=== PATIENT | male | born 1955 | race Caucasian/White ===

== ENCOUNTER 2017-08-28 21:05 | Emergency (ER) | payer MEDICARE, MEDICAID, SELFPAY ==
--- NOTE | 2017-08-28 18:50 | RAD_ITS ---
STUDY: X-RAY - PELVIS AND LEFT HIP REASON FOR EXAM: Male, 62 years old. Fall. TECHNIQUE: Radiological exam, hip, unilateral, with pelvis when performed; 2 or 3 views. COMPARISON: None. FINDINGS: There is a non-specific bowel gas pattern. There are atherosclerotic vascular calcifications of the pelvic arteries. Surgical clips are seen in the right groin. Normal bilateral iliac wings, sacroiliac joints and visualized sacrum. Normal bilateral superior and inferior pubic rami. Normal pubic symphysis. Normal bilateral ischial tuberosities. Normal visualized femoral head. Normal acetabulum. Normal hip joint. RAD/Hip 2-3 Views with Pelvis IMPRESSION: Normal x-ray examination of the pelvis and hip. Electronically Signed: Ronald Sandhu MD at 21:49 EDT , Service support ,
--- NOTE | 2017-08-28 18:50 | RAD_ITS ---
STUDY: X-RAY - LEFT KNEE REASON FOR EXAM: Male, 62 years old. Fall. TECHNIQUE: 3 view(s) of the knee. COMPARISON: None. FINDINGS: There has been dilatation of the tibia and fibula. There is no focal or acute abnormality seen. No fracture. No dislocation. Normal appearance of the knee. No effusion. Vascular calcifications are seen. RAD/Knee 3 Views IMPRESSION: No acute abnormality. Electronically Signed: Ronald Sandhu MD at 21:48 EDT , Service support ,
--- NOTE | 2017-08-28 21:05 | DT_ITS ---
This patient was seen during an EMR downtime August 23, 2017 - August 30, 2017. This patient may have a combination of paper and electronic documentation or all paper documentation. All documentation is viewable within the e-chart portion of [employer] [facility] for each patient visit.
[2017-08-31 17:30] LABS: Hematocrit 33.1 % (40-54); Hemoglobin 11.5 g/dl (13.0-16.5); Mean Corp Hgb Conc 34.7 g/gl (32-36); Mean Corpuscular Hgb 31.2 pg (27.0-32.0); Mean Corpuscular Volume 89.7 fL (80-94); RBC Distribution Width CV 13.3 % (11.6-14.6); Red Blood Count 3.69 M/mm3 (4.6-6.2); White Blood Count 8.6 K/mm3 (4.4-11.0)
[2017-08-31 17:31] LABS: Mean Platelet Vol. 10.2 fl (6.2-12.0); Platelet Count 237 K/mm3 (150-450); RBC Distribution Width SD 43.4 fl (35.1-43.9); Scan Indicated on CBC? Y/N NO
[2017-08-31 20:04] LABS: BUN 25 mg/dL (7-18); BUN/Creat Ratio 19.8 RATIO (10-20); Creatinine, Serum 1.26 mg/dL (0.70-1.30); EST Glomerular Filtration Rate 62 mL/min (>60); Est Glom Filt Rate - Afr Amer 75 mL/min (>60); Estimated Creatinine Clearance 66.72 ml/min; Glucose 285 mg/dL (74-106)
[2017-08-31 20:05] LABS: Anion Gap 8 (5-15); Calcium,Total 8.1 mg/dL (8.5-10.1); Chloride 104 mmol/L (98-107); Potassium 4.3 mmol/L (3.5-5.1); Sodium Level 136 mmol/L (136-145)
== END 2017-08-28 23:33 | disposition home or self-care (01) ==
PROVIDERS: Emergency Provider Emergency Medicine
DX: L03.116 Cellulitis of left lower limb (principal); Z89.512 Acquired absence of left leg below knee; Z89.511 Acquired absence of right leg below knee; Z87.820 Personal history of traumatic brain injury
CPT/HCPCS: 73502; 73562; 80048; 83605; 85027; 86140; 87040; 96365; 96367; 96375; 99285; J7030; J7040; A4216; J2405

== ENCOUNTER 2017-09-03 14:36 | Inpatient (IN) | payer MEDICARE, MEDICAID, SELFPAY ==
[2017-09-03 14:37] VITALS: BP 129/45; PULSE 89; RESP 16; TEMP 36.8; O2SAT 98; BMI 27.8
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
--- NOTE | 2017-09-03 15:38 | CASEMGMT ---
Social Work Note Placed call to pt's human services case manager, Lola Lacey, and left vm notifying of observation status for potential placement. Provided with contact information for a return phone call. Maxine Haas, DIRECTOR RELIGIOUS EDUCATION, ENTERTAINMENT REPORTER
[2017-09-03 15:44] VITALS: BP 91/67; PULSE 77; RESP 18
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
[2017-09-03 16:20] VITALS: BP 119/68
--- NOTE | 2017-09-03 16:33 | CM.ED ---
Case management consulted for disposition planning and resource utilization. Patient assessed in the ED. Home: Patient states he lives with his brother, Raúl. He states that Raúl is not home very often due to work. His states his brother is unable to drive him to appointments. HHS/Aides: Denies home health. He does have aides twice a week for three hours a day. manager sales training is Lola Jacobs, through [facility], for [facility]. DME: Patient has a hospital bed and lift chair. PCP: Dennis Cervantes, with [facility] ([facility] in [place]). Specialists: Denies current specialists. Patient states he discharged from [facility] approximately two months ago. He states that he typically ambulates well with prosthesis. However, he says that since his leg has been swollen and painful, the vacuum on his prosthesis will not secure properly. He states this has caused him to have multiple falls. Patient states he does not feel safe at home alone. Patient is agreeable to to SNF placement. He does not want to go back to [facility]. [facility] SNF is [facility]. DC Plan: SNF pending precert. CM will continue to follow for safe and effective discharge planning.
[2017-09-03 16:41] LABS: Bedside Glucose 205 mg/dL (70-110)
[2017-09-03 16:45] VITALS: BMI 25.1; BMI 25.2
[2017-09-03 16:56] VITALS: BP 114/54; PULSE 84; RESP 16; TEMP 36.7; O2SAT 95
[2017-09-03] MEDS: 0.9% Normal Saline 1,000 ML 75 ML IV (17:30)
[2017-09-03 18:16] LABS: Absolute Lymphocyte Count 0.78 X10^3/ul (0.83-4.51); Basophil# 0.01 X10^3/uL; Basophil% 0.2 % (0-1); Eosinophil# 0.08 X10^3/uL; Eosinophils% 1.5 % (0-5); Hematocrit 28.4 % (40-54); Hemoglobin 9.8 g/dl (13.0-16.5); Lymphocyte # 0.78 X10^3/ul (4.0); Lymphocyte % 14.7 % (19-41); Mean Corp Hgb Conc 34.5 g/gl (32-36); Mean Corpuscular Hgb 31.1 pg (27.0-32.0); Mean Corpuscular Volume 90.2 fL (80-94); Monocyte# 0.44 X10^3/uL; Monocyte% 8.3 % (0-10); Neutrophil # 3.99 X10^3/uL (2.7-7.7); Neutrophil % 75.1 % (47-70); POSITIVE COUNT NO; POSITIVE DIFFERENTIAL NO; POSITIVE MORPHOLOGY NO; Platelet Count 259 K/mm3 (150-450); RBC Distribution Width CV 13.3 % (11.6-14.6); RBC Distribution Width SD 43.7 fl (35.1-43.9); Red Blood Count 3.15 M/mm3 (4.6-6.2); White Blood Count 5.3 K/mm3 (4.4-11.0)
[2017-09-03 18:28] LABS: Anion Gap 5 (5-15); BUN 30 mg/dL (7-18); BUN/Creat Ratio 16.8 RATIO (10-20); Calcium,Total 8.6 mg/dL (8.5-10.1); Chloride 103 mmol/L (98-107); Creatinine, Serum 1.79 mg/dL (0.70-1.30); EST Glomerular Filtration Rate 41 mL/min (>60); Est Glom Filt Rate - Afr Amer 50 mL/min (>60); Estimated Creatinine Clearance 45.57 ml/min; Glucose 264 mg/dL (74-106); Potassium 4.6 mmol/L (3.5-5.1); Sodium Level 132 mmol/L (136-145)
[2017-09-03 19:43] LABS: Bacteria 0 SEEN /hpf (None Seen); Mucous, Urine 0 SEEN /hpf (<or=2+); White Blood Cells 0 SEEN /hpf (0-5)
[2017-09-03 19:45] LABS: Color, Urine Yellow (Yellow); Glucose, Dipstick 50 mg/dl (Normal); Ketone-Dipstick Negative (Negative); Leukocyte Esterase-Dipstick Negative /ul (Negative); Nitrite-Dipstick Negative (Negative); Occult Blood-Urine 25 /ul (Negative); Protein-Dipstick 100 mg/dl (Negative); Specific Gravity, Urine 1.015 (1.002-1.030); Urine Bilirubin Dipstick Negative (Negative); Urine Clarity Clear (Clear); Urine Urobilinogen Normal (Normal)
[2017-09-03 19:59] LABS: Squamous Epithelial Cells - UA 0-5 SEEN /hpf (0-5)
[2017-09-03 20:01] LABS: Hyaline Cast 5-10 SEEN /lpf (0-5)
[2017-09-03 20:02] LABS: Red Blood Cells-Urine 0-5 SEEN /hpf (0-5)
[2017-09-03] MEDS: Pregabalin 75 MG Capsule 150 MG PO (21:08)
[2017-09-03] MEDS: DULoxetine Hcl 60 MG Capsule PO (21:10)
[2017-09-03] MEDS: Atorvastatin Calcium 20 MG Tablet PO (21:10)
[2017-09-03] MEDS: Donepezil HCl 10 MG Tablet PO (21:10)
[2017-09-03] MEDS: Insulin Lispro 100 UNIT/ML INSULN.PEN SC (21:21)
[2017-09-03] MEDS: traZODone 100 MG Tablet 150 MG PO (21:25)
[2017-09-03 21:33] VITALS: BP 125/62; PULSE 89; RESP 18; TEMP 37.1; O2SAT 96
[2017-09-03 21:36] LABS: Bedside Glucose 292 mg/dL (70-110)
--- NOTE | 2017-09-03 23:10 | NURSING ---
Pt's home med list indicates he takes 10 mg Oxycontin po q4h prn. Order obtained from Dr. Luu. Cervantes in pharmacy then called me and stated that Oxycontin would never be ordered q4h prn. He changed order to Oxyir and asked that I change home med list accordingly.
[2017-09-03] MEDS: oxyCODONE 5 MG Tablet 10 MG PO (23:41)
[2017-09-03] MEDS: Acetaminophen 325 MG Tablet 650 MG PO (23:42)
[2017-09-04 02:20] VITALS: BP 128/51; PULSE 83; RESP 18; TEMP 37.1; O2SAT 96
[2017-09-04 06:56] LABS: Bedside Glucose 242 mg/dL (70-110)
[2017-09-04] MEDS: Insulin Lispro 100 UNIT/ML INSULN.PEN SC ×4 (07:01→23:07)
--- NOTE | 2017-09-04 09:49 | CASEMGMT ---
SOCIAL WORK: Case reviewed with legal coordinator this date. This SW met with patient in his room this morning; introduced self and SW role at [facility] for Wednesday coverage. Provided patient with my contact information and advised him of primary SW's name for Wednesday. Patient now states that he owes [facility] $16,000 and that they will not permit him to return to any of their facilities. SW inquired how they could bill him when he has [facility] Medicaid for secondary coverage. Patient indicated that there was a lapse in application process and that he was billed due to [facility]'s error. SW reviewed other SNF options with patient in [facility] along with SNF options in [facility]. Daughter resides in [place] and is expecting a baby in September. Brother resides in [place] and patient plans to return home with this brother; they share a mobile home together. Emotional support provided to patient who discussed medical need for group home in 1994 due to diabetes and current health issues. After patient consideration of different options he requested for this SW to initiate a referral to [facility] in [place], stating that he knows people who have been there before and knows that they have a good reputation. No further needs, questions or concerns identified at this time. Contact initiated with Ashwini with Registration who did confirm that patient's [facility] Medicaid is currently active. PLAN: Referral initiated to Admission's Coordinator, Alana Fair, at [facility] via fax this date; attempted contact with her via phone however she was not available. PT/OT evaluations are pending and will need to be faxed to Alana Fair on Wednesday. Update provided to MAGNOLIA CORMIER,SANTHOSHA
[2017-09-04 10:00] VITALS: BP 152/82; PULSE 81; RESP 18; TEMP 36.9; O2SAT 98
[2017-09-04] MEDS: Donepezil HCl 10 MG Tablet PO (10:08)
[2017-09-04] MEDS: DULoxetine Hcl 60 MG Capsule PO (10:08)
[2017-09-04] MEDS: Loratadine 10 MG Tablet PO (10:08)
[2017-09-04] MEDS: Enoxaparin 30 MG/0.3 ML Syringe SC (10:09)
[2017-09-04] MEDS: amLODIPine 5 MG Tablet PO (10:09)
[2017-09-04] MEDS: Sertraline 50 MG Tablet PO (10:10)
[2017-09-04] MEDS: oxyCODONE 5 MG Tablet 10 MG PO ×4 (10:13→23:07)
[2017-09-04] MEDS: Pregabalin 75 MG Capsule 150 MG PO ×2 (10:14→23:08)
--- NOTE | 2017-09-04 10:55 | NURSING ---
in to talk with patient as verbalized complaint regarding policy on side rails and being told unsafe to sit on edge of bed. pt verbalized that he has ptsd and feels confined in bed with 2 side rails on opposites of the bed up. spent approximately 15minutes talking with pt and in that he did admit that he had feel 4-5 times at home but states that the falls occurred when he was walking and that he had been sent home with crutches to use with a rt prosethesis without using the left prosthetic. pt states that the overnight babysitter RN was aware of the side rails being down and had not problem with this. discussed concerns for his safety. pt remains strong in that he does not want the side rails up at all and does not want the fall risk wrist band on. this nurse also confirmed pt has knowledge of how to operate the speakers for the television to make the sound go through the bed side rails, as well as buttered his toast and got him a pair of PJ pants as requesting. discussed with salon supervisor regarding release of responsibility form regarding the side rails.
--- NOTE | 2017-09-04 12:55 | NURSING ---
informed of pt yelling at dietary staff as he is unable to get milk shake because over his dietary limit. in to room w/ Dr. Ch. aware requested pt treat staff with respect. Aware also informed pt will not charge orders for diet. Hardener Helper discussed lunch menu/options with patient.
--- NOTE | 2017-09-04 13:03 | NS ---
Informed by dietary staff pt requesting milk shake as a patient right. However, pt has too many carbohydrates ordered to accommodate pt request. RD visited pt w/ construction ironworker helper and Dr. Ch. Dr. Ch does not want to change 1800 calorie diet order at this time. RD explained to pt he can have milk shake but must forego another meal selection containing carbohydrates. After lengthy discussion, pt agreeable to cookie instead of milk shake. Pt requesting milk shake for snack, explained to pt kitchen does not provide snacks. Pt verbalized understanding. Explained to pt that kitchen staff will work to accommodate his requests as long as they fall within [address] has not been consulted to complete a nutritional assessment for this pt- please consult RD if further questions/issues arise.
[2017-09-04 13:11] LABS: Bedside Glucose 241 mg/dL (70-110)
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
[2017-09-04 14:20] VITALS: BP 150/76; PULSE 64; RESP 16; TEMP 36.7; O2SAT 98
[2017-09-04 17:16] LABS: Bedside Glucose 261 mg/dL (70-110)
[2017-09-04] MEDS: traZODone 50 MG Tablet 150 MG PO (23:08)
[2017-09-04] MEDS: Atorvastatin Calcium 20 MG Tablet PO (23:09)
[2017-09-04 23:15] VITALS: BP 149/81; PULSE 79; RESP 18; TEMP 37; O2SAT 98
[2017-09-04 23:21] LABS: Bedside Glucose 282 mg/dL (70-110)
[2017-09-05] MEDS: LORazepam 1 MG Tablet PO ×2 (00:26→22:51)
--- NOTE | 2017-09-05 00:26 | NURSING ---
MEDICATED WITH ATIVAN 1MG PO FOR ANXIETY
[2017-09-05] MEDS: oxyCODONE 5 MG Tablet 10 MG PO ×5 (03:25→22:45)
[2017-09-05 06:46] LABS: Bedside Glucose 212 mg/dL (70-110)
[2017-09-05] MEDS: Insulin Lispro 100 UNIT/ML INSULN.PEN SC ×4 (07:29→22:56)
[2017-09-05 09:49] VITALS: BP 151/74; PULSE 77; RESP 16; TEMP 36.6; O2SAT 97
[2017-09-05] MEDS: DULoxetine Hcl 60 MG Capsule PO (09:58)
[2017-09-05] MEDS: Loratadine 10 MG Tablet PO (09:58)
[2017-09-05] MEDS: Donepezil HCl 10 MG Tablet PO (09:58)
[2017-09-05] MEDS: amLODIPine 5 MG Tablet PO (09:58)
[2017-09-05] MEDS: Sertraline 50 MG Tablet PO (09:58)
[2017-09-05] MEDS: Enoxaparin 30 MG/0.3 ML Syringe SC (09:59)
[2017-09-05 10:00] VITALS: PULSE 80
[2017-09-05] MEDS: Pregabalin 75 MG Capsule 150 MG PO ×2 (10:02→22:45)
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
[2017-09-05 13:01] LABS: Bedside Glucose 258 mg/dL (70-110)
[2017-09-05 13:57] VITALS: BP 125/69; PULSE 78; RESP 18; TEMP 36.5; O2SAT 95
[2017-09-05 20:30] VITALS: BP 152/81; PULSE 84; RESP 20; TEMP 36.8; O2SAT 95
[2017-09-05 20:51] LABS: Bedside Glucose 243 mg/dL (70-110)
[2017-09-05] MEDS: traZODone 50 MG Tablet 150 MG PO (22:45)
[2017-09-05] MEDS: Atorvastatin Calcium 20 MG Tablet PO (22:51)
[2017-09-05 23:11] LABS: Bedside Glucose 262 mg/dL (70-110)
[2017-09-05 23:11] LABS: Bedside Glucose 282 mg/dL (70-110)
[2017-09-06 02:30] VITALS: BP 147/78; PULSE 83; RESP 18; TEMP 37.2; O2SAT 96
[2017-09-06] MEDS: oxyCODONE 5 MG Tablet 10 MG PO ×5 (02:41→20:32)
[2017-09-06] MEDS: Insulin Lispro 100 UNIT/ML INSULN.PEN SC ×4 (07:04→22:04)
[2017-09-06 08:25] LABS: Bedside Glucose 236 mg/dL (70-110)
[2017-09-06 08:50] VITALS: PULSE 70
--- NOTE | 2017-09-06 08:51 | CASEMGMT ---
Social Work Note SW faxed updated clinicals to [facility]. Plan: [facility] pending acceptance Samara Chavez NUCLEAR PHYSICS PROFESSOR, DISTRIBUTION MANAGER
[2017-09-06 09:48] VITALS: BP 132/77; PULSE 84; RESP 18; TEMP 36.6; O2SAT 98
[2017-09-06] MEDS: Loratadine 10 MG Tablet PO (10:05)
[2017-09-06] MEDS: amLODIPine 5 MG Tablet PO (10:06)
[2017-09-06] MEDS: Sertraline 50 MG Tablet PO (10:06)
[2017-09-06] MEDS: Enoxaparin 30 MG/0.3 ML Syringe SC (10:06)
[2017-09-06] MEDS: Pregabalin 75 MG Capsule 150 MG PO ×2 (10:16→22:03)
[2017-09-06] MEDS: Donepezil HCl 10 MG Tablet PO (10:55)
[2017-09-06] MEDS: DULoxetine Hcl 60 MG Capsule PO (10:55)
--- NOTE | 2017-09-06 12:19 | CASEMGMT ---
Social Work Note SW placed a call to [facility] and spoke with Dapnhe in admissions. Daphne states that she informed the shop director (DON)of referral and the shop director is currently reviewing referral and will give this worker a call. Daphne states that typically they don't accept traumatic brain injury (TBI) pt's as their behaviors can be unpredictable, but that the DON is reviewing referral. RISHABH waiting for call back form DON in regards to referral. Plan: [facility] pending acceptance Samara Chavez METEOROLOGICAL AIDE, PROJECT DEVELOPMENT LEADER
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
[2017-09-06 13:26] LABS: Bedside Glucose 329 mg/dL (70-110)
[2017-09-06 13:31] LABS: Hemoglobin 11.5 g/dl (13.0-16.5); Mean Corp Hgb Conc 34.8 g/gl (32-36); Mean Corpuscular Hgb 31.8 pg (27.0-32.0); Mean Corpuscular Volume 91.2 fL (80-94); Mean Platelet Vol. 9.7 fl (6.2-12.0); Platelet Count 368 K/mm3 (150-450); RBC Distribution Width CV 12.5 % (11.6-14.6); RBC Distribution Width SD 40.6 fl (35.1-43.9); Red Blood Count 3.62 M/mm3 (4.6-6.2); White Blood Count 5.5 K/mm3 (4.4-11.0)
--- NOTE | 2017-09-06 13:31 | NURSING ---
CALLED [facility] IN [place] AND PT TAKE LANTUS 18 UNITS AT HS- PT STATED THAT HE TOOK IT BID
[2017-09-06 13:37] LABS: Scan Indicated on CBC? Y/N NO
--- NOTE | 2017-09-06 13:56 | CASEMGMT ---
Addendum entered by Samara Chavez 09/06/17 15:56: SW met with pt again to confirm discharge plans. Pt states that he would like to go home at discharge if he is able to get his leg better. SW asked pt what his next choice for skilled nursing would be if he had to go somewhere. Pt states that he spoke with the SW on Wednesday who had mentioned a new skilled nursing in [place]. Pt was unsure of name. This worker sent CASA Whitney an email asking her if she knew which skilled nursing pt is mentioning. Pt states that his first choice would be to return home at discharge if he is able to walk and if his leg gets better. Plan: Home with resumption of aide services vs. SNF [facility] Original Note: Social Work Note SW received call from Maxine BAINS in case management updating this worker that she received a call from Krystyna at [facility] stating that they are unable to accept pt. SW in to update pt of this. SW introduced self at [facility]. Pt states that he was previously independent with ADLs and that he would like to return home at discharge if his cellulitis gets cleared. Pt states that he fears going to a skilled nursing and that his first choice would be to return home at discharge. Dr. Blue entered room and this worker exited room. SW will check back with pt later to confirm discharge plans. Plan: Pt would like to return home at discharge Samara GOMEZ, TRIM CREW SUPERVISOR
--- NOTE | 2017-09-06 14:00 | CT_ITS ---
STUDY: CT LEFT FEMUR/KNEE WITH CONTRAST REASON FOR EXAM: Pain and redness distal to the knee stump. TECHNIQUE: Transaxial CT imaging of the femur/knee was performed post contrast administration. The examination was performed with intravenous administration of 100mL ml of Isovue 300 contrast material. Sagittal and coronal images were reconstructed. Individualized dose optimization techniques were used for this CT. COMPARISON: None. FINDINGS: Normal visualized femur. There is no substantial joint space loss of the left hip or left knee. There is a below the knee amputation without osseous destruction of the remaining tibia or fibula. There is soft tissue swelling at the stump and a fluid collection with a contrast enhancing thin wall at the distal anterior aspect of the tibial amputation site (axial images [id number]; sagittal reconstructions 51-56) measuring 2.1 x 2.4 x 3.4 cm (AP x transverse x length). There is vascular calcification. CT/Extremity Lower WITH Contrast IMPRESSION: Soft tissue abscess at the distal anterior aspect of the tibial amputation without demonstrated bone destruction to indicate osteomyelitis. Electronically Signed: Darius Ayala MD at 16:08 EDT Tel , Service support ,
[2017-09-06 14:02] LABS: ALB/GLOB Ratio 0.6 RATIO (0.9-2.4); AST(SGOT) 24 U/L (15-37); Alanine Aminotransfer ALT/SGPT 36 U/L (16-61); Albumin, Serum 2.8 g/dL (3.2-5.0); Alkaline Phosphatase 141 U/L (45-117); Anion Gap 6 (5-15); BUN 16 mg/dL (7-18); BUN/Creat Ratio 14.8 RATIO (10-20); Chloride 104 mmol/L (98-107); Creatinine, Serum 1.08 mg/dL (0.70-1.30); EST Glomerular Filtration Rate 74 mL/min (>60); Est Glom Filt Rate - Afr Amer 89 mL/min (>60); Estimated Creatinine Clearance 75.53 ml/min; Globulin 4.9 g/dL (2.2-4.2); Glucose 316 mg/dL (74-106); Magnesium 1.9 mg/dL (1.6-2.6); Phosphorus 3.3 mg/dL (2.5-4.9); Potassium 5.3 mmol/L (3.5-5.1); Protein, Total 7.7 g/dL (6.4-8.2); Sodium Level 137 mmol/L (136-145)
[2017-09-06 14:08] LABS: Hemoglobin A1c 8.8 % (4.2-6.3)
[2017-09-06 15:45] LABS: Erythrocyte Sedimentation Rate 54 mm/hr (0-20)
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
[2017-09-06 16:20] VITALS: BP 146/74; PULSE 84; RESP 18; TEMP 36.4; O2SAT 96
[2017-09-06 16:40] LABS: Bedside Glucose 246 mg/dL (70-110)
[2017-09-06 20:31] VITALS: BP 160/73; PULSE 84; RESP 18; TEMP 36.4; O2SAT 99
[2017-09-06] MEDS: Loperamide 2 MG Capsule PO (20:32)
[2017-09-06] MEDS: traZODone 50 MG Tablet 150 MG PO (22:03)
--- NOTE | 2017-09-06 22:03 | PCM.CONS.GEN ---
Reason for Consult Date of Consultation: 09/06/17 Reason for Consultation: Diabetic abscess left knee and left BKA stump. REFERRING PHYSICIAN: Dr. Blue. PRIMARY PRODUCTS INSPECTORS: Dr. Andrew. History of Present Illness: The patient is a 62 year old M who was recently admitted because of recent falls at home and having difficulty caring for himself at home. He alos was having increasing pain and swelling in his left BKA stump. He has a history of diabetes mellitus. He has a history of MRSA. He was placed on Unasyn. A recent CT scan showed an abscess in his left BKA stump. I was asked to evaluate this patient for surgical options for treatment. Past Medical History Past Medical History (Chronic Problems): Chronic Problems Osteomyelitis of left tibia (Chronic) Ulceration of below knee amputation stump (Chronic) nonhealing diabetic ulcer left BKA stump Complication of amputation stump of left lower extremity (Chronic) Chronic pain syndrome (Chronic) Chronic renal failure, stage 2 (mild) (Chronic) stage 2-3 Hyperlipidemia (Chronic) Allergic rhinitis (Chronic) Polyneuropathy (Chronic) Insomnia (Chronic) Depression (Chronic) Traumatic brain injury (Chronic) Status post bilateral below knee amputation (Chronic) Type 2 diabetes mellitus (Chronic) poorly controlled Hypertension (Chronic) Allergies No Known Allergies Allergy (Verified 09/03/17 14:41) Current Medications Acetaminophen (Tylenol) 650 mg PO Q6H PRN PRN Amlodipine Besylate (Norvasc) 5 mg PO DAILY YULIYA Atorvastatin Calcium (Lipitor) 20 mg PO QHS YULIYA Donepezil HCl (Aricept) 10 mg PO DAILY YULIYA Duloxetine HCl (Cymbalta) 60 mg PO DAILY YULIYA Enoxaparin Sodium (Lovenox) 30 mg SC DAILY@1000 YULIYA Ampicillin Sodium/Sulbactam (Sodium 3 gm/ Sodium Chloride) 112 mls @ 150 mls/hr IV Q6 YULIYA Insulin Detemir (Levemir (Bk)) 18 units SC BID YULIYA Insulin Human Lispro (Humalog Kwikpen (Bk)) 0 unit SC ACHS YULIYA Loperamide HCl (Imodium) 2 mg PO X1 PRN Loratadine (Claritin) 10 mg PO DAILY YULIYA Magnesium Hydroxide (Milk Of Magnesia) 30 ml PO DAILY PRN Ondansetron HCl (Zofran) 4 mg IV Q8H PRN Oxycodone HCl (Oxyir) 10 mg PO Q4H PRN Pregabalin (Lyrica) 150 mg PO BID [facility] Sertraline HCl (Zoloft) 50 mg PO DAILY YULIYA Trazodone HCl (Desyrel) 150 mg PO QHS [facility] Valsartan (Diovan) 320 mg PO DAILY [facility] Home Medications: Ambulatory Orders Medication Instructions Recorded Amlodipine [Norvasc] 5 mg PO DAILY 09/03/17 Atorvastatin Calcium 20 mg PO QHS 09/03/17 Donepezil HCl 10 mg PO DAILY 09/03/17 Duloxetine HCl 60 mg PO DAILY 09/03/17 Fluticasone/Salmeterol [Advair 1 each IH BID 09/03/17 100-50 Diskus] Loratadine 10 mg PO DAILY 09/03/17 Pregabalin [Lyrica] 150 mg PO BID 09/03/17 Trazodone HCl 150 mg PO QHS 09/03/17 Valsartan [Diovan] 320 mg PO DAILY 09/03/17 Amoxicillin/Potassium Clav 1 each PO BID 09/10/17 [Augmentin 875-125 Tablet] Insulin Detemir [Levemir FlexPen] 14 units SC QHS 09/10/17 Oxycodone [Oxyir] 15 mg PO Q4H PRN PRN #1 tablet 09/10/17 Surgical History: cataract, - - Bilateral below knee amputation. Psychiatric History: No pertinent psych hx, Depression Lives: With Family Smoking Status: Former smoker Tobacco Use: Cigarettes Alcohol: Occasional Drugs: None - *Family History Maternal History Items: No pertinent history Paternal History Items: No pertinent history Review of Systems Comment: Constitutional: Reports: Weakness. Denies: Anorexia, Chills, Fever. Eyes: Denies: Blurred vision, Conjunctivae Inflammation, Drainage, Redness. HEENT: Denies: Difficulty Hearing, Ear Pain, Eye Pain, Nasal Congestion, Sore Throat. Cardiovascular: Denies: Chest Pain, Chest Tightness, Heaviness, Palpitations, Syncope. Respiratory: Denies: Cough, Pleuritic Pain, Shortness of Breath, Sputum production, Wheezing. Gastrointestinal: Denies: Abdominal Pain, Diarrhea, Nausea, Vomiting. Genitourinary: Denies: Dysuria, Frequency, Hematuria. Musculoskeletal: Denies: Arm Pain, Back Pain, Foot Pain. Skin: Denies: Dryness, Rash. Neurological: Denies: Balance problems, Double vision, Change in Speech, Slurred speech, Headaches, Incoordination, Numbness. Psychiatric: Reports: Depression. Denies: Anxiety. Endocrine: Denies: Change in Body Habitus, Polydipsia Patient Problems: Active and Suspected Problems Fall (Acute) - Physical Exam General: Alert, Oriented x3. HEENT: PERRLA, EOMI. Oral: Moist Mucosa. Neck: Supple, Nontender. No cervical adenopathy. Lungs: Clear to auscultation. Cardiovascular: Regular rate, Regular Rhythm. Abdomen: Soft, nondistended. Extremities: - - Status post bilateral below-knee amputation. On the left BKA stump is an area of fluctuance. Tender to palpation. In the left inferior knee area in area of tibial tubercle is an area of redness and swelling and tenderness to palpation. There is also a nonhealing ulcer in the area of the stump incision. No purulent drainage noted. Lymphatic: No Cervical, Supraclavicular, or Inguinal Adenopathy Neurological: Cranial nerves II-XII grossly intact. Psych/Mental Status: Normal Affect, Appropriate, Alert and oriented to time, place, person, mood and affect Vital Signs Temp Pulse Resp BP Pulse Ox 97.6 F L 84 18 160/73 H 99 09/06/17 20:31 09/06/17 20:31 09/06/17 20:31 09/06/17 20:31 09/06/17 20:31 Oxygen Delivery Method Room Air Weight: 180 lb 5.41 oz Intake and Output for Last 24 Hours 09/04/17 09/05/17 09/06/17 23:59 23:59 23:59 Intake Total 1000 / 3158 2350 / 2350 1999 / 1999 Output Total 800 / 2550 3125 / 3125 4050 / 4050 Balance 200 / 608 -775 / -775 -2050 / -2049 Laboratory Tests Past 24 Hrs 09/06/17 09/06/17 09/06/17 13:05 13:05 13:05 WBC 5.5 RBC 3.62 L Hgb 11.5 L Hct 33.0 L MCV 91.2 MCH 31.8 MCHC 34.8 RDW 12.5 RDW Differential 40.6 Plt Count 368 MPV 9.7 ESR Sodium 137 Potassium 5.3 H Chloride 104 Carbon Dioxide 27.0 Anion Gap 6 BUN 16 Creatinine 1.08 Estim Creat Clear Calc 75.53 Est GFR (MDRD) Af Amer 89 Est GFR (MDRD) Non-Af 74 BUN/Creatinine Ratio 14.8 Glucose 316 H Hemoglobin A1c 8.8 H Calcium 9.0 Phosphorus 3.3 Magnesium 1.9 Total Bilirubin 0.20 AST 24 ALT 36 Alkaline Phosphatase 141 H C-React Prot Ext Range Total Protein 7.7 Albumin 2.8 L Globulin 4.9 H Albumin/Globulin Ratio 0.6 L 09/06/17 09/06/17 13:05 13:05 WBC RBC Hgb Hct MCV MCH MCHC RDW RDW Differential Plt Count MPV ESR 54 H Sodium Potassium Chloride Carbon Dioxide Anion Gap BUN Creatinine Estim Creat Clear Calc Est GFR (MDRD) Af Amer Est GFR (MDRD) Non-Af BUN/Creatinine Ratio Glucose Hemoglobin A1c Calcium Phosphorus Magnesium Total Bilirubin AST ALT Alkaline Phosphatase C-React Prot Ext Range 37.50 H Total Protein Albumin Globulin Albumin/Globulin Ratio POC Glucose 09/06/17 09/06/17 09/06/17 16:26 13:02 07:01 POC Glucose 246 H 329 H 236 H 09/05/17 09/05/17 22:55 20:50 POC Glucose 282 H 262 H Diagnostic Data Lower Extremity CT 09/06/17 14:00 IMPRESSION: Soft tissue abscess at the distal anterior aspect of the tibial amputation without demonstrated bone destruction to indicate osteomyelitis. Electronically Signed: Darius Ayala MD at 16:08 EDT Tel , Service support , Assessment/Plan All Active Problems Abscess of left knee (Acute) Infection of amputation stump of left lower extremity (Acute) Hematoma of amputation stump of left lower extremity (Acute) Cellulitis and abscess of left leg (Acute) Fall (Acute) 1. Left BKA stump diabetic abscess. 2. Nonhealing diabetic ulcer left BKA stump. 3. Left inferior knee diabetic abscess. 4. Diabetes mellitus. Patient has pain in left inferior knee and left BKA stump. He has associated redness and swelling. He has fallen recently. CT scan showed a fluid collection consistent with an abscess. Operative intervention is recommended. Will proceed with incision and drainage and if the bone is involved, a partial ostectomy for osteomyelitis will be done. Will open up both areas involving the left inferior knee and the left BKA stump. Will send tissue to Pathology for analysis to rule out carcinoma and to evaluate for osteomyelitis. Will send tissue to Microbiology for culture. A positive culture may necessitate antibiotic modification. Currently he is on Unasyn. Postop wound care will involve the VAC. After discharge, he can followup at the Wound Center to discuss operative timing for secondary closure revision of the stump. Anticipate increased metabolic demands from the infection and from the surgery. Will check a Prealbumin and will encourage nutritional supplementation with protein to help the healing process. Surgery will be done under general anesthesia. Will proceed with the surgery tomorrow. Patient was informed of the risks and complications of the procedure including alternatives to surgery. These were discussed with the patient personally. Patient voices understanding and wishes to proceed. Code Visit Inpatient E&M: 59519 Init Hosp L2 - ICD-10 - T87.44, T87.89, L02.416, E11.622
[2017-09-06] MEDS: Atorvastatin Calcium 20 MG Tablet PO (22:04)
[2017-09-06 22:15] LABS: Bedside Glucose 293 mg/dL (70-110)
[2017-09-07] VITALS (8 sets, daily range): BP systolic 110–147; BP diastolic 57–87; PULSE 81–101; RESP 16–18; TEMP 36.1–36.8; O2SAT 93–99; BMI 25.1; BMI 25.2
[2017-09-07] MEDS: 0.9% NaCl Peripheral Flush Adult/Peds IV ×2 (01:09→20:09)
[2017-09-07 07:01] LABS: Bedside Glucose 165 mg/dL (70-110)
--- NOTE | 2017-09-07 07:30 | SOF_PTH ---
PATIENT: Pancho Mustafa LOC: [facility] U#:[id number] AGE/SX: 62/M ROOM: [facility]310 RE09/04/[address]: Dr. Alana Blue DO : 1955 BED: 1 DIS: 09/10/2017 SPEC #: [id number] RECD: 09/08/17 09:17 STATUS: AUDREY REQ #: [id number] LEATHA: 09/07/17 07:[address]: García Andrew DEPT: SURGICAL PATHOLOGY RECD BY: Carlos Lewis ENTERED: 09/08/17 12:12 SP TYPE: SOFT TISS OTHR DR: DO Dr. Lizzie Mcginnis MD Out of Town Doctor Tissues: A - Soft tissues, NOS B - Bone of lower extremity, NOS Procedures: Decalcification bone/plaque Surgery Specimen Level III Comments: @ Ordering doctor for SUIII edited from to @ julia HASSAN at 09/08/17 1212 @ Ordering doctor for SUIV edited from to @ julia HASSAN at 09/08/17 1212 @ Submitting doctor edited from to @ julia HASSAN at 09/08/17 1212 HEADER OPERATION: Incision and drainage abscess BKA stump PRE-OP DIAGNOSIS: Abscess left below knee amputation stump TISSUE SUBMITTED: A ? Soft tissue abscess left below knee amputation, B ? Bone abscess left below knee amputation MICROSCOPIC DIAGNOSIS A. Soft tissue abscess left below knee amputation: Skin with underlying tissue with focal granulation tissue reaction and reactive changes. B. Bone abscess left below knee amputation: Pieces of bone and adherent fragments of dense fibroconnective tissue with reactive changes, negative for acute osteomyelitis. CAROLINE:cori 09/10/17 MICROSCOPIC DESCRIPTION Slides are reviewed. GROSS DESCRIPTION A - Received in fixative is one container labeled with the patient's name and designated soft tissue abscess left BKA. The specimen consists of a piece of cho-white skin with underlying soft tissue measuring 6.5 x 1.5 cm and up to 2 cm in thickness. Sections do not reveal any mass lesion. [employer] sections are submitted in two cassettes. B - Received in fixative is one container labeled with the patient's name and designated bone abscess left BKA. The specimen consists of multiple fragments of bone that in aggregate measure 2 x 1 x 0.3 cm. The entire specimen is submitted in one cassette after decalcification. / CAROLINE:cori 09/08/17 TC:5 CPT: 40793 x2, 63239
[2017-09-07 09:56] LABS: Bedside Glucose 178 mg/dL (70-110)
--- NOTE | 2017-09-07 11:11 | NURSING ---
REPORT CALLED TO ARI IN AC FOR PRE-OP
--- NOTE | 2017-09-07 12:38 | CASEMGMT ---
Social Work Note Geyser Ilene updated this worker that she received a call from [employer] providing her with [employer] CM name and phone number for pt. Pt's Scrap Drop Operator through [employer] is Lola Erickson and her number is [phone]. Pt is currently with Dr. Andrew having surgery. SW will follow up with pt once pt returns to floor to confirm discharge plans. Plan: Return home with resumption of aide services and Passport services vs. SNF [facility] INSTRUMENT INSPECTOR, SLOT TECHNICIAN
--- NOTE | 2017-09-07 15:11 | CASEMGMT ---
Social Work Note Pt had surgery today with Dr. Andrew. Pt was not on floor when this worker left for the day. SW will follow up with pt tomorrow to confirm discharge plans. Plan: Home with resumption of aide services and Passport services vs. SNF [facility] TRY ON BASTER, CLIENT SERVICE REPRESENTATIVE
--- NOTE | 2017-09-07 15:56 | PCM.IMDPSTOP ---
Immediate Post-Op Note Date of Procedure: 09/07/17 Primary Surgeon/Physician: García Andrew electric blanket wirer: None Pre-Operative Diagnosis: 1. Left BKA stump diabetic abscess. 2. Nonhealing diabetic ulcer left BKA stump. 3. Diabetes mellitus. Post-Operative Diagnosis: 1. Left BKA stump diabetic abscess hematoma. 2. Nonhealing diabetic ulcer left BKA stump. 3. Left inferior knee diabetic abscess. 4. Diabetes mellitus. Surgery/Procedure Performed:: 1. Surgical preparation left BKA stump with incision and drainage and excisional debridement hematoma abscess and nonhealing diabetic ulcer. 2. Partial ostectomy left tibia for osteomyelitis. 3. Partial secondary closure revision left BKA stump. 4. Incision and drainage diabetic abscess left inferior knee. Description of Surgical Findings:: The patient is a 62 year old M who was recently admitted because of recent falls at home and having difficulty caring for himself at home. He alos was having increasing pain and swelling in his left BKA stump. He has a history of diabetes mellitus. He has a history of MRSA. He was placed on Unasyn. A recent CT scan showed an abscess in his left BKA stump. I was asked to evaluate this patient for surgical options for treatment. Today the patient underwent surgical preparation left BKA stump with incision and drainage and excisional debridement hematoma abscess and nonhealing diabetic ulcer and partial ostectomy left tibia for osteomyelitis and partial secondary closure revision left BKA stump and incision and drainage diabetic abscess left inferior knee. I used Mohsen absorbable hemostat. Reference Number - [id number]. Lot Number - [id number]. Expiration - April 18, 2022. Size of defect left BKA stump - 10 x 3 x 1 cm. Size of defect left inferior knee - 3.5 x 0.5 x 1 cm. Estimated Blood Loss: 100 ml. Specimen's removed: 1. Diabetic ulcer with abscess hematoma left BKA stump to Pathology and Microbiology. 2. Left BKA stump tibial bone to Pathology and Microbiology. 3. Diabetic abscess left inferior knee to Microbiology. 4. MRSA Wound DNA by PCR. Drains: None. Type of Anesthesia:: General - Admit VTE Documentation VTE Present on Admission: No VTE Mechan Device Prophylaxis: SCD's VTE Pharm Prophylaxis ordered?: Yes
[2017-09-07 16:11] LABS: Bedside Glucose 204 mg/dL (70-110)
--- NOTE | 2017-09-07 16:14 | CHAPLAIN ---
patient and bed were out of the room when visit was attempted
--- NOTE | 2017-09-07 16:38 | CM.ED ---
Social Work Note Call from Lola Lacey at [facility] wanting to be updated with pt's discharge plan. She can be reached at [phone]. Updated following RISHABH. Maxine Haas, HUMIDIFIER ATTENDANT, FISHER TERRAPIN
--- NOTE | 2017-09-07 17:10 | NURSING ---
This nurse called into room by TORNADO CHASER as she found dressing off stump and lying in bed next to him. Patient states that he has restless legs and it just came off. Dr. Andrew aware, re-dressed with betadine soaked gauze, kerlix, abd, and wrapped in TAD. Primary RN aware, pt reminded to be cautious and keep dressing in place.
[2017-09-07] MEDS: Donepezil HCl 10 MG Tablet PO (17:53)
[2017-09-07] MEDS: DULoxetine Hcl 60 MG Capsule PO (17:53)
[2017-09-07] MEDS: Sertraline 50 MG Tablet PO (17:53)
[2017-09-07] MEDS: Loratadine 10 MG Tablet PO (17:53)
[2017-09-07] MEDS: amLODIPine 5 MG Tablet PO (17:54)
[2017-09-07] MEDS: oxyCODONE 5 MG Tablet 10 MG PO ×2 (17:57→22:42)
--- NOTE | 2017-09-07 19:04 | PCM.OPRPT ---
Report of Operation Date of Procedure: 09/07/17 Pre-Operative Diagnosis: 1. Left BKA stump diabetic abscess. 2. Nonhealing diabetic ulcer left BKA stump. 3. Left inferior knee diabetic abscess. 4. Diabetes mellitus. Post-Operative Diagnosis: 1. Left BKA stump diabetic abscess hematoma. 2. Nonhealing diabetic ulcer left BKA stump. 3. Left inferior knee diabetic abscess. 4. Diabetes mellitus. Surgery/Procedure Performed:: 1. Surgical preparation left BKA stump with incision and drainage and excisional debridement hematoma abscess and nonhealing diabetic ulcer. 2. Partial ostectomy left tibia for osteomyelitis. 3. Partial secondary closure revision left BKA stump. 4. Incision and drainage diabetic abscess left inferior knee. Description of Surgical Findings:: The patient is a 62 year old M who was recently admitted because of recent falls at home and having difficulty caring for himself at home. He alos was having increasing pain and swelling in his left BKA stump. He has a history of diabetes mellitus. He has a history of MRSA. He was placed on Unasyn. A recent CT scan showed an abscess in his left BKA stump. I was asked to evaluate this patient for surgical options for treatment. Patient was informed of the risks and complications of the procedure including alternatives to surgery. These were discussed with the patient personally. Patient voices understanding and wishes to proceed. I used Mohsen absorbable hemostat. Reference Number - [id number]. Lot Number - [id number]. Expiration - April 18, 2022. Size of defect left BKA stump - 10 x 3 x 1 cm. Size of defect left inferior knee - 3.5 x 0.5 x 1 cm. chair: None Type of Anesthesia:: General Specimen's removed: 1. Diabetic ulcer with abscess hematoma left BKA stump to Pathology and Microbiology. 2. Left BKA stump tibial bone to Pathology and Microbiology. 3. Diabetic abscess left inferior knee to Microbiology. 4. MRSA Wound DNA by PCR. Drains: None. Estimated Blood Loss (mL): 100 ml. Description of Procedure: Patient was taken to OR in supine position and was placed under general anesthesia. His left BKA stump was prepped and draped in the usual fashion. No SCD's were placed for DVT prophylaxis as he has bilateral BKA's. So he is taking chemoprophylaxis. Perioperative antibiotics were given intravenously. Using xylocaine with epinephrine, I infiltrated the stump incision and the nonhealing diabetic ulcer as well as the area in the left inferior knee. After waiting 5 minutes for the anesthetic to take effect, I proceeded with incision through the stump incision down through the muscle into the tibial bone was seen. There was a fluid collection deep by the bone with some bleeding indicative of a hematoma. This was the result of the patient falling a few times recently. Some localized bleeding was controlled with electrocautery and 3-0 Vicryl suture ligatures. The tibial bone edge was irregular that is suspicious for osteomyelitis. A partial ostectomy of the tibia was done with a rongeur. The remaining bone was smoothed out with a rasp. The nonhealing diabetic ulcer on the stump was excised and debrided. Half the soft tissue and half the bone was sent to Pathology for analysis to rule out carcinoma and to evaluate for osteomyelitis. Half the soft tissue and half the bone was sent to Microbiology for culture. A swab was sent for MRSA Wound DNA by PCR. A positive culture may necessitate antibiotic modification. The wound was irrigated with saline. A partial secondary closure revision was done on the BKA stump by approximating the muscle layer to cover the exposed bone. This was done with 2-0 Vicryl figure of eight interrupted sutures. The size of the stump defect is 10 x 3 x 1 cm. There was another painful swollen area on his left inferior knee. A longitudinal incision was made into the subcutaneous tissue. I dissected down to the underlying fascia. The fascia was inflamed yet viable. Some fat necrosis was present. A fluid pocket was noted and drained. Some milky fluid was noted but no pus was seen. Tissue and fluid was sent to Microbiology for culture. A swab was sent for MRSA Wound DNA by PCR. A positive culture may necessitate antibiotic modification. The wound was irrigated with saline. Hemostasis obtained with electrocautery. I then sprayed Mohsen absorbable hemostat into both wounds to help minimize drainage issues. The size of the defect left inferior knee was 3.5 x 0.5 x 1 cm. I then packed both wounds with Mepitel nonadherent dressing followed by gauze and Betadine followed by dry Kerlix gauze and ABD pads and a compression TAD wrap. Patient tolerated the procedure well and was sent to PACU in satisfactory condition. He will be sent back upstairs for continued postop care. The VAC will be placed tomorrow. He will be evaluated for ECF placement. After discharge, he can followup at the Wound Center to assess surgical timing of stump secondary closure revision. Grafts/Implants Used: None. - Complications None. - Admit VTE Documentation VTE Present on Admission: No VTE Mechan Device Prophylaxis: SCD's VTE Pharm Prophylaxis ordered?: Yes Code Visit Surgery Charges CPT - 35832 ICD-10 - M86.9, T87.44, T87.89, E11.622 44770 T87.89, T87.44, E11.622 21733 M86.9, T87.89, T87.44, E11.622 68693 L02.416, E11.622
[2017-09-07] MEDS: HYDROmorphone 1 MG/ML Syringe IV (20:09)
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
[2017-09-07 21:25] LABS: M R Staph aureus DNA By PCR Negative (Negative); Probe Check PASS; Staph aureus DNA By PCR POSITIVE (Negative)
[2017-09-07] MEDS: diazePAM 5 MG Tablet PO (22:42)
[2017-09-07] MEDS: Atorvastatin Calcium 20 MG Tablet PO (22:42)
[2017-09-07] MEDS: traZODone 50 MG Tablet 150 MG PO (22:42)
[2017-09-07] MEDS: Pregabalin 75 MG Capsule 150 MG PO (22:43)
[2017-09-07 23:11] LABS: Bedside Glucose 157 mg/dL (70-110)
[2017-09-08] MEDS: 0.9% NaCl Peripheral Flush Adult/Peds IV ×3 (00:33→20:37)
[2017-09-08] MEDS: HYDROmorphone 1 MG/ML Syringe IV ×5 (00:33→20:37)
[2017-09-08] MEDS: oxyCODONE 5 MG Tablet 10 MG PO ×5 (02:40→22:13)
[2017-09-08 04:36] VITALS: BP 108/63; PULSE 86; RESP 18; TEMP 36.6; O2SAT 93
[2017-09-08] MEDS: diazePAM 5 MG Tablet PO ×3 (05:07→22:13)
[2017-09-08 06:27] LABS: Hematocrit 27.6 % (40-54); Hemoglobin 9.2 g/dl (13.0-16.5); Mean Corp Hgb Conc 33.3 g/gl (32-36); Mean Corpuscular Hgb 31.1 pg (27.0-32.0); Mean Corpuscular Volume 93.2 fL (80-94); Mean Platelet Vol. 9.8 fl (6.2-12.0); Platelet Count 366 K/mm3 (150-450); RBC Distribution Width CV 12.7 % (11.6-14.6); RBC Distribution Width SD 41.8 fl (35.1-43.9); Red Blood Count 2.96 M/mm3 (4.6-6.2); White Blood Count 5.7 K/mm3 (4.4-11.0)
[2017-09-08 06:31] LABS: Scan Indicated on CBC? Y/N NO
[2017-09-08] MEDS: Insulin Lispro 100 UNIT/ML INSULN.PEN SC ×4 (07:06→22:14)
[2017-09-08 07:31] LABS: Bedside Glucose 163 mg/dL (70-110)
[2017-09-08 07:34] LABS: Anion Gap 10 (5-15); BUN 22 mg/dL (7-18); BUN/Creat Ratio 16.3 RATIO (10-20); Calcium,Total 8.1 mg/dL (8.5-10.1); Chloride 104 mmol/L (98-107); Creatinine, Serum 1.35 mg/dL (0.70-1.30); EST Glomerular Filtration Rate 57 mL/min (>60); Est Glom Filt Rate - Afr Amer 69 mL/min (>60); Estimated Creatinine Clearance 60.43 ml/min; Glucose 157 mg/dL (74-106); Potassium 4.1 mmol/L (3.5-5.1); Prealbumin 13.2 mg/dL (20.0-40.0); Sodium Level 138 mmol/L (136-145)
[2017-09-08 08:50] VITALS: O2SAT 87
[2017-09-08] MEDS: DULoxetine Hcl 60 MG Capsule PO (08:50)
[2017-09-08] MEDS: Sertraline 50 MG Tablet PO (08:51)
[2017-09-08] MEDS: Enoxaparin 30 MG/0.3 ML Syringe SC (08:51)
[2017-09-08] MEDS: Loratadine 10 MG Tablet PO (08:51)
[2017-09-08] MEDS: Donepezil HCl 10 MG Tablet PO (08:51)
[2017-09-08] MEDS: amLODIPine 5 MG Tablet PO (08:51)
[2017-09-08] MEDS: Pregabalin 75 MG Capsule 150 MG PO ×2 (08:55→22:13)
[2017-09-08 09:00] VITALS: BP 144/75; PULSE 81; RESP 18; TEMP 36.4; O2SAT 96
--- NOTE | 2017-09-08 10:11 | CASEMGMT ---
Addendum entered by Samara Chavez 09/08/17 10:20: RISHABH placed a call to pt's Banquet Line Cook through [facility] Lola Lacey and left her a message updating her that pt is agreeable to SNF placement and agreeable to TCU at [facility]. SW informed Lola that once pt is medically cleared he will be discharged to TCU at [facility]. SW left call back number for Lola if she were to have any questions regarding discharge plans. Plan: TCU when medically cleared Original Note: Social Work Note SW in to speak with pt to confirm discharge plans. SW informed pt that now he has a wound vac and is most likely going to be discharged on IV antibiotics. Pt states that he would like to go home at discharge with a nurse coming in to do his wound vac and IV antibiotics. This SW informed pt that with Home Health care a nurse will only be out 1-2 times a week and will teach someone to do the wound vac. Per previous notes, pt lives with his brother but his brother is not home a lot due to work. RISHABH informed pt that [facility] is being recommended as a nurse will be available to pt 12/10 to provide care to pt compared to a nurse only coming in 1-2 times a week. Pt states understanding. Pt agreeable to SNF placement. RISHABH explained to pt SNF options including TCU at [facility]. Pt agreeable to TCU referral. Pt denied additional needs or concerns at this time. RISHABH placed a call to Rena in TCU. Rena states that she has a bed available and is able to accept pt. Plan: TCU when medically cleared Samara Chavez PLANT MAINTENANCE ENGINEER, DAY CARE CENTER DIRECTOR
--- NOTE | 2017-09-08 10:19 | NURSING ---
wound photo: left BKA
--- NOTE | 2017-09-08 11:46 | CASEMGMT ---
Social Work Note RISHABH received call from Rena in TCU asking when pt was discharged from [facility] and if pt had any hospitalizations from when he was discharged from [facility] to current hospitalization. RISHABH in to ask pt when he was discharged from [facility] and if he had any other hospitalizations. Pt states that he discharged from [facility] June 19 and that he hasn't had any other hospitalizations then currently. RISHABH placed a call to Rena in TCU to update her of this. Rena states understanding. Plan: TCU when medically cleared Samara Chavez AIR LIFT OPERATOR, TAPE RECORDER REPAIRER
[2017-09-08 12:01] LABS: Bedside Glucose 170 mg/dL (70-110)
--- NOTE | 2017-09-08 13:05 | OP.PCM_ITS ---
Report of Operation Date of Procedure: 09/07/17 Pre-Operative Diagnosis: 1. Left BKA stump diabetic abscess. 2. Nonhealing diabetic ulcer left BKA stump. 3. Left inferior knee diabetic abscess. 4. Diabetes mellitus. Post-Operative Diagnosis: 1. Left BKA stump diabetic abscess hematoma. 2. Nonhealing diabetic ulcer left BKA stump. 3. Left inferior knee diabetic abscess. 4. Diabetes mellitus. Surgery/Procedure Performed:: 1. Surgical preparation left BKA stump with incision and drainage and excisional debridement hematoma abscess and nonhealing diabetic ulcer. 2. Partial ostectomy left tibia for osteomyelitis. 3. Partial secondary closure revision left BKA stump. 4. Incision and drainage diabetic abscess left inferior knee. Description of Surgical Findings:: The patient is a 62 year old M who was recently admitted because of recent falls at home and having difficulty caring for himself at home. He alos was having increasing pain and swelling in his left BKA stump. He has a history of diabetes mellitus. He has a history of MRSA. He was placed on Unasyn. A recent CT scan showed an abscess in his left BKA stump. I was asked to evaluate this patient for surgical options for treatment. Patient was informed of the risks and complications of the procedure including alternatives to surgery. These were discussed with the patient personally. Patient voices understanding and wishes to proceed. I used Mohsen absorbable hemostat. Reference Number - [id number]. Lot Number - [id number]. Expiration - April 18, 2022. Size of defect left BKA stump - 10 x 3 x 1 cm. Size of defect left inferior knee - 3.5 x 0.5 x 1 cm. supervisor extrusion: None Type of Anesthesia:: General Specimen's removed: 1. Diabetic ulcer with abscess hematoma left BKA stump to Pathology and Microbiology. 2. Left BKA stump tibial bone to Pathology and Microbiology. 3. Diabetic abscess left inferior knee to Microbiology. 4. MRSA Wound DNA by PCR. Drains: None. Estimated Blood Loss (mL): 100 ml. Description of Procedure: Patient was taken to OR in supine position and was placed under general anesthesia. His left BKA stump was prepped and draped in the usual fashion. No SCD's were placed for DVT prophylaxis as he has bilateral BKA's. So he is taking chemoprophylaxis. Perioperative antibiotics were given intravenously. Using xylocaine with epinephrine, I infiltrated the stump incision and the nonhealing diabetic ulcer as well as the area in the left inferior knee. After waiting 5 minutes for the anesthetic to take effect, I proceeded with incision through the stump incision down through the muscle into the tibial bone was seen. There was a fluid collection deep by the bone with some bleeding indicative of a hematoma. This was the result of the patient falling a few times recently. Some localized bleeding was controlled with electrocautery and 3-0 Vicryl suture ligatures. The tibial bone edge was irregular that is suspicious for osteomyelitis. A partial ostectomy of the tibia was done with a rongeur. The remaining bone was smoothed out with a rasp. The nonhealing diabetic ulcer on the stump was excised and debrided. Half the soft tissue and half the bone was sent to Pathology for analysis to rule out carcinoma and to evaluate for osteomyelitis. Half the soft tissue and half the bone was sent to Microbiology for culture. A swab was sent for MRSA Wound DNA by PCR. A positive culture may necessitate antibiotic modification. The wound was irrigated with saline. A partial secondary closure revision was done on the BKA stump by approximating the muscle layer to cover the exposed bone. This was done with 2-0 Vicryl figure of eight interrupted sutures. The size of the stump defect is 10 x 3 x 1 cm. There was another painful swollen area on his left inferior knee. A longitudinal incision was made into the subcutaneous tissue. I dissected down to the underlying fascia. The fascia was inflamed yet viable. Some fat necrosis was present. A fluid pocket was noted and drained. Some milky fluid was noted but no pus was seen. Tissue and fluid was sent to Microbiology for culture. A swab was sent for MRSA Wound DNA by PCR. A positive culture may necessitate antibiotic modification. The wound was irrigated with saline. Hemostasis obtained with electrocautery. I then sprayed Mohsen absorbable hemostat into both wounds to help minimize drainage issues. The size of the defect left inferior knee was 3.5 x 0.5 x 1 cm. I then packed both wounds with Mepitel nonadherent dressing followed by gauze and Betadine followed by dry Kerlix gauze and ABD pads and a compression TAD wrap. Patient tolerated the procedure well and was sent to PACU in satisfactory condition. He will be sent back upstairs for continued postop care. The VAC will be placed tomorrow. He will be evaluated for ECF placement. After discharge, he can followup at the Wound Center to assess surgical timing of stump secondary closure revision. Grafts/Implants Used: None. - Complications None. - Admit VTE Documentation VTE Present on Admission: No VTE Mechan Device Prophylaxis: SCD's VTE Pharm Prophylaxis ordered?: Yes Code Visit Surgery Charges CPT - 26148 ICD-10 - M86.9, T87.44, T87.89, E11.622 64161 T87.89, T87.44, E11.622 46780 M86.9, T87.89, T87.44, E11.622 12931 L02.416, E11.622
[2017-09-08 15:05] VITALS: BP 138/75; PULSE 79; RESP 18; TEMP 37.2; O2SAT 96
--- NOTE | 2017-09-08 16:02 | CHAPLAIN ---
Type of Pastoral Visit _x__ Initial Visit ___ Follow-up Visit ___ On-call Visit ___ General Patient Visit ___ Spiritual Assessment ___ Family Conference ___ Bereavement ___ Rapid Response ___ Code Blue ___ Other (describe below) Pastoral Care Referral From _x__ Patient ___ Family ___ Nurse ___ Physician ___ Warehouse Operations Manager ___ Dust Handler ___ Other (describe below) Sacrament/Intervention _x__ Active listening ___ Anointing ___ Latter Day ___ Bereavement ___ Communion _x__ Machelle exploration ___ _x__ Life review _x__ Prayer ___ Reconciliation ___ Sacrament of Sick _x__ Supportive presence ___ Wedding ___ Other (describe below) Pastoral Comments patient explains his coping mechanisms include a positive attitude, prayer to God, family, and humor; pt would like to have more visits in the future during his hospital stay
[2017-09-08] MEDS: Gabapentin 100 MG Capsule 200 MG PO (16:38)
[2017-09-08 16:50] LABS: Bedside Glucose 223 mg/dL (70-110)
[2017-09-08 20:25] VITALS: BP 150/73; PULSE 89; RESP 20; TEMP 36.6; O2SAT 94
[2017-09-08] MEDS: Acetaminophen 325 MG Tablet 650 MG PO (20:37)
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
[2017-09-08] MEDS: traZODone 50 MG Tablet 150 MG PO (22:13)
[2017-09-08] MEDS: Atorvastatin Calcium 20 MG Tablet PO (22:13)
--- NOTE | 2017-09-08 22:26 | PCM.PN.SRG ---
Subjective: Postop #1 Patient is resting comfortably. Discussed with the patient the importance of not removing his dressing since it would increase risk of infection. - Physical Exam General: Alert, Oriented x3 HEENT: PERRLA, EOMI Neck: Supple Skin: Ulcer/ Wound - Left BKA stump wound and left inferior knee wound are stable. No bleeding noted. VAC applied. Neurological: Cranial nerves II-XII grossly intact Psych/Mental Status: Normal Affect, Appropriate Vital Signs Temp Pulse Resp BP Pulse Ox 98 F 89 20 H 150/73 H 94 09/08/17 20:25 09/08/17 20:25 09/08/17 20:25 09/08/17 20:25 09/08/17 20:25 Oxygen Flow Rate (L/min) 2 Oxygen Delivery Method Room Air Weight: 180 lb 5.41 oz Body Mass Index (BMI) 25.1 Finger Stick Blood Glucose 204 Intake and Output for Last 24 Hours 09/06/17 09/07/17 09/08/17 23:59 23:59 23:59 Intake Total 1999 / 1999 2884 / 2884 1886 / 1886 Output Total 4050 / 4050 2625 / 2625 1500 / 1500 Balance -2049 / -2049 259 / 259 386 / 386 Microbiology Past 72 Hours 09/07/17 Unknown Gram Stain - Final Tissue - Other Wound Culture - Preliminary No growth-Final to follow 09/07/17 Unknown Gram Stain - Final Biopsy - Bone Wound Culture - Preliminary No growth-Final to follow 09/07/17 Unknown Gram Stain - Final Tissue - Other Wound Culture - Preliminary No growth-Final to follow Pathology - pending. Laboratory Tests Past 24 Hrs 09/08/17 09/08/17 05:48 05:48 WBC 5.7 RBC 2.96 L Hgb 9.2 L Hct 27.6 L MCV 93.2 MCH 31.1 MCHC 33.3 RDW 12.7 RDW Differential 41.8 Plt Count 366 MPV 9.8 Sodium 138 Potassium 4.1 Chloride 104 Carbon Dioxide 24.0 Anion Gap 10 BUN 22 H Creatinine 1.35 H Estim Creat Clear Calc 60.43 Est GFR (MDRD) Af Amer 69 Est GFR (MDRD) Non-Af 57 L BUN/Creatinine Ratio 16.3 Glucose 157 H Calcium 8.1 L Prealbumin 13.2 L POC Glucose 09/08/17 09/08/17 09/08/17 16:36 11:34 07:03 POC Glucose 223 H 170 H 163 H 09/07/17 22:34 POC Glucose 157 H S. aureus Protein A PCR - positive. MRSA PCR - negative. Medical Necessity - Tobacco Use Smoking Status: Former smoker Tobacco Use: Cigarettes Assessment/Plan 1. Left BKA stump diabetic abscess hematoma. 2. Nonhealing diabetic ulcer left BKA stump. 3. Left inferior knee diabetic abscess. 4. Diabetes mellitus. 5. s/p surgical preparation left BKA stump with incision and drainage and excisional debridement hematoma abscess and nonhealing diabetic ulcer and partial ostectomy left tibia for osteomyelitis and partial secondary closure revision left BKA stump and incision and drainage diabetic abscess left inferior knee. VAC applied. To be changed three times per week at 150 mmHg continuous suction. Discussed with the patient the importance of not removing the dressing. It increases the risk of infection. Operative culture is pending. The S. aureus Protein A PCR was positive. He is currently on Unasyn. Pathology is pending. Prealbumin was 13.2. Encourage nutritional supplementation with protein to help the healing process. The ECF evaluation is in process. After discharge, can followup at the Wound Center. Will decide at that time about the timing of secondary closure revision of the BKA stump.
[2017-09-08 22:31] LABS: Bedside Glucose 273 mg/dL (70-110)
[2017-09-09] MEDS: HYDROmorphone 1 MG/ML Syringe IV ×2 (00:58→06:21)
[2017-09-09] MEDS: 0.9% NaCl Peripheral Flush Adult/Peds IV ×2 (00:58→06:21)
[2017-09-09 02:02] VITALS: BP 129/55; PULSE 82; RESP 20; TEMP 36.6; O2SAT 95
[2017-09-09] MEDS: oxyCODONE 5 MG Tablet 10 MG PO ×4 (03:37→18:52)
[2017-09-09] MEDS: Acetaminophen 325 MG Tablet 650 MG PO ×2 (03:38→21:06)
[2017-09-09] MEDS: diazePAM 5 MG Tablet PO ×3 (06:21→21:07)
[2017-09-09 07:06] LABS: Bedside Glucose 130 mg/dL (70-110)
[2017-09-09 09:00] VITALS: BP 146/75; PULSE 77; RESP 16; TEMP 36.6; O2SAT 95
[2017-09-09] MEDS: Gabapentin 100 MG Capsule 200 MG PO ×2 (09:04→16:52)
[2017-09-09] MEDS: DULoxetine Hcl 60 MG Capsule PO (09:04)
[2017-09-09] MEDS: Enoxaparin 30 MG/0.3 ML Syringe SC (09:05)
[2017-09-09] MEDS: Loratadine 10 MG Tablet PO (09:05)
[2017-09-09] MEDS: amLODIPine 5 MG Tablet PO (09:05)
[2017-09-09] MEDS: Sertraline 50 MG Tablet PO (09:05)
[2017-09-09] MEDS: Donepezil HCl 10 MG Tablet PO (09:05)
[2017-09-09] MEDS: Pregabalin 75 MG Capsule 150 MG PO ×2 (09:08→21:13)
[2017-09-09] MEDS: Insulin Lispro 100 UNIT/ML INSULN.PEN SC (11:28)
[2017-09-09 11:50] LABS: Bedside Glucose 190 mg/dL (70-110)
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
[2017-09-09 14:40] VITALS: BP 148/77; PULSE 80; RESP 18; TEMP 36.5; O2SAT 96
[2017-09-09] MEDS: oxyCODONE HCl Cr 10 MG Tablet PO (16:49)
[2017-09-09 17:15] LABS: Bedside Glucose 114 mg/dL (70-110)
[2017-09-09] MEDS: oxyCODONE 5 MG Tablet 15 MG PO ×2 (19:55→20:08)
[2017-09-09 20:40] VITALS: BP 153/74; PULSE 87; RESP 16; TEMP 37.1; O2SAT 94
[2017-09-09] MEDS: Atorvastatin Calcium 20 MG Tablet PO (21:11)
[2017-09-09] MEDS: traZODone 50 MG Tablet 150 MG PO (21:11)
[2017-09-09 22:00] VITALS: PULSE 87; RESP 16
[2017-09-09 23:26] LABS: Bedside Glucose 127 mg/dL (70-110)
[2017-09-10 03:00] VITALS: BP 130/63; PULSE 78; RESP 16; TEMP 36.6; O2SAT 95
[2017-09-10 04:00] VITALS: PULSE 78; RESP 16
[2017-09-10] MEDS: oxyCODONE 5 MG Tablet 15 MG PO ×5 (04:10→16:12)
[2017-09-10] MEDS: diazePAM 5 MG Tablet PO ×3 (04:15→16:15)
[2017-09-10 06:46] LABS: Bedside Glucose 58 mg/dL (70-110)
--- NOTE | 2017-09-10 06:51 | NURSING ---
blood sugar 58, 2 orange juices given
[2017-09-10] MEDS: Donepezil HCl 10 MG Tablet PO (08:14)
[2017-09-10] MEDS: Loratadine 10 MG Tablet PO (08:15)
[2017-09-10] MEDS: DULoxetine Hcl 60 MG Capsule PO (08:15)
[2017-09-10] MEDS: amLODIPine 5 MG Tablet PO (08:16)
[2017-09-10] MEDS: Sertraline 50 MG Tablet PO (08:16)
[2017-09-10] MEDS: Enoxaparin 30 MG/0.3 ML Syringe SC (08:16)
[2017-09-10] MEDS: Pregabalin 75 MG Capsule 150 MG PO (08:23)
[2017-09-10 09:00] VITALS: BP 149/72; PULSE 84; RESP 16; TEMP 36.5; O2SAT 96
[2017-09-10 10:31] LABS: Bedside Glucose 184 mg/dL (70-110)
--- NOTE | 2017-09-10 10:42 | CASEMGMT ---
Social Work Note SW updated Lucina who is covering for TCU that pt should be discharged today. Lucina states understanding. Plan: Discharge to TCU today for rehabilitation Samara Chavez SPECTACLE TRUER, AUTOCUTTER
[2017-09-10] MEDS: Insulin Lispro 100 UNIT/ML INSULN.PEN SC ×2 (12:19→15:51)
[2017-09-10] MEDS: HYDROmorphone 1 MG/ML Syringe IV (12:21)
[2017-09-10 12:25] LABS: Bedside Glucose 161 mg/dL (70-110)
--- NOTE | 2017-09-10 13:49 | NURSING ---
wound photo: left leg
--- NOTE | 2017-09-10 13:55 | PCM.PN.SRG ---
Subjective: Postop #3 Patient is resting comfortably. VAC changed today. Had some pain with the VAC change. - Physical Exam General: Alert, Oriented x3 HEENT: PERRLA, EOMI Neck: Supple Skin: Ulcer/ Wound - Left BKA stump wound and left inferior knee wound are stable. Some granulation tissue is noted. Minor oozing with the VAC change. Easily controlled with gentle pressure. VAC re-applied. Neurological: Cranial nerves II-XII grossly intact Psych/Mental Status: Normal Affect, Appropriate Vital Signs Temp Pulse Resp BP Pulse Ox 97.7 F L 84 16 149/72 H 96 09/10/17 09:00 09/10/17 09:00 09/10/17 09:00 09/10/17 09:00 09/10/17 09:00 Oxygen Flow Rate (L/min) 2 Oxygen Delivery Method Room Air Weight: 180 lb 5.41 oz Body Mass Index (BMI) 25.1 Finger Stick Blood Glucose 204 Intake and Output for Last 24 Hours 09/08/17 09/09/17 09/10/17 23:59 23:59 23:59 Intake Total 1886 / 1886 3202 / 3202 1175 / 1175 Output Total 1500 / 1500 4350 / 4350 1000 / 1000 Balance 386 / 386 -1148 / -1148 175 / 175 Microbiology Past 72 Hours 09/07/17 Unknown Gram Stain - Final Tissue - Other Wound Culture - Preliminary No growth-Final to follow Anaerobic Culture - Preliminary No growth in 48 hours. 09/07/17 Unknown Gram Stain - Final Biopsy - Bone Wound Culture - Preliminary No growth-Final to follow Anaerobic Culture - Preliminary No growth in 48 hours. 09/07/17 Unknown Gram Stain - Final Tissue - Other Wound Culture - Preliminary No growth-Final to follow Anaerobic Culture - Preliminary No growth in 48 hours. Pathology - pending. POC Glucose 09/10/17 09/10/17 09/10/17 12:16 10:13 06:41 POC Glucose 161 H 184 H 58 L 09/09/17 09/09/17 23:11 16:51 POC Glucose 127 H 114 H Medical Necessity - Tobacco Use Smoking Status: Former smoker Tobacco Use: Cigarettes Assessment/Plan 1. Left BKA stump diabetic abscess hematoma. 2. Nonhealing diabetic ulcer left BKA stump. 3. Left inferior knee diabetic abscess. 4. Diabetes mellitus. 5. s/p surgical preparation left BKA stump with incision and drainage and excisional debridement hematoma abscess and nonhealing diabetic ulcer and partial ostectomy left tibia for osteomyelitis and partial secondary closure revision left BKA stump and incision and drainage diabetic abscess left inferior knee. VAC changed today. To be changed three times per week at 150 mmHg continuous suction. Good granulation tissue noted. Operative culture is negative thus far. The S. aureus Protein A PCR was positive. He is currently on Unasyn. Will currency exchange specialist to po antibiotics. Pathology is pending. Prealbumin was 13.2. Encourage nutritional supplementation with protein to help the healing process. The ECF evaluation is in process. The plan is to go to TCU. After discharge, can followup at the Wound Center. Will decide at that time about the timing of secondary closure revision of the BKA stump.
--- NOTE | 2017-09-10 14:18 | PCM.TXEXTCAR ---
- Diet 1800 calorie, cardiac diet - Routine Orders/Code Status Enema Type: Fleetz Enema Frequency: Daily PRN Suppository Type: Dulcolax 10mg Suppository Frequency: Daily PRN Routine Lab Work: - - BMP and CBC with diff on 09/14 - Wound(s) left stump Wound Type: Surgical Incision Dressing Change: 4x4s/ abd/ kerlix/ mepitel/ oswald left distal stump Wound Type: open surgical wound s/p I&D Dressing Change: KCI wound VAC left anterior stump Wound Type: open surgical wound s/p I&D Dressing Change: KCI wound VAC - Therapies Physical Therapy: He is not to wear the left prosthesis until the wound are completely healed Occupational Therapy: Eval and Treat - Problem/Diagnosis (1) Cellulitis and abscess of left leg Status: Acute Comment: cultures at the time of surgery negative but erythema has resolved Current Visit: Yes (2) Chronic pain syndrome Status: Chronic Current Visit: Yes (3) Chronic renal failure, stage 2 (mild) Status: Chronic Comment: stage 2-3 Current Visit: Yes (4) Depression Status: Chronic Current Visit: Yes (5) Hypertension Status: Chronic Current Visit: Yes (6) Status post bilateral below knee amputation Status: Chronic Current Visit: Yes (7) Traumatic brain injury Status: Chronic Current Visit: Yes (8) Type 2 diabetes mellitus Status: Chronic Comment: poorly controlled Current Visit: Yes - Allergies/Procedures Done in Hospital Allergies/Adverse Reactions: Allergies morphine Adverse Reaction (Verified 09/07/17 11:56) CAUSES FLASH BACKS- PTSD Procedures: Wound Vac placement, - - I&D of LLE abscess on 09/07 - Type of Care/Length of Stay Estimated LOS: Convalescent Care Less Than 30 days Type of Care Needed: Skilled Rehab Potential: Good Prognosis: Good - Additional Orders/Day of Discharge Additional Orders: Please check accuchecks QID, AC and HS for the next week to make adjustments in the insulin.......he does not use a sliding scale at home and with his TBI if we can keep his BS's < 200 with a BID Levemir injection that would be good. Follow up at the wound care center for wound care. H&P will serve as current which was dated: 09/03/17 Day of Discharge: 09/10/17 - Follow Up Care Primary Care Physician: Care Physician,No Primary [NON-STAFF] - Please Follow Up With: wound care center with Dr. Andrew When: 1 week
--- NOTE | 2017-09-10 14:28 | PCM.DC.SUM ---
Discharge Date and Diagnosis - Problem List Patient Problems: Active and Suspected Problems Cellulitis and abscess of left leg (Acute) cultures at the time of surgery negative but erythema has resolved Date of Admission: 09/03/17 Date of Discharge: 09/10/17 - Primary Discharge Diagnosis Active and Suspected Problems Cellulitis and abscess of left leg (Acute) cultures at the time of surgery negative but erythema has resolved - Secondary Discharge Diagnosis Chronic Problems Chronic pain syndrome (Chronic) Chronic renal failure, stage 2 (mild) (Chronic) stage 2-3 Depression (Chronic) Traumatic brain injury (Chronic) Status post bilateral below knee amputation (Chronic) Type 2 diabetes mellitus (Chronic) poorly controlled Hypertension (Chronic) NN anemia- etiology uncertain Hospital Course and Treatment Imaging Results: Clinical Impression(s) from Imaging Studies Lower Extremity CT 09/06/17 14:00 IMPRESSION: Soft tissue abscess at the distal anterior aspect of the tibial amputation without demonstrated bone destruction to indicate osteomyelitis. Electronically Signed: Darius Ayala MD at 16:08 EDT Tel , Service support , Laboratory Results - last 24 hr 09/09/17 09/09/17 09/10/17 16:51 23:11 06:41 POC Glucose 114 H 127 H 58 L 09/10/17 09/10/17 10:13 12:16 POC Glucose 184 H 161 H Microbiology 09/07/17 Unknown Tissue - Other Gram Stain - Final 09/07/17 Unknown Tissue - Other Wound Culture - Preliminary No growth-Final to follow 09/07/17 Unknown Tissue - Other Anaerobic Culture - Preliminary No growth in 48 hours. 09/07/17 Unknown Biopsy - Bone Gram Stain - Final 09/07/17 Unknown Biopsy - Bone Wound Culture - Preliminary No growth-Final to follow 09/07/17 Unknown Biopsy - Bone Anaerobic Culture - Preliminary No growth in 48 hours. 09/07/17 Unknown Tissue - Other Gram Stain - Final 09/07/17 Unknown Tissue - Other Wound Culture - Preliminary No growth-Final to follow 09/07/17 Unknown Tissue - Other Anaerobic Culture - Preliminary No growth in 48 hours. Consultations 09/08/17 06:52 Consult: Onc/Wound/tennis centre manager Routine Comment: Reason for Consult:: wound vac placement Operations: None Procedures: Wound vac placement, - - I&D of LLE abscess on 08/[address] Andrew Summary of Care Provided: The patient is a 62-year-old male with a past medical history of traumatic brain injury related to, bilateral below the knee amputations, diabetes mellitus type 2, renal failure stage II-3, peripheral vascular disease and hypertension who presented to the emergency room on 09/03/2017 complaining of generalized weakness and frequent falls recently. He has not been able to care for himself at home. Vital signs at presentation were unremarkable. Lab work showed a low hemoglobin of 9.8, down from 11.5 on 08/28/2017, sodium of 132 and a BUN of 30 with a creatinine of 1.79, up from 1.26 on 08/28/2017. He complained of possible cellulitis in his left stump at admission but the admitting physician did not feel he had cellulitis because there was no fever and the white blood cell count was normal. Later on physical exam there was an area distal to the knee on the left lower extremity that was swollen, painful to touch and somewhat warm to touch. He had recently, 2 weeks prior to admission, received a new prosthesis for the left leg. A CT scan of the left stump was obtained and showed soft tissue abscess at the distal anterior aspect of the tibial amputation without demonstrated bone destruction to indicate osteomyelitis. He was started on Unasyn. A PCR on the wound at the time of surgery was + for MSSA. He was taken to surgery on 09/[address] Andrew for incision and drainage. He had a hematoma that was evacuated and the incision was opened on the distal stump and drained. A wound vac was placed the following day. The wound cultures had no growth and the bone biopsy did not show evidence of cellulitis. With adjustments in the insulin and a calorie controlled diet the Blood sugars have improved significantly and in fact on the day of DC the AM BS was 58. The HS Levemir was decreased from 18 to 14. He was discharged to TCU for ongoing wound care and rehab. He will not be able to wear the prosthesis until the wound is completely healed. He will continue Augmentin 875 mg BID for 5 more days to complete 10 days of antibiotics. He will follow up with Dr. Andrew in the wound care clinic and Dr. Andrew will determine when to close the wound. Home Medications: Medications to take at Discharge Amlodipine [Norvasc] 5 mg PO DAILY 09/03/17 Atorvastatin Calcium 20 mg PO QHS 09/03/17 Donepezil HCl 10 mg PO DAILY 09/03/17 Duloxetine HCl 60 mg PO DAILY 09/03/17 Fluticasone/Salmeterol [Advair 100-50 Diskus] 1 each IH BID 09/03/17 Loratadine 10 mg PO DAILY 09/03/17 Pregabalin [Lyrica] 150 mg PO BID 09/03/17 Trazodone HCl 150 mg PO QHS 09/03/17 Valsartan [Diovan] 320 mg PO DAILY 09/03/17 Amlodipine [Norvasc] 5 mg PO DAILY tablet 09/10/17 Amoxicillin/Potassium Clav [Augmentin 875-125 Tablet] 1 each PO BID #11 tablet 09/10/17 Insulin Detemir [Levemir FlexPen] 14 units SC QHS #1 insuln.pen 09/10/17 Insulin Glargine,Hum.rec.anlog [Lantus] 14 unit SQ QHS #0 09/10/17 Oxycodone [Oxyir] 15 mg PO Q4H PRN PRN #1 tablet 09/10/17 Valsartan [Diovan] 320 mg PO DAILY tablet 09/10/17 Following Prescrptions Were Given to Patient: Amoxicillin/Potassium Clav [Augmentin 875-125 Tablet] 1 each PO BID #11 tablet Primary Care Physician: Care Physician,No Primary [NON-STAFF] - Please Follow Up With: wound care center with Dr. Andrew When: 1 week Disposition: [facility] - Transitional care unit Minutes spent on discharge:: 40 Patient Condition:: Good Medical Necessity - Tobacco Use Smoking Status: Former smoker Tobacco Use: Cigarettes Meaningful Use Info Meaningful Use Diagnoses (Choose all that apply): None applicable Code Visit Inpatient E&M: 27703 Disch Hosp
[2017-09-10 15:00] VITALS: BP 139/72; PULSE 78; RESP 16; TEMP 36.6; O2SAT 98
[2017-09-10 16:01] LABS: Bedside Glucose 156 mg/dL (70-110)
== END 2017-09-10 16:25 | disposition skilled nursing facility (03) | DRG 464 ==
LOC: ED 15:48 → MS3 16:13
PROVIDERS: Internal Medicine; Surgery; Admitting Provider Hospitalist; Emergency Provider Emergency Medicine; Visit Provider Internal Medicine
PROC: 0J9P0ZZ Drainage of Left Lower Leg Subcutaneous Tissue and Fascia, Open Approach (ICD-10-PCS; principal; 2017-09-07 07:20)
DX: T87.44 Infection of amputation stump, left lower extremity (principal); L02.416 Cutaneous abscess of left lower limb; L03.116 Cellulitis of left lower limb; R26.9 Unspecified abnormalities of gait and mobility; R29.6 Repeated falls; S80.12XA Contusion of left lower leg, initial encounter; Z87.820 Personal history of traumatic brain injury; I12.9 Hypertensive chronic kidney disease with stage 1 through stage 4 chronic kidney disease, or unspecified chronic kidney disease; E11.22 Type 2 diabetes mellitus with diabetic chronic kidney disease; E11.65 Type 2 diabetes mellitus with hyperglycemia; N18.3 Chronic kidney disease, stage 3 (moderate); Z87.891 Personal history of nicotine dependence; Z79.4 Long term (current) use of insulin; G89.4 Chronic pain syndrome; F32.9 Major depressive disorder, single episode, unspecified; Z89.512 Acquired absence of left leg below knee; Z89.511 Acquired absence of right leg below knee; D64.9 Anemia, unspecified
CPT/HCPCS: 36415; 73701; 80048; 80053; 81001; 82962; 83036; 83735; 84100; 84134; 85025; 85027; 85652; 86140; 87070; 87075; 87102; 87205; 87206; 87640; 88304; 88305; 88311; 93005; 97162; 97165; 99285; J7030; Q9967; A4216; J0295

== ENCOUNTER 2017-09-10 16:50 | Inpatient (IN) | payer MEDICARE, MEDICAID, SELFPAY ==
[2017-09-10 18:07] VITALS: BP 150/45; PULSE 68; RESP 20; TEMP 37.1; O2SAT 100; BMI 25.7; BMI 25.8
--- NOTE | 2017-09-10 18:08 | NURSING ---
Patient admitted to room 6 from PCU via bed. Patient oriented to room and call light system explained.
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
--- NOTE | 2017-09-10 21:06 | NURSING ---
Code status discussed with pt at this time, wishes to be DNRCC. HERSON Mullins in room at this time.
[2017-09-10 21:11] LABS: Bedside Glucose 308 mg/dL (70-110)
[2017-09-10] MEDS: traZODone 50 MG Tablet 150 MG PO (21:13)
[2017-09-10] MEDS: Atorvastatin Calcium 20 MG Tablet PO (21:13)
[2017-09-10] MEDS: Donepezil HCl 10 MG Tablet PO (21:14)
[2017-09-10] MEDS: oxyCODONE 5 MG Tablet 15 MG PO (22:39)
[2017-09-11] MEDS: oxyCODONE 5 MG Tablet 15 MG PO ×4 (03:49→21:52)
--- NOTE | 2017-09-11 04:01 | NURSING ---
Addendum entered by Gabbie Shields 09/11/17 04:09: Dr Horn notified, N.O. for Tums. Original Note: Pt c/o indigestion this morning. This RN entered room along with Susanna BAINS to offer saltine crackers to settle stomach. Pt took saltine packets and proceeded to throw them into his nearby trash can. Pt insistent on phoning Dr Horn for Tums. Pt states I don't care if he makes two million dollars, I am paying the bill here. I know what I need. This is supposed to be a place of healing. This isn't an option, call the doctor.
[2017-09-11] MEDS: Calcium Carbonate 500 MG Tablet 1000 MG PO (04:38)
[2017-09-11] MEDS: Amox/Clavulanate 875 MG Tablet PO ×2 (05:34→17:41)
[2017-09-11] MEDS: Menthol/Lanolin/Calamine/Znox 113 GM Tube 1 APPLIC TOPICAL ×2 (05:36→17:41)
[2017-09-11] MEDS: DULoxetine Hcl 60 MG Capsule PO (05:37)
[2017-09-11] MEDS: Fluticasone/Salmeterol 232-14 Inhaler 1 PUFF IH ×2 (05:37→17:41)
[2017-09-11] MEDS: Loratadine 10 MG Tablet PO (05:37)
[2017-09-11] MEDS: Enoxaparin 40 MG/0.4 ML Syringe SC (05:41)
[2017-09-11] MEDS: Pregabalin 75 MG Capsule 150 MG PO ×2 (05:43→17:40)
[2017-09-11] MEDS: Polyethylene Glycol 3350 17 GM PACKET PO (05:45)
[2017-09-11] MEDS: Senna/Docusate Sodium 1 Tablet 2 TABLET PO ×2 (05:45→17:41)
[2017-09-11] MEDS: amLODIPine 5 MG Tablet PO (05:45)
[2017-09-11 05:48] VITALS: BP 147/80; PULSE 84
[2017-09-11 06:55] LABS: Bedside Glucose 188 mg/dL (70-110)
--- NOTE | 2017-09-11 07:30 | NURSING ---
pt had large emesis per bobbin sorter. when this nurse arrived to room pt denies anymore nausea. will monitor.
[2017-09-11 11:16] LABS: Bedside Glucose 175 mg/dL (70-110)
[2017-09-11] MEDS: Tuberculin,Purif.prot.deriv. 50 TU/ML Vial 5 ML ID (12:56)
[2017-09-11 15:37] VITALS: BP 157/75; PULSE 64; RESP 16; TEMP 35.3; O2SAT 93
[2017-09-11 17:00] LABS: Bedside Glucose 204 mg/dL (70-110)
[2017-09-11] MEDS: diazePAM 5 MG Tablet PO (17:39)
[2017-09-11] MEDS: 0.9% NaCl Peripheral Flush Adult/Peds IV (17:42)
[2017-09-11 21:11] LABS: Bedside Glucose 289 mg/dL (70-110)
[2017-09-11 21:30] VITALS: BP 127/69; PULSE 78; RESP 18; TEMP 36.4; O2SAT 95
[2017-09-11] MEDS: Donepezil HCl 10 MG Tablet PO (21:34)
[2017-09-11] MEDS: traZODone 50 MG Tablet 150 MG PO (21:34)
[2017-09-11] MEDS: Atorvastatin Calcium 20 MG Tablet PO (21:35)
[2017-09-12] MEDS: oxyCODONE 5 MG Tablet 15 MG PO ×3 (03:08→22:51)
[2017-09-12] MEDS: Enoxaparin 40 MG/0.4 ML Syringe SC (06:40)
[2017-09-12] MEDS: Loratadine 10 MG Tablet PO (06:41)
[2017-09-12] MEDS: Polyethylene Glycol 3350 17 GM PACKET PO (06:41)
[2017-09-12] MEDS: DULoxetine Hcl 60 MG Capsule PO (06:41)
[2017-09-12] MEDS: Amox/Clavulanate 875 MG Tablet PO ×2 (06:41→17:48)
[2017-09-12] MEDS: amLODIPine 5 MG Tablet PO (06:41)
[2017-09-12] MEDS: Senna/Docusate Sodium 1 Tablet 2 TABLET PO ×2 (06:41→17:48)
[2017-09-12] MEDS: Menthol/Lanolin/Calamine/Znox 113 GM Tube 1 APPLIC TOPICAL ×2 (06:41→17:51)
[2017-09-12] MEDS: Fluticasone/Salmeterol 232-14 Inhaler 1 PUFF IH ×2 (06:42→17:48)
[2017-09-12] MEDS: Pregabalin 75 MG Capsule 150 MG PO ×2 (06:44→17:48)
--- NOTE | 2017-09-12 06:59 | NURSING ---
staff in to given am medication and pt questioning staff when he was getting his pain medication and the valium . pt had just received 150mg of lyrica and was wanting to get valium, staff suggested that he take it after breakfast because it would make him too sedated with the lyrica , pt stated that would be nice. pt encouraged to take oxyir later. rn made aware of pt comments
[2017-09-12 07:11] LABS: Bedside Glucose 216 mg/dL (70-110)
[2017-09-12] MEDS: diazePAM 5 MG Tablet PO ×3 (08:10→18:37)
[2017-09-12 11:26] LABS: Bedside Glucose 214 mg/dL (70-110)
--- NOTE | 2017-09-12 12:10 | NURSING ---
pt c/o about cardiac/low cholesterol diet, states he does not have heart issues. Notified percussion instructor, ordered changed to vinny anderson.
[2017-09-12] MEDS: 0.9% NaCl Peripheral Flush Adult/Peds IV (12:24)
[2017-09-12 16:00] VITALS: BP 140/78; PULSE 86; RESP 18; TEMP 36.3; O2SAT 97
[2017-09-12 17:06] LABS: Bedside Glucose 229 mg/dL (70-110)
--- NOTE | 2017-09-12 18:12 | NURSING ---
Pt asking for valum repeatedly, patient can barley keep his eyes open and is slurring his words. Pt has stated he just wants to stay sedated. Alana MERIDA aware will continue to monitor
[2017-09-12 21:10] LABS: Bedside Glucose 340 mg/dL (70-110)
[2017-09-12] MEDS: Atorvastatin Calcium 20 MG Tablet PO (22:32)
[2017-09-12] MEDS: traZODone 50 MG Tablet 150 MG PO (22:32)
[2017-09-12] MEDS: Donepezil HCl 10 MG Tablet PO (22:32)
[2017-09-12 22:39] VITALS: RESP 18
[2017-09-13 06:09] VITALS: BP 133/71; PULSE 76
[2017-09-13] MEDS: Enoxaparin 40 MG/0.4 ML Syringe SC (06:12)
[2017-09-13] MEDS: Loratadine 10 MG Tablet PO (06:13)
[2017-09-13] MEDS: Pregabalin 75 MG Capsule 150 MG PO ×2 (06:13→17:24)
[2017-09-13] MEDS: amLODIPine 5 MG Tablet PO (06:13)
[2017-09-13] MEDS: DULoxetine Hcl 60 MG Capsule PO (06:13)
[2017-09-13] MEDS: Amox/Clavulanate 875 MG Tablet PO ×2 (06:13→17:21)
[2017-09-13] MEDS: Fluticasone/Salmeterol 232-14 Inhaler 1 PUFF IH ×2 (06:14→17:21)
[2017-09-13] MEDS: Menthol/Lanolin/Calamine/Znox 113 GM Tube 1 APPLIC TOPICAL ×2 (06:14→17:22)
[2017-09-13 07:04] LABS: Bedside Glucose 244 mg/dL (70-110)
[2017-09-13] MEDS: oxyCODONE 5 MG Tablet 15 MG PO ×3 (09:49→22:50)
[2017-09-13 11:20] LABS: Bedside Glucose 296 mg/dL (70-110)
[2017-09-13] MEDS: diazePAM 5 MG Tablet PO ×2 (11:42→21:05)
--- NOTE | 2017-09-13 15:00 | NURSING ---
Patient has c/o difficulty eating with standard silverware and cups. Order entered for weighted silverware, scoop plate and cups with lids per OT request.
[2017-09-13 15:40] VITALS: BP 111/62; PULSE 77; RESP 18; TEMP 36.3; O2SAT 98
--- NOTE | 2017-09-13 15:41 | NURSING ---
wound photo: left leg
[2017-09-13 17:01] LABS: Bedside Glucose 346 mg/dL (70-110)
--- NOTE | 2017-09-13 18:31 | NURSING ---
Per valerie Hunt for patient to have SONIA for Wednesday.
[2017-09-13] MEDS: Donepezil HCl 10 MG Tablet PO (21:06)
[2017-09-13] MEDS: traZODone 50 MG Tablet 150 MG PO (21:06)
[2017-09-13] MEDS: Atorvastatin Calcium 20 MG Tablet PO (21:06)
--- NOTE | 2017-09-13 21:10 | NURSING ---
Pt sleepy, in and out of it during conversation asking several times for ir stuff explained he was not due for pain medication for almost two hours, pt dozed off and woken up, asking for valium at this time. Given valium PRN per orders. Pt had to be reminded to swallow pills. Very kind to this nurse but was insistent on receiving PRN medications as often as orders allow whether I'm asleep or not. Assured pt staff would be checking throughout the night and would manage pain/anxiety as orders allow. Pt pleased with this but asked to speak to about having oxyir and valium scheduled. RN aware, continuing to monitor, medicate as needed/orders allow.
[2017-09-13 21:30] LABS: Bedside Glucose 374 mg/dL (70-110)
[2017-09-14] MEDS: oxyCODONE 5 MG Tablet 15 MG PO ×3 (05:20→21:32)
[2017-09-14] MEDS: diazePAM 5 MG Tablet PO ×3 (05:21→23:52)
[2017-09-14] MEDS: amLODIPine 5 MG Tablet PO (05:21)
[2017-09-14] MEDS: Fluticasone/Salmeterol 232-14 Inhaler 1 PUFF IH ×2 (05:22→17:57)
[2017-09-14] MEDS: DULoxetine Hcl 60 MG Capsule PO (05:22)
[2017-09-14] MEDS: Loratadine 10 MG Tablet PO (05:22)
[2017-09-14] MEDS: Menthol/Lanolin/Calamine/Znox 113 GM Tube 1 APPLIC TOPICAL ×2 (05:22→17:57)
[2017-09-14] MEDS: Amox/Clavulanate 875 MG Tablet PO ×2 (05:22→17:57)
[2017-09-14] MEDS: Enoxaparin 40 MG/0.4 ML Syringe SC (05:23)
[2017-09-14] MEDS: Pregabalin 75 MG Capsule 150 MG PO ×2 (05:36→18:01)
[2017-09-14 07:00] LABS: Bedside Glucose 302 mg/dL (70-110)
[2017-09-14] MEDS: Insulin Lispro 100 UNIT/ML INSULN.PEN 10 UNIT SC (08:33)
[2017-09-14 11:46] LABS: Bedside Glucose 185 mg/dL (70-110)
[2017-09-14 15:28] VITALS: BP 132/69; PULSE 83; RESP 16; TEMP 36.2; O2SAT 95
[2017-09-14 17:06] LABS: Bedside Glucose 255 mg/dL (70-110)
[2017-09-14] MEDS: Senna/Docusate Sodium 1 Tablet 2 TABLET PO (17:59)
[2017-09-14 21:11] LABS: Bedside Glucose 289 mg/dL (70-110)
[2017-09-14] MEDS: traZODone 50 MG Tablet 150 MG PO (21:33)
[2017-09-14] MEDS: Donepezil HCl 10 MG Tablet PO (21:33)
[2017-09-14] MEDS: Atorvastatin Calcium 20 MG Tablet PO (21:33)
--- NOTE | 2017-09-14 21:34 | NURSING ---
Pt drowsy, but asking for prn oxyir 15mg for all over pain rating 8/10. Given oxyir and repositioned for comfort, continuing to monitor.
[2017-09-15] MEDS: oxyCODONE 5 MG Tablet 15 MG PO ×4 (01:32→23:34)
[2017-09-15] MEDS: diazePAM 5 MG Tablet PO ×2 (06:02→23:34)
[2017-09-15] MEDS: amLODIPine 5 MG Tablet PO (06:03)
[2017-09-15] MEDS: Senna/Docusate Sodium 1 Tablet 2 TABLET PO (06:03)
[2017-09-15] MEDS: Enoxaparin 40 MG/0.4 ML Syringe SC (06:04)
[2017-09-15] MEDS: Menthol/Lanolin/Calamine/Znox 113 GM Tube 1 APPLIC TOPICAL ×2 (06:07→17:31)
[2017-09-15] MEDS: Fluticasone/Salmeterol 232-14 Inhaler 1 PUFF IH ×2 (06:07→17:28)
[2017-09-15] MEDS: Amox/Clavulanate 875 MG Tablet PO ×2 (06:07→17:28)
[2017-09-15] MEDS: DULoxetine Hcl 60 MG Capsule PO (06:07)
[2017-09-15] MEDS: Loratadine 10 MG Tablet PO (06:07)
[2017-09-15] MEDS: Pregabalin 75 MG Capsule 150 MG PO ×2 (06:14→17:29)
--- NOTE | 2017-09-15 06:15 | NURSING ---
Pt requesting pain medication even while visibly drowsy and needing verbal cues. When awake, pt flinches and appears in pain. Oxyir 15mg given as orders allow. When scanning am dose of scheduled lyrica 150mg, it popped up as allergy to gabapentin and would not allow this nurse to override and administer medication after speaking with pt who insisted he was okay to take. Pharmacy called and spoke to Pancho, explaining this, as pt said I was on gabapentin for over 14 years and it started to upset my stomach. But I've been on lyrica for over 10 years and it helps my pain I'm not allergic to it and you gave it to me yesterday why would it flag now?' agitated. Pancho overrode orders allowing administration, and med was given. Pt pleased with this and how quickly it was resolved stating that was fast thank you After being repositioned pt resting comfortably. RN aware. Continuing to monitor.
[2017-09-15 07:16] LABS: Bedside Glucose 272 mg/dL (70-110)
--- NOTE | 2017-09-15 09:46 | CASEMGMT ---
Plan of care meeting held. Resident present. Resident plans to discharge home with brother at time of discharge with PASSPORT services as well. Resident No discharge date set at this time. Resident plans to continue with further care and treatment on the Transitional Care Unit. Support given. Will continue to follow. Dai HARTLEY, MANAGER [employer]
[2017-09-15 10:00] VITALS: PULSE 84; RESP 16; O2SAT 93
[2017-09-15 11:05] LABS: Bedside Glucose 336 mg/dL (70-110)
[2017-09-15] MEDS: Insulin Lispro 100 UNIT/ML INSULN.PEN 7 UNIT SC ×2 (13:21→17:30)
[2017-09-15 15:37] VITALS: BP 116/62; PULSE 86; RESP 20; TEMP 36.5
[2017-09-15 16:56] LABS: Bedside Glucose 200 mg/dL (70-110)
[2017-09-15 20:56] LABS: Bedside Glucose 275 mg/dL (70-110)
[2017-09-15] MEDS: Atorvastatin Calcium 20 MG Tablet PO (21:07)
[2017-09-15] MEDS: traZODone 50 MG Tablet 150 MG PO (21:07)
[2017-09-15] MEDS: Donepezil HCl 10 MG Tablet PO (21:08)
[2017-09-16] MEDS: Pregabalin 75 MG Capsule 150 MG PO (05:05)
[2017-09-16] MEDS: Senna/Docusate Sodium 1 Tablet 2 TABLET PO ×2 (05:06→16:21)
[2017-09-16] MEDS: amLODIPine 5 MG Tablet PO (05:06)
[2017-09-16] MEDS: Fluticasone/Salmeterol 232-14 Inhaler 1 PUFF IH ×2 (05:06→16:18)
[2017-09-16] MEDS: Loratadine 10 MG Tablet PO (05:06)
[2017-09-16] MEDS: Amox/Clavulanate 875 MG Tablet PO ×2 (05:07→16:18)
[2017-09-16] MEDS: DULoxetine Hcl 60 MG Capsule PO (05:08)
[2017-09-16] MEDS: Enoxaparin 40 MG/0.4 ML Syringe SC (05:11)
[2017-09-16] MEDS: Menthol/Lanolin/Calamine/Znox 113 GM Tube 1 APPLIC TOPICAL ×2 (05:13→17:17)
[2017-09-16 06:55] LABS: Bedside Glucose 189 mg/dL (70-110)
[2017-09-16] MEDS: diazePAM 5 MG Tablet PO ×2 (07:04→16:17)
[2017-09-16] MEDS: oxyCODONE 5 MG Tablet 15 MG PO ×2 (08:39→13:39)
[2017-09-16] MEDS: Insulin Lispro 100 UNIT/ML INSULN.PEN 7 UNIT SC ×3 (08:42→16:19)
[2017-09-16 11:16] LABS: Bedside Glucose 360 mg/dL (70-110)
--- NOTE | 2017-09-16 11:49 | NURSING ---
Notified Dr Andrew of pt requesting to see & speak to him regarding his Lt residual wound. He will be in today or tomorrow to see pt
--- NOTE | 2017-09-16 12:07 | NURSING ---
Pt complaining that staff is keeping himdrugged up and he is to tired to do anything because of the medications. Pt is frequently on the call light asking for his medications. Pt also complaining about the [employer] silverware and plate, he states that its to big and it rolls easy off plate. This nurse Let RN maricarmen know. Pt currently eating lunch.
--- NOTE | 2017-09-16 14:01 | NURSING ---
Pt requesting pain medication at this time, states his pain is 8 out of 10. Pt telling this nurse he is very sleeepy and is not usually like this and he has been on these medications before. Pt states he would like his OXY IR to 10 mg like he takes at home, and he would also like to get rid of the lyrica 150 mg at this time. Alana MERIDA aware will speak with DR. Horn
--- NOTE | 2017-09-16 14:58 | MDS.RN ---
Pain interview for ANTON 09/17/17 completed.
[2017-09-16 16:00] VITALS: BP 128/65; PULSE 79; RESP 18; TEMP 36.4; O2SAT 96
--- NOTE | 2017-09-16 16:29 | NURSING ---
Addendum entered by Alana White 09/16/17 18:05: Pt requesting that lyrica be dc'd and wants his oxyIR decreased from 15mg to 10mg. Dr Horn aware, new orders received. DR mims here to see pt this evening. Original Note: Pt refusing to take lyrica at this time, states it makes him very tired. Pt requested his 5mg of valium. Valium given at this time. Pt has call light within reach and is pleasant at this time.
[2017-09-16 16:56] LABS: Bedside Glucose 310 mg/dL (70-110)
--- NOTE | 2017-09-16 18:30 | PCM.PN.SRG ---
Patient Problems: Active and Suspected Problems Fall (Acute) Subjective: Postop #9 Patient is resting comfortably. - Physical Exam General: Alert, Oriented x3 HEENT: PERRLA, EOMI Skin: Ulcer/ Wound - left knee and BKA stump wounds are stable. Good granulation tissue seen. VAC in place. No evidence of further infection. Neurological: Cranial nerves II-XII grossly intact Psych/Mental Status: Normal Affect, Appropriate Vital Signs Temp Pulse Resp BP Pulse Ox 97.5 F L 79 18 128/65 H 96 09/16/17 16:00 09/16/17 16:00 09/16/17 16:00 09/16/17 16:00 09/16/17 16:00 Oxygen Delivery Method Room Air Weight: 185 lb 0.014 oz Body Mass Index (BMI) 25.7 Finger Stick Blood Glucose 204 Intake and Output for Last 24 Hours 09/14/17 09/15/17 09/16/17 23:59 23:59 23:59 Intake Total 1235 / 1235 1080 / 1080 480 / 480 Output Total 450 / 450 550 / 550 1325 / 1325 Balance 785 / 785 530 / 530 -845 / -845 POC Glucose 09/16/17 09/16/17 09/16/17 16:49 11:07 06:34 POC Glucose 310 H 360 H 189 H 09/15/17 20:49 POC Glucose 275 H Pathology - Negative for osteomyelitis. Operative culture - Negative. Medical Necessity - Tobacco Use Smoking Status: Former smoker Tobacco Use: Non-smoker Assessment/Plan All Active Problems Cellulitis and abscess of left leg (Acute) Fall (Acute) 1. Left BKA stump diabetic abscess hematoma. 2. Nonhealing diabetic ulcer left BKA stump. 3. Left inferior knee diabetic abscess. 4. Diabetes mellitus. 5. s/p surgical preparation left BKA stump with incision and drainage and excisional debridement hematoma abscess and nonhealing diabetic ulcer and partial ostectomy left tibia for osteomyelitis and partial secondary closure revision left BKA stump and incision and drainage diabetic abscess left inferior knee. Operative culture was negative. He is finishing the Augmentin. Pathology was negative for osteomyelitis. Continue wound care with the VAC. Encourage nutritional supplementation with protein to help the healing process. After further improvement in the wound and after more swelling subsides, can consider delayed secondary closure revision of the left BKA stump. After discharge, [facility]up [facility].
[2017-09-16] MEDS: Atorvastatin Calcium 20 MG Tablet PO (19:58)
[2017-09-16] MEDS: traZODone 50 MG Tablet 150 MG PO (19:58)
[2017-09-16] MEDS: Donepezil HCl 10 MG Tablet PO (19:58)
[2017-09-16] MEDS: oxyCODONE 5 MG Tablet 10 MG PO (20:04)
[2017-09-16 21:00] LABS: Bedside Glucose 264 mg/dL (70-110)
[2017-09-16 21:58] VITALS: PULSE 71; RESP 16; O2SAT 92
--- NOTE | 2017-09-16 22:00 | NURSING ---
pt c/o pain in bilateral stomp request pain pill. When this nurse gave pain me pt stated he thought he gets three pill instead of two. Communicated to pt that he asked dr to decrease pain med. He stated, when i communicated that the order was changed today per his request. Pt drowsy at this time stating he thinks that he will have to talk with the dr to see if he can get the order changed again. Pt states he can't sleep when this nurse walk in the rm patient eyes were closed and snoozing. I communicated with pt when i walked in the his rm he was asleep.
[2017-09-17] MEDS: oxyCODONE 5 MG Tablet 10 MG PO ×2 (01:28→06:37)
[2017-09-17] MEDS: diazePAM 5 MG Tablet PO ×4 (04:10→23:08)
[2017-09-17] MEDS: DULoxetine Hcl 60 MG Capsule PO (04:13)
[2017-09-17] MEDS: amLODIPine 5 MG Tablet PO (04:13)
[2017-09-17] MEDS: Senna/Docusate Sodium 1 Tablet 2 TABLET PO ×2 (04:13→17:42)
[2017-09-17] MEDS: Loratadine 10 MG Tablet PO (04:13)
[2017-09-17] MEDS: Menthol/Lanolin/Calamine/Znox 113 GM Tube 1 APPLIC TOPICAL ×2 (04:15→16:53)
[2017-09-17] MEDS: Fluticasone/Salmeterol 232-14 Inhaler 1 PUFF IH ×2 (04:17→16:50)
[2017-09-17] MEDS: Enoxaparin 40 MG/0.4 ML Syringe SC (04:18)
--- NOTE | 2017-09-17 04:20 | NURSING ---
pt requested valium and oxy was only able to get valium bc it was to early to have oxy. pt states he would like for dr to pt lyrica and oxy order back to what it was before changing it. pt also states that he would like to get better and couldn't sleep at all. pt has been sleeping throughout the night until it time for oxy or valium. pt educated on the importance of taking all of these medication around the clock. pt had cellphone in hand when this nurse came in the room to give valium.
[2017-09-17] MEDS: Amox/Clavulanate 875 MG Tablet PO ×2 (06:35→16:44)
[2017-09-17 06:41] LABS: Bedside Glucose 256 mg/dL (70-110)
--- NOTE | 2017-09-17 08:01 | PCM.PN.RX ---
<SuzannaRoberto marvin - Last Filed: 09/17/17 08:01> Progress Note - Pharmacy Subjective: TCU Admission Objective: Allergies gabapentin [From Neurontin] Allergy (Verified 09/14/17 18:27) Other morphine Adverse Reaction (Verified 09/07/17 11:56) CAUSES FLASH BACKS- PTSD Current Medications Generic Name Dose Route Start Last Admin Trade Name Cooperq PRN Reason Stop Dose Admin Acetaminophen 1,000 mg 09/10/17 19:34 Tylenol PO Q8H PRN MILD PAIN (1-3/10) Amlodipine Besylate 5 mg 09/11/17 06:00 09/17/17 04:13 Norvasc PO 5 mg DAILY YULIYA Administration Amoxicillin/Clavulanate Potassium 875 mg 09/11/17 06:00 09/17/17 06:35 Augmentin Tablet PO 09/18/17 23:59 875 mg BID YULIYA Administration Atorvastatin Calcium 20 mg 09/10/17 22:00 09/16/17 19:58 Lipitor PO 20 mg QHS [facility] Administration Bisacodyl 10 mg 09/10/17 18:15 Dulcolax PO DAILY PRN Constipation Calamine/Phenol 1 applic 09/11/17 06:00 09/17/17 04:15 Calmoseptine Ointment TOPICAL 1 applicatio BID [facility] Administration Protocol Calcium Carbonate 1,000 mg 09/11/17 04:11 09/11/17 04:38 Tums PO 1,000 mg Q4H PRN PRN Administration HEARTBURN OR INDIGESTION Diazepam 5 mg 09/12/17 14:00 09/17/17 04:10 Valium PO 5 mg Q6H PRN Administration SPASMS/PTSD Donepezil HCl 10 mg 09/10/17 22:00 09/16/17 19:58 Aricept PO 10 mg QHS [facility] Administration Duloxetine HCl 60 mg 09/11/17 06:00 09/17/17 04:13 Cymbalta PO 60 mg DAILY YULIYA Administration Enoxaparin Sodium 40 mg 09/11/17 06:00 09/17/17 04:18 Lovenox SC 40 mg DAILY@0600 [facility] Administration Insulin Glargine 15 units 09/17/17 06:00 09/17/17 06:36 Lantus (Bkc) SC 15 units BID [facility] Administration Insulin Human Lispro 10 unit 09/17/17 06:45 Humalog Kwnileshpen ([facility]) SC TIDAC YULIYA Loratadine 10 mg 09/11/17 06:00 09/17/17 04:13 Claritin PO 10 mg DAILY YULIYA Administration Nutritional Formula 1 packet 09/16/17 08:00 09/16/17 16:18 Eleuterio - Limestone Flavor PO 1 packet BIDCM YULIYA Administration Oxycodone HCl 10 mg 09/16/17 18:03 09/17/17 06:37 Oxyir PO 10 mg Q4H PRN PRN Administration pain Polyethylene Glycol 17 gm 09/11/17 06:00 09/17/17 04:14 Miralax PO Not Given DAILY YULIYA Fluticasone/Salmeterol 1 puff 09/11/17 06:00 09/17/17 04:17 Fluticasone-Salmeterol 232-14 IH 1 puff Q12 YULIYA Administration Senna/Docusate Sodium 2 tablet 09/11/17 06:00 09/17/17 04:13 Senokot-S, Shilpi-Colace PO 1 tablet BID YULIYA Administration Sodium Chloride 5 - 30 ml 09/11/17 17:29 09/12/17 12:24 IV 10 ml UD PRN Administration SALINE FLUSH Trazodone HCl 150 mg 09/10/17 22:00 09/16/17 19:58 Desyrel PO 150 mg QHS YULIYA Administration Tuberculin PPD 5 tu 09/18/17 10:00 Tubersol, Aplisol, Ppd ID 09/18/17 10:01 X1 ONE Valsartan 320 mg 09/11/17 06:00 09/17/17 04:13 Diovan PO 320 mg DAILY YULIYA Administration Problem List Fall (Acute) Hyperlipidemia (Chronic) Allergic rhinitis (Chronic) Polyneuropathy (Chronic) Insomnia (Chronic) Vital Signs Temp Pulse Resp BP Pulse Ox 97.5 F L 71 16 128/65 H 92 09/16/17 16:00 09/16/17 21:58 09/16/17 21:58 09/16/17 16:00 09/16/17 21:58 Oxygen Delivery Method Room Air Weight: 83.915 kg Body Mass Index (BMI) 25.7 Finger Stick Blood Glucose 204 Assessment/Plan: 1) Pain APAP for mild pain, oxycodone for pain, diazepam for spasms, duloxetine. Continue to monitor daily pain scores, prn medication use. * Overlapping instructions for APAP (mild pain) and oxycodone (pain). Please update with instructions that do not overlap, thank you. 2) HTN Amlodipine, valsartan. Continue to monitor BP, renal function, electrolytes. 3) Pulm Advair inh twice daily, loratadine daily. Continue to monitor for allergy symptoms, for shortness of breath. 4) DM2 Insulin glargine twice daily, aspart before meals. Continue to monitor BGT. 5) HLD Atorvastatin daily. Continue to monitor lipids. 6) ID Amox/clav for stump infection through 09/18/17. Continue to monitor s/s infection. 7) TBI Donepezil at HS. Continue to monitor clinically. 8) Nutrition Eleuterio. Continue to monitor clinically. 9) GI Tums prn. Continue to monitor prn medication use, s/s GI distress. 10) DVT PPx Enoxaparin daily. Continue to monitor s/s bleeding/clot. Psychotropic Medications: 11) Insomnia Trazodone at HS. Continue to monitor for insomnia. Unnecessary Medications: None Bowel Regimen: 12) Senna/s, PEG, prn bisacodyl. Continue to monitor prn medication use, for constipation/diarrhea. Date of Note:: 09/17/17 - Provider Comments Provider responsibility: Provider responsible to enter orders to implement recommendations <Jez Horn Chi - Last Filed: 09/17/17 13:57> Progress Note - Pharmacy Subjective: [] Objective: Allergies gabapentin [From Neurontin] Allergy (Verified 09/14/17 18:27) Other morphine Adverse Reaction (Verified 09/07/17 11:56) CAUSES FLASH BACKS- PTSD Current Medications Generic Name Dose Route Start Last Admin Trade Name Freq PRN Reason Stop Dose Admin Acetaminophen 1,000 mg 09/10/17 19:34 Tylenol PO Q8H PRN MILD PAIN (1-3/10) Amlodipine Besylate 5 mg 09/11/17 06:00 09/17/17 04:13 Norvasc PO 5 mg DAILY YULIYA Administration Amoxicillin/Clavulanate Potassium 875 mg 09/11/17 06:00 09/17/17 06:35 Augmentin Tablet PO 09/18/17 23:59 875 mg BID YULIYA Administration Atorvastatin Calcium 20 mg 09/10/17 22:00 06/28/18 19:58 Lipitor PO 20 mg QHS YULIYA Administration Bisacodyl 10 mg 09/10/17 18:15 Dulcolax PO DAILY PRN Constipation Calamine/Phenol 1 applic 09/11/17 06:00 09/17/17 04:15 Calmoseptine Ointment TOPICAL 1 applicatio BID [facility] Administration Protocol Calcium Carbonate 1,000 mg 09/11/17 04:11 09/11/17 04:38 Tums PO 1,000 mg Q4H PRN PRN Administration HEARTBURN OR INDIGESTION Diazepam 5 mg 09/12/17 14:00 09/17/17 10:51 Valium PO 5 mg Q6H PRN Administration SPASMS/PTSD Donepezil HCl 10 mg 09/10/17 22:00 09/16/17 19:58 Aricept PO 10 mg QHS YULIYA Administration Duloxetine HCl 60 mg 09/11/17 06:00 09/17/17 04:13 Cymbalta PO 60 mg DAILY [facility] Administration Enoxaparin Sodium 40 mg 09/11/17 06:00 09/17/17 04:18 Lovenox SC 40 mg DAILY@0600 [facility] Administration Insulin Glargine 15 units 09/17/17 06:00 09/17/17 06:36 Lantus ([facility]) SC 15 units BID [facility] Administration Insulin Human Lispro 10 unit 09/17/17 06:45 09/17/17 11:54 Humalog Kwikpen ([facility]) SC 10 units TIDAC [facility] Administration Loratadine 10 mg 09/11/17 06:00 09/17/17 04:13 Claritin PO 10 mg DAILY [facility] Administration Nutritional Formula 1 packet 09/16/17 08:00 09/17/17 08:05 Eleuterio - Limestone Flavor PO 1 packet BIDCM [facility] Administration Oxycodone HCl 15 mg 09/17/17 10:27 09/17/17 10:50 Oxyir PO 15 mg Q4H PRN PRN Administration pain Polyethylene Glycol 17 gm 09/11/17 06:00 09/17/17 04:14 Miralax PO Not Given DAILY [facility] Pregabalin 150 mg 09/17/17 10:26 09/17/17 13:14 Lyrica PO 75 mg BID [facility] Administration Fluticasone/Salmeterol 1 puff 09/11/17 06:00 09/17/17 04:17 Fluticasone-Salmeterol 232-14 IH 1 puff Q12 YULIYA Administration Senna/Docusate Sodium 2 tablet 09/11/17 06:00 09/17/17 04:13 Senokot-S, Shilpi-Colace PO 1 tablet BID YULIYA Administration Sodium Chloride 5 - 30 ml 09/11/17 17:29 09/12/17 12:24 IV 10 ml UD PRN Administration SALINE FLUSH Trazodone HCl 150 mg 09/10/17 22:00 09/16/17 19:58 Desyrel PO 150 mg QHS YULIYA Administration Tuberculin PPD 5 tu 09/18/17 10:00 Tubersol, Aplisol, Ppd ID 09/18/17 10:01 X1 ONE Valsartan 320 mg 09/11/17 06:00 09/17/17 04:13 Diovan PO 320 mg DAILY YULIYA Administration Problem List Fall (Acute) Hyperlipidemia (Chronic) Allergic rhinitis (Chronic) Polyneuropathy (Chronic) Insomnia (Chronic) Vital Signs Temp Pulse Resp BP Pulse Ox 97.5 F L 71 16 128/65 H 92 09/16/17 16:00 09/16/17 21:58 09/16/17 21:58 09/16/17 16:00 09/16/17 21:58 Oxygen Delivery Method Room Air Weight: 83.915 kg Body Mass Index (BMI) 25.7 Finger Stick Blood Glucose 204 Assessment/Plan: Psychotropic Medications: Unnecessary Medications: Bowel Regimen: - Provider Comments Provider responsibility: Provider responsible to enter orders to implement recommendations Provider Comments to Recommendations by Pharmacy: Agree
[2017-09-17] MEDS: Insulin Lispro 100 UNIT/ML INSULN.PEN 10 UNIT SC ×3 (08:03→17:37)
--- NOTE | 2017-09-17 08:18 | PHA.CONS_ITS ---
<SuzannaRoberto marvin - Last Filed: 09/17/17 08:01> Progress Note - Pharmacy Subjective: TCU Admission Objective: Allergies gabapentin [From Neurontin] Allergy (Verified 09/14/17 18:27) Other morphine Adverse Reaction (Verified 09/07/17 11:56) CAUSES FLASH BACKS- PTSD Current Medications Generic Name Dose Route Start Last Admin Trade Name Cooperq PRN Reason Stop Dose Admin Acetaminophen 1,000 mg 09/10/17 19:34 Tylenol PO Q8H PRN MILD PAIN (1-3/10) Amlodipine Besylate 5 mg 09/11/17 06:00 09/17/17 04:13 Norvasc PO 5 mg DAILY YULIYA Administration Amoxicillin/Clavulanate Potassium 875 mg 09/11/17 06:00 09/17/17 06:35 Augmentin Tablet PO 09/18/17 23:59 875 mg BID YULIYA Administration Atorvastatin Calcium 20 mg 09/10/17 22:00 09/16/17 19:58 Lipitor PO 20 mg QHS [facility] Administration Bisacodyl 10 mg 09/10/17 18:15 Dulcolax PO DAILY PRN Constipation Calamine/Phenol 1 applic 09/11/17 06:00 09/17/17 04:15 Calmoseptine Ointment TOPICAL 1 applicatio BID [facility] Administration Protocol Calcium Carbonate 1,000 mg 09/11/17 04:11 09/11/17 04:38 Tums PO 1,000 mg Q4H PRN PRN Administration HEARTBURN OR INDIGESTION Diazepam 5 mg 09/12/17 14:00 09/17/17 04:10 Valium PO 5 mg Q6H PRN Administration SPASMS/PTSD Donepezil HCl 10 mg 09/10/17 22:00 09/16/17 19:58 Aricept PO 10 mg QHS [facility] Administration Duloxetine HCl 60 mg 09/11/17 06:00 09/17/17 04:13 Cymbalta PO 60 mg DAILY YULIYA Administration Enoxaparin Sodium 40 mg 09/11/17 06:00 09/17/17 04:18 Lovenox SC 40 mg DAILY@0600 [facility] Administration Insulin Glargine 15 units 09/17/17 06:00 09/17/17 06:36 Lantus (B[facility]) SC 15 units BID [facility] Administration Insulin Human Lispro 10 unit 09/17/17 06:45 Humalog Kwnileshpen (Bkc) SC TIDAC YULIYA Loratadine 10 mg 09/11/17 06:00 09/17/17 04:13 Claritin PO 10 mg DAILY YULIYA Administration Nutritional Formula 1 packet 09/16/17 08:00 09/16/17 16:18 Eleuterio - Twiggs Flavor PO 1 packet BIDCM YULIYA Administration Oxycodone HCl 10 mg 09/16/17 18:03 09/17/17 06:37 Oxyir PO 10 mg Q4H PRN PRN Administration pain Polyethylene Glycol 17 gm 09/11/17 06:00 09/17/17 04:14 Miralax PO Not Given DAILY YULIYA Fluticasone/Salmeterol 1 puff 09/11/17 06:00 09/17/17 04:17 Fluticasone-Salmeterol 232-14 IH 1 puff Q12 YULIYA Administration Senna/Docusate Sodium 2 tablet 09/11/17 06:00 09/17/17 04:13 Senokot-S, Shilpi-Colace PO 1 tablet BID YULIYA Administration Sodium Chloride 5 - 30 ml 09/11/17 17:29 09/12/17 12:24 IV 10 ml UD PRN Administration SALINE FLUSH Trazodone HCl 150 mg 09/10/17 22:00 09/16/17 19:58 Desyrel PO 150 mg QHS YULIYA Administration Tuberculin PPD 5 tu 09/18/17 10:00 Tubersol, Aplisol, Ppd ID 09/18/17 10:01 X1 ONE Valsartan 320 mg 09/11/17 06:00 09/17/17 04:13 Diovan PO 320 mg DAILY YULIYA Administration Problem List Fall (Acute) Hyperlipidemia (Chronic) Allergic rhinitis (Chronic) Polyneuropathy (Chronic) Insomnia (Chronic) Vital Signs Temp Pulse Resp BP Pulse Ox 97.5 F L 71 16 128/65 H 92 09/16/17 16:00 09/16/17 21:58 09/16/17 21:58 09/16/17 16:00 09/16/17 21:58 Oxygen Delivery Method Room Air Weight: 83.915 kg Body Mass Index (BMI) 25.7 Finger Stick Blood Glucose 204 Assessment/Plan: 1) Pain APAP for mild pain, oxycodone for pain, diazepam for spasms, duloxetine. Continue to monitor daily pain scores, prn medication use. * Overlapping instructions for APAP (mild pain) and oxycodone (pain). Please update with instructions that do not overlap, thank you. 2) HTN Amlodipine, valsartan. Continue to monitor BP, renal function, electrolytes. 3) Pulm Advair inh twice daily, loratadine daily. Continue to monitor for allergy symptoms, for shortness of breath. 4) DM2 Insulin glargine twice daily, aspart before meals. Continue to monitor BGT. 5) HLD Atorvastatin daily. Continue to monitor lipids. 6) ID Amox/clav for stump infection through 09/18/17. Continue to monitor s/s infection. 7) TBI Donepezil at HS. Continue to monitor clinically. 8) Nutrition Eleuterio. Continue to monitor clinically. 9) GI Tums prn. Continue to monitor prn medication use, s/s GI distress. 10) DVT PPx Enoxaparin daily. Continue to monitor s/s bleeding/clot. Psychotropic Medications: 11) Insomnia Trazodone at HS. Continue to monitor for insomnia. Unnecessary Medications: None Bowel Regimen: 12) Senna/s, PEG, prn bisacodyl. Continue to monitor prn medication use, for constipation/diarrhea. Date of Note:: 09/17/17 - Provider Comments Provider responsibility: Provider responsible to enter orders to implement recommendations <Jez Horn Chi - Last Filed: 09/17/17 13:57> Progress Note - Pharmacy Subjective: [] Objective: Allergies gabapentin [From Neurontin] Allergy (Verified 09/14/17 18:27) Other morphine Adverse Reaction (Verified 09/07/17 11:56) CAUSES FLASH BACKS- PTSD Current Medications Generic Name Dose Route Start Last Admin Trade Name Freq PRN Reason Stop Dose Admin Acetaminophen 1,000 mg 09/10/17 19:34 Tylenol PO Q8H PRN MILD PAIN (1-3/10) Amlodipine Besylate 5 mg 09/11/17 06:00 09/17/17 04:13 Norvasc PO 5 mg DAILY YULIYA Administration Amoxicillin/Clavulanate Potassium 875 mg 09/11/17 06:00 09/17/17 06:35 Augmentin Tablet PO 09/18/17 23:59 875 mg BID YULIYA Administration Atorvastatin Calcium 20 mg 09/10/17 22:00 06/28/18 19:58 Lipitor PO 20 mg QHS YULIYA Administration Bisacodyl 10 mg 09/10/17 18:15 Dulcolax PO DAILY PRN Constipation Calamine/Phenol 1 applic 09/11/17 06:00 09/17/17 04:15 Calmoseptine Ointment TOPICAL 1 applicatio BID [facility] Administration Protocol Calcium Carbonate 1,000 mg 09/11/17 04:11 09/11/17 04:38 Tums PO 1,000 mg Q4H PRN PRN Administration HEARTBURN OR INDIGESTION Diazepam 5 mg 09/12/17 14:00 09/17/17 10:51 Valium PO 5 mg Q6H PRN Administration SPASMS/PTSD Donepezil HCl 10 mg 09/10/17 22:00 09/16/17 19:58 Aricept PO 10 mg QHS YULIYA Administration Duloxetine HCl 60 mg 09/11/17 06:00 09/17/17 04:13 Cymbalta PO 60 mg DAILY [facility] Administration Enoxaparin Sodium 40 mg 09/11/17 06:00 09/17/17 04:18 Lovenox SC 40 mg DAILY@0600 [facility] Administration Insulin Glargine 15 units 09/17/17 06:00 09/17/17 06:36 Lantus ([facility]) SC 15 units BID [facility] Administration Insulin Human Lispro 10 unit 09/17/17 06:45 09/17/17 11:54 Humalog Kwikpen ([facility]) SC 10 units TIDAC [facility] Administration Loratadine 10 mg 09/11/17 06:00 09/17/17 04:13 Claritin PO 10 mg DAILY [facility] Administration Nutritional Formula 1 packet 09/16/17 08:00 09/17/17 08:05 Eleuterio - Twiggs Flavor PO 1 packet BIDCM [facility] Administration Oxycodone HCl 15 mg 09/17/17 10:27 09/17/17 10:50 Oxyir PO 15 mg Q4H PRN PRN Administration pain Polyethylene Glycol 17 gm 09/11/17 06:00 09/17/17 04:14 Miralax PO Not Given DAILY [facility] Pregabalin 150 mg 09/17/17 10:26 09/17/17 13:14 Lyrica PO 75 mg BID [facility] Administration Fluticasone/Salmeterol 1 puff 09/11/17 06:00 09/17/17 04:17 Fluticasone-Salmeterol 232-14 IH 1 puff Q12 YULIYA Administration Senna/Docusate Sodium 2 tablet 09/11/17 06:00 09/17/17 04:13 Senokot-S, Shilpi-Colace PO 1 tablet BID YULIYA Administration Sodium Chloride 5 - 30 ml 09/11/17 17:29 09/12/17 12:24 IV 10 ml UD PRN Administration SALINE FLUSH Trazodone HCl 150 mg 09/10/17 22:00 09/16/17 19:58 Desyrel PO 150 mg QHS YULIYA Administration Tuberculin PPD 5 tu 09/18/17 10:00 Tubersol, Aplisol, Ppd ID 09/18/17 10:01 X1 ONE Valsartan 320 mg 09/11/17 06:00 09/17/17 04:13 Diovan PO 320 mg DAILY YULIYA Administration Problem List Fall (Acute) Hyperlipidemia (Chronic) Allergic rhinitis (Chronic) Polyneuropathy (Chronic) Insomnia (Chronic) Vital Signs Temp Pulse Resp BP Pulse Ox 97.5 F L 71 16 128/65 H 92 09/16/17 16:00 09/16/17 21:58 09/16/17 21:58 09/16/17 16:00 09/16/17 21:58 Oxygen Delivery Method Room Air Weight: 83.915 kg Body Mass Index (BMI) 25.7 Finger Stick Blood Glucose 204 Assessment/Plan: Psychotropic Medications: Unnecessary Medications: Bowel Regimen: - Provider Comments Provider responsibility: Provider responsible to enter orders to implement recommendations Provider Comments to Recommendations by Pharmacy: Agree
[2017-09-17] MEDS: oxyCODONE 5 MG Tablet 15 MG PO ×3 (10:50→19:36)
[2017-09-17 11:30] LABS: Bedside Glucose 174 mg/dL (70-110)
--- NOTE | 2017-09-17 11:41 | CASEMGMT ---
Brief interview for mental status (BIMS) and resident mood interview (PHQ-9) completed on this day. BIMS score 1515. PHQ-9 score 06/15
[2017-09-17] MEDS: Pregabalin 75 MG Capsule 150 MG PO ×2 (13:14→21:55)
[2017-09-17 15:57] VITALS: BP 105/58; PULSE 85; RESP 18; TEMP 36.9; O2SAT 98
[2017-09-17 17:06] LABS: Bedside Glucose 152 mg/dL (70-110)
[2017-09-17 21:06] LABS: Bedside Glucose 92 mg/dL (70-110)
[2017-09-17] MEDS: Atorvastatin Calcium 20 MG Tablet PO (21:54)
[2017-09-17] MEDS: traZODone 50 MG Tablet 150 MG PO (21:55)
[2017-09-17] MEDS: Donepezil HCl 10 MG Tablet PO (21:55)
[2017-09-17 22:49] VITALS: RESP 18
[2017-09-18] MEDS: Acetaminophen 500 MG Tablet 1000 MG PO (04:09)
[2017-09-18 06:19] VITALS: BP 119/61; PULSE 80
[2017-09-18] MEDS: Fluticasone/Salmeterol 232-14 Inhaler 1 PUFF IH ×2 (06:30→16:25)
[2017-09-18] MEDS: Amox/Clavulanate 875 MG Tablet PO ×2 (06:31→16:26)
[2017-09-18] MEDS: Senna/Docusate Sodium 1 Tablet 2 TABLET PO ×2 (06:32→16:26)
[2017-09-18] MEDS: Polyethylene Glycol 3350 17 GM PACKET PO (06:32)
[2017-09-18] MEDS: amLODIPine 5 MG Tablet PO (06:32)
[2017-09-18] MEDS: Enoxaparin 40 MG/0.4 ML Syringe SC (06:32)
[2017-09-18] MEDS: DULoxetine Hcl 60 MG Capsule PO (06:32)
[2017-09-18] MEDS: Loratadine 10 MG Tablet PO (06:32)
[2017-09-18] MEDS: Menthol/Lanolin/Calamine/Znox 113 GM Tube 1 APPLIC TOPICAL ×2 (06:33→16:34)
[2017-09-18 06:45] LABS: Bedside Glucose 195 mg/dL (70-110)
--- NOTE | 2017-09-18 06:56 | NURSING ---
T/O THE NIGHT THIS RN NOTED PATIENT BEING VERY LETHARGIC AND WHEN AWAKE WOULD ASK FOR PAIN MEDS, EVEN WHEN NOT DUE, PATIENT REMINDED FREQUENTLY. WHEN AWAKE PATIENT SEEMS DISORIENTED/ CONFUSED/ AND FORGETFUL. THIS AM SHADIA HELD D/T LETHARGY. CHARGE NURSE AWARE OF DECISION MADE BY THIS RN.
[2017-09-18 08:24] LABS: Absolute Lymphocyte Count 1.55 X10^3/ul (0.83-4.51); Absolute Neutrophil Count 2.7 X10^3/uL (2.0-7.7); Basophil# 0.02 X10^3/uL; Basophil% 0.4 % (0-1); Eosinophil# 0.14 X10^3/uL; Hematocrit 30.1 % (40-54); Hemoglobin 9.8 g/dl (13.0-16.5); Lymphocyte # 1.55 X10^3/ul (4.0); Lymphocyte % 33.4 % (19-41); Mean Corp Hgb Conc 32.6 g/gl (32-36); Mean Corpuscular Hgb 29.8 pg (27.0-32.0); Mean Corpuscular Volume 91.5 fL (80-94); Mean Platelet Vol. 9.6 fl (6.2-12.0); Monocyte# 0.26 X10^3/uL; Monocyte% 5.6 % (0-10); Neutrophil # 2.67 X10^3/uL (2.7-7.7); Neutrophil % 57.6 % (47-70); POSITIVE COUNT NO; POSITIVE DIFFERENTIAL NO; POSITIVE MORPHOLOGY NO; Platelet Count 513 K/mm3 (150-450); RBC Distribution Width CV 12.8 % (11.6-14.6); RBC Distribution Width SD 42.9 fl (35.1-43.9); Red Blood Count 3.29 M/mm3 (4.6-6.2); White Blood Count 4.6 K/mm3 (4.4-11.0)
[2017-09-18 08:35] LABS: Anion Gap 6 (5-15); BUN 33 mg/dL (7-18); Calcium,Total 8.9 mg/dL (8.5-10.1); Chloride 103 mmol/L (98-107); Creatinine, Serum 1.22 mg/dL (0.70-1.30); EST Glomerular Filtration Rate 64 mL/min (>60); Est Glom Filt Rate - Afr Amer 77 mL/min (>60); Estimated Creatinine Clearance 66.86 ml/min; Glucose 202 mg/dL (74-106); Potassium 4.3 mmol/L (3.5-5.1); Sodium Level 137 mmol/L (136-145)
[2017-09-18] MEDS: Insulin Lispro 100 UNIT/ML INSULN.PEN 10 UNIT SC ×3 (10:36→16:50)
[2017-09-18] MEDS: oxyCODONE 5 MG Tablet 15 MG PO ×3 (10:52→15:50)
[2017-09-18] MEDS: Tuberculin,Purif.prot.deriv. 50 TU/ML Vial 5 ML ID (10:52)
[2017-09-18 11:51] LABS: Bedside Glucose 323 mg/dL (70-110)
[2017-09-18 15:12] VITALS: BP 124/66; PULSE 80; RESP 16; TEMP 35.9; O2SAT 96
[2017-09-18] MEDS: Pregabalin 75 MG Capsule 150 MG PO (16:31)
[2017-09-18 16:45] LABS: Bedside Glucose 348 mg/dL (70-110)
[2017-09-18] MEDS: traZODone 50 MG Tablet 150 MG PO (20:15)
[2017-09-18] MEDS: Donepezil HCl 10 MG Tablet PO (20:16)
[2017-09-18] MEDS: Atorvastatin Calcium 20 MG Tablet PO (20:16)
[2017-09-18] MEDS: diazePAM 5 MG Tablet PO (20:22)
[2017-09-18 20:23] VITALS: PULSE 86; RESP 18; O2SAT 92
[2017-09-18 21:11] LABS: Bedside Glucose 253 mg/dL (70-110)
[2017-09-19] MEDS: Loratadine 10 MG Tablet PO (06:38)
[2017-09-19] MEDS: DULoxetine Hcl 60 MG Capsule PO (06:38)
[2017-09-19] MEDS: amLODIPine 5 MG Tablet PO (06:38)
[2017-09-19] MEDS: Senna/Docusate Sodium 1 Tablet 2 TABLET PO ×2 (06:38→17:31)
[2017-09-19] MEDS: Menthol/Lanolin/Calamine/Znox 113 GM Tube 1 APPLIC TOPICAL ×2 (06:39→17:33)
[2017-09-19] MEDS: Fluticasone/Salmeterol 232-14 Inhaler 1 PUFF IH ×2 (06:40→17:32)
[2017-09-19] MEDS: Polyethylene Glycol 3350 17 GM PACKET PO (06:40)
[2017-09-19] MEDS: Enoxaparin 40 MG/0.4 ML Syringe SC (06:42)
[2017-09-19 07:06] LABS: Bedside Glucose 241 mg/dL (70-110)
[2017-09-19] MEDS: Pregabalin 75 MG Capsule 150 MG PO ×2 (07:48→17:31)
[2017-09-19] MEDS: Insulin Lispro 100 UNIT/ML INSULN.PEN 10 UNIT SC ×2 (08:46→12:29)
[2017-09-19] MEDS: oxyCODONE 5 MG Tablet 15 MG PO ×3 (10:25→21:39)
[2017-09-19 11:46] LABS: Bedside Glucose 318 mg/dL (70-110)
[2017-09-19 16:00] VITALS: BP 110/58; PULSE 83; RESP 16; TEMP 36.9; O2SAT 98
[2017-09-19 17:16] LABS: Bedside Glucose 98 mg/dL (70-110)
[2017-09-19] MEDS: Insulin Lispro 100 UNIT/ML INSULN.PEN 13 UNIT SC (17:33)
[2017-09-19] MEDS: diazePAM 5 MG Tablet PO (17:39)
[2017-09-19 20:40] VITALS: PULSE 82; RESP 18; O2SAT 93
[2017-09-19 21:00] LABS: Bedside Glucose 124 mg/dL (70-110)
[2017-09-19] MEDS: traZODone 50 MG Tablet 150 MG PO (21:39)
[2017-09-19] MEDS: Donepezil HCl 10 MG Tablet PO (21:39)
[2017-09-19] MEDS: Atorvastatin Calcium 20 MG Tablet PO (21:45)
--- NOTE | 2017-09-19 23:00 | NURSING ---
pt c/o of pain he states that he thinks he pulled a muscle VS 132/65, R 16, P85,Spo2 98 RA, Temp 98.1. this nurse went in and patient didn't mention muscle pull to this nurse, but did request pain medication for pain in his left stomp. rates pain level a 8 out of 10 given prn oxyir for pain .has L leg elevated on a pillow at this time.
[2017-09-20] MEDS: diazePAM 5 MG Tablet PO ×3 (01:00→18:31)
[2017-09-20] MEDS: Menthol/Lanolin/Calamine/Znox 113 GM Tube 1 APPLIC TOPICAL ×2 (04:35→18:20)
[2017-09-20] MEDS: Pregabalin 75 MG Capsule 150 MG PO ×2 (04:37→18:25)
[2017-09-20] MEDS: Senna/Docusate Sodium 1 Tablet 2 TABLET PO (04:38)
[2017-09-20] MEDS: DULoxetine Hcl 60 MG Capsule PO (04:39)
[2017-09-20] MEDS: Loratadine 10 MG Tablet PO (04:39)
[2017-09-20] MEDS: amLODIPine 5 MG Tablet PO (04:42)
[2017-09-20] MEDS: Fluticasone/Salmeterol 232-14 Inhaler 1 PUFF IH ×2 (04:45→18:19)
[2017-09-20] MEDS: Enoxaparin 40 MG/0.4 ML Syringe SC (04:46)
[2017-09-20 04:51] VITALS: PULSE 81; RESP 16; O2SAT 99
[2017-09-20 07:01] LABS: Bedside Glucose 102 mg/dL (70-110)
[2017-09-20 11:21] LABS: Bedside Glucose 202 mg/dL (70-110)
[2017-09-20] MEDS: oxyCODONE 5 MG Tablet 15 MG PO ×3 (11:23→22:19)
--- NOTE | 2017-09-20 11:33 | NURSING ---
Addendum entered by Emilee Ludwig 09/20/17 11:35: offered to call hospital inside sales trainer for support, pt denies wanting that at this time. Original Note: pt with increased anxiety at this time, tearful--patients daughter found out her baby has passed (daughter was ). SONIA ordered, social welfare clerk attempting to set up transport to hospital to see daughter. valium given per pt request to help with anxiety/nerves. will monitor.
--- NOTE | 2017-09-20 12:25 | CASEMGMT ---
Choir Teacher Speaking with resident in room as staff reporting that resident is wanting to discharge today. This social science analyst inquiring as to why resident would like to discharge today. Resident reporting that resident daughter has an emergency today at [address] [facility] and would like to be there for that. This social science analyst voicing understanding and inquiring if resident has any transportation. Resident unsure and has been calling family. Emotional support given to resident along with active listening. Resident open to this social science analyst attempting to get transportation set up for resident. Telephone call to [facility], they are unable to transport resident. Telephone call to [facility], they are unable to transport due to non medical. Spoke with resident in room in regards to above information. Resident reporting to have been able to find transportation from resident brother. Further support given. Resident anxious. This social science analyst exploring option for resident to continue on the TCU unit until further information is gathered in regards to daughter. Resident declining this option and reporting to need to get to [place]. Resident brother currently in room at this time. Nursing staff notified. Will continue to follow as needed. Dai HARTLEY, QUILTING MACHINE HELPER
--- NOTE | 2017-09-20 13:05 | NURSING ---
explained to pt and son that pt needs to be back tonight, pt is going to see his daughter d/t family emergency. Therapy and staff assisting pt to car. pt very emotional at this time. pt verbalized understanding that he needs to return tonight to finish therapy.
--- NOTE | 2017-09-20 13:09 | NURSING ---
patients brother here to take patient on SONIA to visit daughter at [place]. wound vac to left stump removed and wet-to-dry dressing placed per wound RN recommendations. recently medicated for pain/anxiety. MAGNOLIA Warner had patient sign SONIA paper.
--- NOTE | 2017-09-20 14:11 | NURSING ---
Pt currently om an SONIA. the wound VAC was removed and a wet to dry dressing was applied prior to the patient leaving today. wound VAC can be applied when patient returns today.
[2017-09-20 16:00] VITALS: BP 143/76; PULSE 90; RESP 18; TEMP 36.2; O2SAT 99
--- NOTE | 2017-09-20 18:04 | NURSING ---
pt returned from [facility] at this time.
[2017-09-20 18:36] LABS: Bedside Glucose 263 mg/dL (70-110)
--- NOTE | 2017-09-20 18:47 | NURSING ---
pt returned from [place]. medicated for pain/anxiety. dressing to left stump intact--patient requesting to eat dinner prior to wound vac being replaced. will monitor.
[2017-09-20 21:31] LABS: Bedside Glucose 299 mg/dL (70-110)
[2017-09-20] MEDS: traZODone 50 MG Tablet 150 MG PO (22:01)
[2017-09-20] MEDS: Atorvastatin Calcium 20 MG Tablet PO (22:01)
[2017-09-20] MEDS: Donepezil HCl 10 MG Tablet PO (22:04)
[2017-09-21] MEDS: oxyCODONE 5 MG Tablet 15 MG PO ×4 (02:19→21:45)
[2017-09-21] MEDS: diazePAM 5 MG Tablet PO ×3 (02:20→18:11)
--- NOTE | 2017-09-21 02:21 | NURSING ---
Pt asking specifically for oxyir and valium repeatedly, hours before they are due to be given. Medicating as allowed per orders. RN aware. Continuing to monitoring.
[2017-09-21] MEDS: Menthol/Lanolin/Calamine/Znox 113 GM Tube 1 APPLIC TOPICAL ×2 (06:25→16:51)
[2017-09-21] MEDS: Loratadine 10 MG Tablet PO (06:26)
[2017-09-21] MEDS: DULoxetine Hcl 60 MG Capsule PO (06:26)
[2017-09-21] MEDS: Enoxaparin 40 MG/0.4 ML Syringe SC (06:27)
[2017-09-21] MEDS: Fluticasone/Salmeterol 232-14 Inhaler 1 PUFF IH ×2 (06:27→18:06)
[2017-09-21] MEDS: amLODIPine 5 MG Tablet PO (06:28)
[2017-09-21] MEDS: Polyethylene Glycol 3350 17 GM PACKET PO (06:28)
[2017-09-21] MEDS: Pregabalin 75 MG Capsule 150 MG PO ×2 (06:35→18:11)
[2017-09-21 06:46] LABS: Bedside Glucose 113 mg/dL (70-110)
[2017-09-21 09:46] LABS: Bedside Glucose 99 mg/dL (70-110)
[2017-09-21 11:21] LABS: Bedside Glucose 88 mg/dL (70-110)
--- NOTE | 2017-09-21 12:28 | NURSING ---
sitting up on side of bed, eating his lunch. requesting my medicine for PTSD so then all i will do is sleep. pt expresses events of recent loss of grandson and difficulties coping. i don't want to cry, i only cry at funerals, such as my moms and my other grandchildren. support provided.
--- NOTE | 2017-09-21 14:38 | NURSING ---
Wound VAC dressing was reapplied last evening after patient returned from [place]. Good seal noted at 150mmHg low continuous suction.
--- NOTE | 2017-09-21 15:52 | CHAPLAIN ---
Type of Pastoral Visit ___ Initial Visit _x__ Follow-up Visit ___ On-call Visit ___ General Patient Visit ___ Spiritual Assessment ___ Family Conference ___ Bereavement ___ Rapid Response ___ Code Blue ___ Other (describe below) Pastoral Care Referral From _x__ Patient ___ Family ___ Nurse ___ Physician ___ Research Manager ___ Moth Proofer ___ Other (describe below) Sacrament/Intervention _x__ Active listening ___ Anointing ___ Denominational _x__ Bereavement ___ Communion ___ Machelle exploration ___ _x__ Life review _x__ Prayer ___ Reconciliation ___ Sacrament of Sick _x__ Supportive presence ___ Wedding ___ Other (describe below) Pastoral Comments follow up to this patient led to discovery that his grandson was stillborn yesterday; pt is having grief of only grandchild and the inability to be with family at this time; pt has concerns about getting answers for his health and his future which he discussed with this account manager sales representative; pt wanted account manager sales representative to stay longer with him and would welcome future visits; pt welcomed a prayer;
[2017-09-21 16:00] VITALS: BP 105/64; PULSE 78; RESP 20; TEMP 36.3; O2SAT 99
[2017-09-21 17:01] LABS: Bedside Glucose 285 mg/dL (70-110)
[2017-09-21] MEDS: Insulin Lispro 100 UNIT/ML INSULN.PEN 10 UNIT SC (18:07)
[2017-09-21] MEDS: Acetaminophen 500 MG Tablet 1000 MG PO (18:10)
--- NOTE | 2017-09-21 19:47 | RAD_ITS ---
STUDY: X-RAY - UNILATERAL RIBS ( LEFT ) WITH CHEST REASON FOR EXAM: Male, 62 years old. FALL TECHNIQUE - RIBS: 4 view(s) of the ribs. TECHNIQUE - CHEST: Single AP portable view of the chest. COMPARISON: None. FINDINGS - RIBS: Fracture of the left lateral seventh and sixth rib. There is no pneumothorax. FINDINGS - CHEST: The lungs are clear and expanded. There is no demonstrated pleural abnormality. Normal size heart. Normal mediastinum and serg. Normal visualized pulmonary arteries. Normal visualized aortic arch and descending thoracic aorta. Normal visualized thoracic spine. Fracture of the left lateral seventh and sixth rib. There is no pneumothorax. There is no demonstrated abnormality of the visualized soft tissue structures of the upper abdomen. RAD/Ribs Uni Min 3V w/PA Chest IMPRESSION: RIBS: Fracture of the left lateral seventh and sixth rib. There is no pneumothorax. CHEST: Fracture of the left lateral seventh and sixth rib. There is no pneumothorax. Electronically Signed: Boogie Yanse MD at 21:39 EDT , Service support ,
--- NOTE | 2017-09-21 19:48 | RAD_ITS ---
STUDY: X-RAY - LEFT SHOULDER REASON FOR EXAM: Male, 62 years old. FALL TECHNIQUE: 2 view(s) of the shoulder. COMPARISON: None. FINDINGS: Normal glenohumeral articulation. Normal acromioclavicular joint. Normal acromion. Normal humeral head and visualized proximal humerus. The soft tissue structures are unremarkable. Normal visualized pulmonary apex. RAD/Shoulder min 2 Views IMPRESSION: Normal x-ray examination of the shoulder. Electronically Signed: Boogie Yanes MD at 21:38 EDT , Service support ,
--- NOTE | 2017-09-21 19:49 | RAD_ITS ---
STUDY: X-RAY - PELVIS AND BILATERAL HIPS REASON FOR EXAM: Male, 62 years old. Fall TECHNIQUE: Radiological exam, hip, bilateral, with pelvis when performed; 2 views COMPARISON: None. FINDINGS: There is a non-specific bowel gas pattern. Normal visualized soft tissue structures. There are atherosclerotic vascular calcifications. Normal bilateral iliac wings, sacroiliac joints and visualized sacrum. Normal bilateral superior and inferior pubic rami. Normal pubic symphysis. Normal bilateral ischial tuberosities. Normal visualized right femoral head. Normal right acetabulum. Normal right hip joint. Normal visualized left femoral head. Normal left acetabulum. Normal left hip joint. RAD/Hips B/L min 2 views w/ Pelvis IMPRESSION: Normal x-ray examination of the pelvis and bilateral hips. Electronically Signed: Boogie Yanes MD at 21:36 EDT , Service support ,
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
[2017-09-21 21:25] LABS: Bedside Glucose 241 mg/dL (70-110)
[2017-09-21] MEDS: Atorvastatin Calcium 20 MG Tablet PO (21:29)
[2017-09-21] MEDS: traZODone 50 MG Tablet 150 MG PO (21:29)
[2017-09-21] MEDS: Donepezil HCl 10 MG Tablet PO (21:29)
[2017-09-21 21:33] VITALS: PULSE 76; O2SAT 96
[2017-09-22 05:20] VITALS: BP 120/69; PULSE 81
[2017-09-22] MEDS: Menthol/Lanolin/Calamine/Znox 113 GM Tube 1 APPLIC TOPICAL ×2 (05:28→18:12)
[2017-09-22] MEDS: DULoxetine Hcl 60 MG Capsule PO (05:29)
[2017-09-22] MEDS: Loratadine 10 MG Tablet PO (05:29)
[2017-09-22] MEDS: Enoxaparin 40 MG/0.4 ML Syringe SC (05:29)
[2017-09-22] MEDS: Fluticasone/Salmeterol 232-14 Inhaler 1 PUFF IH ×2 (05:29→17:54)
[2017-09-22] MEDS: amLODIPine 5 MG Tablet PO (05:30)
[2017-09-22] MEDS: Pregabalin 75 MG Capsule 150 MG PO ×2 (05:33→18:08)
[2017-09-22 07:15] LABS: Bedside Glucose 236 mg/dL (70-110)
[2017-09-22] MEDS: Insulin Lispro 100 UNIT/ML INSULN.PEN 10 UNIT SC ×2 (08:02→17:56)
[2017-09-22 11:10] LABS: Bedside Glucose 119 mg/dL (70-110)
[2017-09-22] MEDS: oxyCODONE 5 MG Tablet 15 MG PO ×2 (11:12→15:23)
[2017-09-22] MEDS: diazePAM 5 MG Tablet PO ×2 (12:54→21:40)
[2017-09-22 15:45] VITALS: BP 147/58; PULSE 92; RESP 18; TEMP 36.4; O2SAT 96
--- NOTE | 2017-09-22 16:21 | NURSING ---
wound vac changed, good seal noted. pt tolerated well, Leighton wrap placed. pt resting in bed, bed in low position, mats on each side. call light in reach. alarm in place.
[2017-09-22 17:06] LABS: Bedside Glucose 268 mg/dL (70-110)
[2017-09-22] MEDS: Senna/Docusate Sodium 1 Tablet 2 TABLET PO (17:55)
[2017-09-22 21:21] LABS: Bedside Glucose 394 mg/dL (70-110)
[2017-09-22] MEDS: traZODone 50 MG Tablet 150 MG PO (21:34)
[2017-09-22] MEDS: Atorvastatin Calcium 20 MG Tablet PO (21:35)
[2017-09-22] MEDS: Donepezil HCl 10 MG Tablet PO (21:35)
[2017-09-23] MEDS: oxyCODONE 5 MG Tablet 15 MG PO ×5 (00:01→23:27)
[2017-09-23 03:45] VITALS: BP 114/88; PULSE 102; RESP 16; TEMP 36.7; O2SAT 97
[2017-09-23 04:01] LABS: Bedside Glucose 197 mg/dL (70-110)
--- NOTE | 2017-09-23 04:01 | NURSING ---
Addendum entered by Caro Cottrell 09/23/17 04:32: No visible injury noted. Leighton wrap changed d/t incontinence. Original Note: 0330 Pt's alarm alarming. RNAury entered room to find pt siting on buttocks next to bed, mat underneath buttocks. Call light on bed. Bed in low position. Side rails up. Pt currently urinating on mat. Pt refusing to allow staff to assist him back into bed. Pt grab side rail and pulled himself into bed. Pt c/o of rib area hurting after lying in bed. Pt AOx3, hand grasps equal. Vitals WNL. Pt denies hitting head. Pt stated, When I went to grab the urinals, they slide out of the way. Pt informed staff if he had his old bed we would not have fallen out. Restaurant Hostess notified.
[2017-09-23 04:15] VITALS: BP 129/90; PULSE 98; RESP 16; TEMP 36.8; O2SAT 97
[2017-09-23] MEDS: DULoxetine Hcl 60 MG Capsule PO (05:55)
[2017-09-23] MEDS: amLODIPine 5 MG Tablet PO (05:55)
[2017-09-23] MEDS: Loratadine 10 MG Tablet PO (05:55)
[2017-09-23] MEDS: Enoxaparin 40 MG/0.4 ML Syringe SC (05:55)
[2017-09-23] MEDS: Pregabalin 75 MG Capsule 150 MG PO ×2 (05:55→17:26)
[2017-09-23] MEDS: Fluticasone/Salmeterol 232-14 Inhaler 1 PUFF IH ×2 (05:56→17:36)
[2017-09-23] MEDS: Menthol/Lanolin/Calamine/Znox 113 GM Tube 1 APPLIC TOPICAL ×2 (05:57→17:35)
--- NOTE | 2017-09-23 06:37 | NURSING ---
Addendum entered by Caro Cottrell 09/23/17 06:40: Daughter Pushpa notified pt found on floor and being sent to ER. Daughter would like an update on father. Daughter agreeable to room camera on pt. Original Note: Addendum entered by Lainey Talamantes 09/23/17 06:38: Report called to Roxy in ER. Original Note: Pt c/o of difficulty breathing after found on floor this AM. Dr Horn aware N.O. send to ER r/o pneumothorax.
[2017-09-23 06:46] LABS: Bedside Glucose 183 mg/dL (70-110)
[2017-09-23] MEDS: Insulin Lispro 100 UNIT/ML INSULN.PEN 10 UNIT SC ×2 (10:15→17:28)
--- NOTE | 2017-09-23 10:28 | MDS.RN ---
Information for the mds was obtained from review of the clinical record, interview of resident, staff, and direct observation of resident's care.
[2017-09-23 11:25] LABS: Bedside Glucose 128 mg/dL (70-110)
--- NOTE | 2017-09-23 12:00 | NURSING ---
Pt sick and having nausea, very pale and upset. Pt requesting that his regular bed be returned. this nurse tried to explain that Pt has fallen 2x in past several days and the hi-low bed is for his safety. Pt still very upset. This nurse also held Pt humalog. PT blood sugar was 128 and pt is refusing to eat.
[2017-09-23 15:59] VITALS: BP 126/60; PULSE 80; RESP 20; TEMP 36.9; O2SAT 95
[2017-09-23 16:55] LABS: Bedside Glucose 209 mg/dL (70-110)
[2017-09-23] MEDS: Senna/Docusate Sodium 1 Tablet 2 TABLET PO (17:27)
[2017-09-23] MEDS: diazePAM 5 MG Tablet PO (19:19)
[2017-09-23 21:08] VITALS: PULSE 68; RESP 18; O2SAT 95
[2017-09-23] MEDS: Donepezil HCl 10 MG Tablet PO (21:15)
[2017-09-23] MEDS: traZODone 50 MG Tablet 150 MG PO (21:15)
[2017-09-23] MEDS: Atorvastatin Calcium 20 MG Tablet PO (21:15)
[2017-09-23 21:26] LABS: Bedside Glucose 186 mg/dL (70-110)
--- NOTE | 2017-09-23 23:31 | NURSING ---
Given PRN pain medication oxyir 15mg per pt request. Repositioned for comfort. Continuing to monitor, RN aware.
[2017-09-24] MEDS: Pregabalin 75 MG Capsule 150 MG PO ×2 (04:40→17:46)
[2017-09-24] MEDS: Enoxaparin 40 MG/0.4 ML Syringe SC (04:40)
[2017-09-24] MEDS: Senna/Docusate Sodium 1 Tablet 2 TABLET PO (04:41)
[2017-09-24] MEDS: Loratadine 10 MG Tablet PO (04:41)
[2017-09-24] MEDS: oxyCODONE 5 MG Tablet 15 MG PO ×2 (04:41→14:39)
[2017-09-24] MEDS: Menthol/Lanolin/Calamine/Znox 113 GM Tube 1 APPLIC TOPICAL ×2 (04:41→17:44)
[2017-09-24] MEDS: DULoxetine Hcl 60 MG Capsule PO (04:42)
[2017-09-24] MEDS: amLODIPine 5 MG Tablet PO (04:42)
[2017-09-24] MEDS: Fluticasone/Salmeterol 232-14 Inhaler 1 PUFF IH ×2 (04:42→17:34)
[2017-09-24 07:01] LABS: Bedside Glucose 286 mg/dL (70-110)
[2017-09-24] MEDS: Insulin Lispro 100 UNIT/ML INSULN.PEN 10 UNIT SC ×3 (08:23→17:45)
[2017-09-24] MEDS: diazePAM 5 MG Tablet PO (09:24)
--- NOTE | 2017-09-24 09:46 | NURSING ---
Addendum entered by Maxine Henriquez 09/24/17 14:38: Dr. Horn aware and spoke with patient Original Note: Pt very upset and yelling at staff this nurse into room to try and deescalate the situation. Pt upset about having an alarm, this nurse tried explaining that Pt had fallen twice and alarm was needed for his safety. Pt ripped alarm off and threw alarm at this nurse, Stating that it's bullshit, he doesn't want it. PT unwrapped his oswald wrap complaining it wasn't wrapped correctly. This nurse rewrapped pt oswald wrap, gave Pt PRN medication for anxiety. This nurse tried calming Pt down, Pt still upset but no longer yelling, adjust Pt in bed, Call light within reach. MAGNOLIA tariq
[2017-09-24 10:00] VITALS: PULSE 94; RESP 18; O2SAT 96
[2017-09-24 11:21] LABS: Bedside Glucose 293 mg/dL (70-110)
[2017-09-24 15:28] VITALS: BP 125/60; PULSE 93; RESP 20; TEMP 36.8; O2SAT 96
[2017-09-24 16:46] LABS: Bedside Glucose 230 mg/dL (70-110)
--- NOTE | 2017-09-24 16:59 | CASEMGMT ---
Brief interview for mental status (BIMS) and resident mood interview (PHQ-9) completed on this day. BIMS score 13/15. PHQ-9 score 11/15
[2017-09-24] MEDS: traZODone 50 MG Tablet 150 MG PO (20:25)
[2017-09-24] MEDS: Atorvastatin Calcium 20 MG Tablet PO (20:26)
[2017-09-24] MEDS: Donepezil HCl 10 MG Tablet PO (20:26)
[2017-09-24 21:15] LABS: Bedside Glucose 243 mg/dL (70-110)
[2017-09-25] MEDS: DULoxetine Hcl 60 MG Capsule PO (05:34)
[2017-09-25] MEDS: amLODIPine 5 MG Tablet PO (05:34)
[2017-09-25] MEDS: Loratadine 10 MG Tablet PO (05:34)
[2017-09-25] MEDS: Senna/Docusate Sodium 1 Tablet 2 TABLET PO ×2 (05:34→17:45)
[2017-09-25] MEDS: Pregabalin 75 MG Capsule 150 MG PO ×2 (05:35→17:41)
[2017-09-25] MEDS: Menthol/Lanolin/Calamine/Znox 113 GM Tube 1 APPLIC TOPICAL ×2 (05:35→17:51)
[2017-09-25] MEDS: Fluticasone/Salmeterol 232-14 Inhaler 1 PUFF IH ×2 (05:39→17:44)
[2017-09-25] MEDS: Enoxaparin 40 MG/0.4 ML Syringe SC (05:41)
[2017-09-25] MEDS: Polyethylene Glycol 3350 17 GM PACKET PO (05:42)
[2017-09-25 05:44] VITALS: PULSE 86; RESP 16; O2SAT 96
[2017-09-25 06:45] LABS: Bedside Glucose 185 mg/dL (70-110)
[2017-09-25 06:59] LABS: Absolute Lymphocyte Count 1.12 X10^3/ul (0.83-4.51); Absolute Neutrophil Count 3.9 X10^3/uL (2.0-7.7); Basophil# 0.03 X10^3/uL; Basophil% 0.5 % (0-1); Eosinophil# 0.18 X10^3/uL; Eosinophils% 3.1 % (0-5); Hematocrit 28.9 % (40-54); Hemoglobin 9.6 g/dl (13.0-16.5); Lymphocyte # 1.12 X10^3/ul (4.0); Lymphocyte % 19.3 % (19-41); Mean Corp Hgb Conc 33.2 g/gl (32-36); Mean Corpuscular Hgb 30.4 pg (27.0-32.0); Mean Corpuscular Volume 91.5 fL (80-94); Mean Platelet Vol. 10.1 fl (6.2-12.0); Monocyte# 0.63 X10^3/uL; Monocyte% 10.8 % (0-10); Neutrophil # 3.85 X10^3/uL (2.7-7.7); Neutrophil % 66.3 % (47-70); Platelet Count 379 K/mm3 (150-450); RBC Distribution Width CV 12.8 % (11.6-14.6); Red Blood Count 3.16 M/mm3 (4.6-6.2); White Blood Count 5.8 K/mm3 (4.4-11.0)
[2017-09-25 07:07] LABS: POSITIVE COUNT NO; POSITIVE DIFFERENTIAL NO; POSITIVE MORPHOLOGY NO
[2017-09-25 07:12] LABS: Anion Gap 7 (5-15); BUN 25 mg/dL (7-18); BUN/Creat Ratio 25.2 RATIO (10-20); Calcium,Total 8.3 mg/dL (8.5-10.1); Chloride 107 mmol/L (98-107); Creatinine, Serum 0.99 mg/dL (0.70-1.30); EST Glomerular Filtration Rate 81 mL/min (>60); Est Glom Filt Rate - Afr Amer 98 mL/min (>60); Glucose 169 mg/dL (74-106); Potassium 4.7 mmol/L (3.5-5.1); Sodium Level 140 mmol/L (136-145)
[2017-09-25] MEDS: Insulin Lispro 100 UNIT/ML INSULN.PEN 10 UNIT SC ×3 (10:14→17:43)
[2017-09-25] MEDS: oxyCODONE 5 MG Tablet 15 MG PO ×3 (10:18→20:24)
[2017-09-25 11:06] LABS: Bedside Glucose 189 mg/dL (70-110)
--- NOTE | 2017-09-25 12:03 | NURSING ---
R' is refusing the Personal alarm, says it triggers his PTSD. Removed at patient request. He was advised of his risk for falling. 0...........................
[2017-09-25] MEDS: diazePAM 5 MG Tablet PO ×2 (13:23→20:25)
--- NOTE | 2017-09-25 13:52 | NURSING ---
Dr. Horn reviewed AM labs, NNO
[2017-09-25 15:40] VITALS: BP 127/62; PULSE 84; RESP 20; TEMP 36.6; O2SAT 92
[2017-09-25 17:00] LABS: Bedside Glucose 174 mg/dL (70-110)
[2017-09-25] MEDS: traZODone 50 MG Tablet 150 MG PO (20:25)
[2017-09-25] MEDS: Donepezil HCl 10 MG Tablet PO (20:29)
[2017-09-25] MEDS: Atorvastatin Calcium 20 MG Tablet PO (20:29)
[2017-09-25 20:51] LABS: Bedside Glucose 246 mg/dL (70-110)
[2017-09-26] MEDS: oxyCODONE 5 MG Tablet 15 MG PO ×6 (00:24→22:04)
--- NOTE | 2017-09-26 00:26 | NURSING ---
Pt given prn oxyir 15mg that he has asked for consistently since approx 10pm. When this nurse entered room to the minute the medication was allowed, he angrily stated how late are you this time? Explained to pt it was exactly time it was due, he said nothing but accepted meds. RN aware, continuing to monitor.
[2017-09-26] MEDS: diazePAM 5 MG Tablet PO ×3 (03:01→20:12)
[2017-09-26] MEDS: Menthol/Lanolin/Calamine/Znox 113 GM Tube 1 APPLIC TOPICAL ×2 (04:52→18:10)
[2017-09-26] MEDS: Loratadine 10 MG Tablet PO (04:53)
[2017-09-26] MEDS: DULoxetine Hcl 60 MG Capsule PO (04:53)
[2017-09-26] MEDS: amLODIPine 5 MG Tablet PO (04:54)
[2017-09-26] MEDS: Fluticasone/Salmeterol 232-14 Inhaler 1 PUFF IH ×2 (04:54→17:57)
[2017-09-26] MEDS: Enoxaparin 40 MG/0.4 ML Syringe SC (04:54)
[2017-09-26] MEDS: Senna/Docusate Sodium 1 Tablet 2 TABLET PO (04:55)
[2017-09-26] MEDS: Pregabalin 75 MG Capsule 150 MG PO ×2 (04:56→17:53)
--- NOTE | 2017-09-26 05:02 | NURSING ---
Pt very he with this nurse, demanding to know 'where have you been with my 7pm dose of pain killers?' Explained he has been medicated as orders allowed, throughout shift, and he has called asking for medications many more times than he has been allowed. Pt got defensive over this stating 'these meds make me forget where are my pills?' Given am meds per request. Pt repositioned. RN aware. Continuing to monitor.
[2017-09-26 06:41] LABS: Bedside Glucose 151 mg/dL (70-110)
[2017-09-26] MEDS: Insulin Lispro 100 UNIT/ML INSULN.PEN 10 UNIT SC ×3 (08:01→17:50)
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
[2017-09-26 10:00] VITALS: O2SAT 96
[2017-09-26 11:01] LABS: Bedside Glucose 203 mg/dL (70-110)
[2017-09-26 15:44] VITALS: BP 110/61; PULSE 80; RESP 18; TEMP 36.4; O2SAT 93
[2017-09-26 17:01] LABS: Bedside Glucose 166 mg/dL (70-110)
--- NOTE | 2017-09-26 17:07 | NURSING ---
Dr. Andrew in to see patient today, NNO. Patient does not need to come to wound clinic appt this week, Dr. Andrew will come to unit.
[2017-09-26] MEDS: traZODone 50 MG Tablet 150 MG PO (20:15)
--- NOTE | 2017-09-26 20:16 | NURSING ---
Pt calling desk, demanding 'vicodin now' over and over in the last hour alone. This nurse brought pt valium and he was not happy with this, continued to ask for vicodin and 'anything for pain' Repeatedly asked when he had meds, when meds would be next due, which was written on paper. Did not want to accept this. Asked what the hell happened? 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 I've seen people ! I've seen people helicoptered out and still ! How about that?! Told pt we would do our best and keep him up on his prn meds during the night, and encouraged rest. Within moments of leaving room, pt is yelling very loudly demanding dilaudid. RNs aware. Continuing to monitor.
[2017-09-26] MEDS: Atorvastatin Calcium 20 MG Tablet PO (20:21)
[2017-09-26] MEDS: Donepezil HCl 10 MG Tablet PO (20:21)
[2017-09-26 21:11] LABS: Bedside Glucose 183 mg/dL (70-110)
[2017-09-27] MEDS: oxyCODONE 5 MG Tablet 15 MG PO ×5 (02:16→22:01)
[2017-09-27] MEDS: diazePAM 5 MG Tablet PO ×3 (02:17→17:51)
[2017-09-27] MEDS: Menthol/Lanolin/Calamine/Znox 113 GM Tube 1 APPLIC TOPICAL ×2 (06:20→17:44)
[2017-09-27] MEDS: amLODIPine 5 MG Tablet PO (06:21)
[2017-09-27] MEDS: Loratadine 10 MG Tablet PO (06:22)
[2017-09-27] MEDS: DULoxetine Hcl 60 MG Capsule PO (06:22)
[2017-09-27] MEDS: Fluticasone/Salmeterol 232-14 Inhaler 1 PUFF IH ×2 (06:22→17:51)
[2017-09-27] MEDS: Enoxaparin 40 MG/0.4 ML Syringe SC (06:22)
[2017-09-27] MEDS: Pregabalin 75 MG Capsule 150 MG PO ×2 (06:25→17:51)
[2017-09-27 06:41] LABS: Bedside Glucose 213 mg/dL (70-110)
[2017-09-27] MEDS: Insulin Lispro 100 UNIT/ML INSULN.PEN 10 UNIT SC ×3 (08:11→17:53)
[2017-09-27 11:05] LABS: Bedside Glucose 330 mg/dL (70-110)
--- NOTE | 2017-09-27 15:23 | NURSING ---
wound photo: left leg
[2017-09-27 16:55] LABS: Bedside Glucose 300 mg/dL (70-110)
[2017-09-27 17:47] VITALS: BP 129/71; PULSE 84; RESP 20; TEMP 36.2; O2SAT 91
[2017-09-27 21:16] LABS: Bedside Glucose 139 mg/dL (70-110)
[2017-09-27] MEDS: Donepezil HCl 10 MG Tablet PO (21:56)
[2017-09-27] MEDS: traZODone 50 MG Tablet 150 MG PO (21:56)
[2017-09-27] MEDS: Atorvastatin Calcium 20 MG Tablet PO (21:56)
[2017-09-27 22:00] VITALS: RESP 18
[2017-09-28] MEDS: Pregabalin 75 MG Capsule 150 MG PO ×2 (06:25→18:01)
[2017-09-28] MEDS: Senna/Docusate Sodium 1 Tablet 2 TABLET PO ×2 (06:26→18:01)
[2017-09-28] MEDS: Enoxaparin 40 MG/0.4 ML Syringe SC (06:26)
[2017-09-28] MEDS: DULoxetine Hcl 60 MG Capsule PO (06:26)
[2017-09-28] MEDS: Loratadine 10 MG Tablet PO (06:26)
[2017-09-28] MEDS: amLODIPine 5 MG Tablet PO (06:26)
[2017-09-28] MEDS: Menthol/Lanolin/Calamine/Znox 113 GM Tube 1 APPLIC TOPICAL ×2 (06:27→17:57)
[2017-09-28] MEDS: Insulin Lispro 100 UNIT/ML INSULN.PEN 10 UNIT SC ×3 (06:30→18:02)
[2017-09-28] MEDS: Fluticasone/Salmeterol 232-14 Inhaler 1 PUFF IH ×2 (06:31→17:56)
[2017-09-28 06:35] LABS: Bedside Glucose 127 mg/dL (70-110)
[2017-09-28] MEDS: oxyCODONE 5 MG Tablet 15 MG PO ×3 (07:58→19:58)
--- NOTE | 2017-09-28 09:10 | NURSING ---
THIS NURSE WALKED INTO PT ROOM AND FOUND PT HEAD AT FOOT OF BED AND LEGS AT HEAD OF BED WITH PT LEANING HALF WAY OUT OF BED TRYING TO SERVICE EMPLOYEE A FORK OFF OF FLOOR. PT BREAKFAST TRAY WAS TIPPING OFF OF BED SIDE TABLE. THIS NURSE TRYED TO GRAB TRAY BEFORE IT FELL BUT WAS UNSUCCESSFUL AND TRAY SPILLED ON TO FLOOR AND PT. PT STARTED THRASHING AROUND IN BED AND THIS NURSE GRAB AND HELD ON TO PT SO HE WOULDNT FALL OUT OF BED TILL PT CALAMED DOWN WHILE TRYING TO WIPE PT OFF FROM FOOD AND HOT COFFEE. LOOKED PT OVER AND PT STATED HIS GROIN HURT. GROIN WAS RED BUT NO BLISTERS,ETC AT THIS TIME. WILL CONTINUE TO MONITOR. OFFERED PT ICE OR A COOL RAG,PT REFUSED. MAURO FROM HOUSE KEEPING IN ROOM TO CLEAN. REPORTED TO MAGNOLIA KIMBROUGH
--- NOTE | 2017-09-28 10:10 | NURSING ---
No for CT of head d/t changes in mental status and slurring.
[2017-09-28 12:00] LABS: Bedside Glucose 278 mg/dL (70-110)
--- NOTE | 2017-09-28 15:32 | CASEMGMT ---
Social Work Spoke with resident in room to collaborate on a discharge plan. This group social worker communicating to resident that currently recommendation would be for resident to transition to an extended care facility as resident is not safe to discharge home alone at this time. Resident voicing to live with brother but that brother works during the day and is unable to provide 24hr care for resident. Team currently recommending for resident to have 24hr care at time of discharge. Resident reporting to not be open to transitioning to another facility at this time and wanting to continue with stay on the Transitional Care Unit. Resident is open to this group social worker contact resident daughter in regards to discharge plan as well. Support given. Telephone call to Allison (resident daughter). Allison expressing concerns with resident discharging back to the community and is encouraging resident to transition to another facility that resident can stay in exterminator termite. Allison voicing that resident has been at [facility] and the [facility] before and that these might be options that resident is open to. Support given. Will continue to follow. Dai HARTLEY, PARANORMAL INVESTIGATOR
[2017-09-28 15:34] VITALS: BP 127/60; PULSE 94; RESP 18; TEMP 36.8; O2SAT 97
--- NOTE | 2017-09-28 15:47 | NURSING ---
WALKED INTO PT ROOM,PT ON PHONE TO DAUGHTER AND STATED TO HER THAT HE JUST WANTS TO COME HOME AND SLIT HIS WRISTS AND . REPORTED TO MARILYN RN.
[2017-09-28 16:55] LABS: Bedside Glucose 126 mg/dL (70-110)
[2017-09-28] MEDS: traZODone 50 MG Tablet 150 MG PO (19:59)
[2017-09-28] MEDS: Donepezil HCl 10 MG Tablet PO (20:00)
[2017-09-28] MEDS: Atorvastatin Calcium 20 MG Tablet PO (20:00)
[2017-09-28] MEDS: diazePAM 5 MG Tablet PO (20:01)
[2017-09-28 20:40] VITALS: PULSE 74; RESP 18; O2SAT 94
[2017-09-28 21:20] LABS: Bedside Glucose 147 mg/dL (70-110)
[2017-09-29] MEDS: oxyCODONE 5 MG Tablet 15 MG PO ×4 (01:00→20:37)
[2017-09-29] MEDS: DULoxetine Hcl 60 MG Capsule PO (05:36)
[2017-09-29] MEDS: Loratadine 10 MG Tablet PO (05:36)
[2017-09-29] MEDS: amLODIPine 5 MG Tablet PO (05:36)
[2017-09-29] MEDS: Menthol/Lanolin/Calamine/Znox 113 GM Tube 1 APPLIC TOPICAL ×2 (05:36→16:59)
[2017-09-29] MEDS: Senna/Docusate Sodium 1 Tablet 2 TABLET PO (05:37)
[2017-09-29] MEDS: Enoxaparin 40 MG/0.4 ML Syringe SC (05:38)
[2017-09-29] MEDS: Fluticasone/Salmeterol 232-14 Inhaler 1 PUFF IH ×2 (05:38→17:04)
[2017-09-29] MEDS: diazePAM 5 MG Tablet PO ×2 (06:32→18:29)
[2017-09-29] MEDS: Pregabalin 75 MG Capsule 150 MG PO ×2 (06:33→16:58)
[2017-09-29 06:50] LABS: Bedside Glucose 107 mg/dL (70-110)
[2017-09-29] MEDS: Insulin Lispro 100 UNIT/ML INSULN.PEN 10 UNIT SC ×3 (08:12→16:59)
[2017-09-29 09:07] VITALS: PULSE 70; RESP 18; O2SAT 94
[2017-09-29 12:45] LABS: Bedside Glucose 318 mg/dL (70-110)
[2017-09-29 17:01] LABS: Bedside Glucose 192 mg/dL (70-110)
[2017-09-29] MEDS: traZODone 50 MG Tablet 150 MG PO (20:38)
[2017-09-29] MEDS: Donepezil HCl 10 MG Tablet PO (20:38)
[2017-09-29] MEDS: Atorvastatin Calcium 20 MG Tablet PO (20:39)
[2017-09-29 21:05] LABS: Bedside Glucose 286 mg/dL (70-110)
[2017-09-30] MEDS: oxyCODONE 5 MG Tablet 15 MG PO ×2 (01:59→20:25)
--- NOTE | 2017-09-30 02:40 | NURSING ---
Pt dressing to L stump replaced twice d/t pt removing them. Stated he was in PSTD didn't know he was removing them per MAGNOLIA Kunz
[2017-09-30] MEDS: Menthol/Lanolin/Calamine/Znox 113 GM Tube 1 APPLIC TOPICAL ×2 (04:08→17:30)
[2017-09-30] MEDS: Pregabalin 75 MG Capsule 150 MG PO ×2 (04:09→17:28)
[2017-09-30] MEDS: DULoxetine Hcl 60 MG Capsule PO (04:12)
[2017-09-30] MEDS: Loratadine 10 MG Tablet PO (04:12)
[2017-09-30] MEDS: Senna/Docusate Sodium 1 Tablet 2 TABLET PO (04:13)
[2017-09-30] MEDS: amLODIPine 5 MG Tablet PO (04:13)
[2017-09-30] MEDS: Polyethylene Glycol 3350 17 GM PACKET PO (04:14)
[2017-09-30] MEDS: Fluticasone/Salmeterol 232-14 Inhaler 1 PUFF IH (04:15)
[2017-09-30] MEDS: Enoxaparin 40 MG/0.4 ML Syringe SC (04:19)
[2017-09-30 04:23] VITALS: PULSE 79; O2SAT 96
--- NOTE | 2017-09-30 04:36 | NURSING ---
pt stated to this nurse that his grandbaby on 09/20/17 and no one would take him to see even when he offered money to family members to take him.
[2017-09-30] MEDS: diazePAM 5 MG Tablet PO (07:04)
[2017-09-30 07:06] LABS: Bedside Glucose 178 mg/dL (70-110)
[2017-09-30] MEDS: Insulin Lispro 100 UNIT/ML INSULN.PEN 10 UNIT SC ×3 (08:20→17:29)
[2017-09-30 11:20] LABS: Bedside Glucose 258 mg/dL (70-110)
--- NOTE | 2017-09-30 14:14 | NURSING ---
Pt refusing personal alarm at this time, Pt states it makes his PTSD go out of control. This nurse talked with Pt daughter who states that she doesn't want him to have it because it makes him agitated and restless. Maxine MERIDA aware
[2017-09-30 15:58] VITALS: BP 109/55; PULSE 88; RESP 18; TEMP 36.8; O2SAT 98
--- NOTE | 2017-09-30 15:59 | PCA ---
Patient self transferred from his w/c to bed. FAMILY COURT JUSTICE aware
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
[2017-09-30 16:56] LABS: Bedside Glucose 160 mg/dL (70-110)
[2017-09-30] MEDS: Atorvastatin Calcium 20 MG Tablet PO (20:22)
[2017-09-30] MEDS: Donepezil HCl 10 MG Tablet PO (20:22)
[2017-09-30] MEDS: traZODone 50 MG Tablet 150 MG PO (20:23)
--- NOTE | 2017-09-30 20:28 | NURSING ---
pt stated he wanted bed move close toward tv because glasses are broken and couldn't see this nurse moved be closer and locked bed back. pt was upset because he didn't have breakfast this morning. when this nurse walked in room pt had a dinner tray on table he sat up to eat saw that he had dinner and not breakfast voiced that he was angry.
[2017-09-30 21:16] LABS: Bedside Glucose 168 mg/dL (70-110)
[2017-10-01] MEDS: Pregabalin 75 MG Capsule 150 MG PO ×2 (05:42→17:32)
[2017-10-01] MEDS: Senna/Docusate Sodium 1 Tablet 2 TABLET PO ×2 (05:43→17:32)
[2017-10-01] MEDS: amLODIPine 5 MG Tablet PO (05:43)
[2017-10-01] MEDS: DULoxetine Hcl 60 MG Capsule PO (05:43)
[2017-10-01] MEDS: Loratadine 10 MG Tablet PO (05:43)
[2017-10-01] MEDS: Menthol/Lanolin/Calamine/Znox 113 GM Tube 1 APPLIC TOPICAL (05:43)
[2017-10-01] MEDS: Enoxaparin 40 MG/0.4 ML Syringe SC (05:44)
[2017-10-01] MEDS: Fluticasone/Salmeterol 232-14 Inhaler 1 PUFF IH ×2 (05:47→17:32)
[2017-10-01] MEDS: Polyethylene Glycol 3350 17 GM PACKET PO (06:50)
[2017-10-01 06:56] LABS: Bedside Glucose 186 mg/dL (70-110)
[2017-10-01] MEDS: Insulin Lispro 100 UNIT/ML INSULN.PEN 10 UNIT SC ×3 (07:56→17:38)
[2017-10-01 11:46] LABS: Bedside Glucose 177 mg/dL (70-110)
[2017-10-01] MEDS: oxyCODONE 5 MG Tablet 15 MG PO ×2 (12:44→22:11)
[2017-10-01 15:18] VITALS: BP 127/67; PULSE 90; RESP 20; TEMP 36.6; O2SAT 100
[2017-10-01] MEDS: diazePAM 5 MG Tablet PO (15:46)
[2017-10-01 17:05] LABS: Bedside Glucose 167 mg/dL (70-110)
[2017-10-01 21:40] LABS: Bedside Glucose 184 mg/dL (70-110)
[2017-10-01] MEDS: traZODone 50 MG Tablet 150 MG PO (22:08)
[2017-10-01] MEDS: Atorvastatin Calcium 20 MG Tablet PO (22:09)
[2017-10-01] MEDS: Donepezil HCl 10 MG Tablet PO (22:09)
[2017-10-01 23:35] VITALS: PULSE 78; RESP 18; O2SAT 98
[2017-10-02] MEDS: diazePAM 5 MG Tablet PO ×3 (04:52→21:54)
[2017-10-02] MEDS: Polyethylene Glycol 3350 17 GM PACKET PO ×2 (04:52→04:53)
[2017-10-02] MEDS: Senna/Docusate Sodium 1 Tablet 2 TABLET PO (04:53)
[2017-10-02] MEDS: amLODIPine 5 MG Tablet PO (04:53)
[2017-10-02] MEDS: DULoxetine Hcl 60 MG Capsule PO (04:53)
[2017-10-02] MEDS: Loratadine 10 MG Tablet PO (04:54)
[2017-10-02] MEDS: Fluticasone/Salmeterol 232-14 Inhaler 1 PUFF IH (04:55)
[2017-10-02] MEDS: Enoxaparin 40 MG/0.4 ML Syringe SC (04:57)
[2017-10-02] MEDS: Menthol/Lanolin/Calamine/Znox 113 GM Tube 1 APPLIC TOPICAL ×2 (04:59→18:13)
[2017-10-02 07:00] LABS: Bedside Glucose 150 mg/dL (70-110)
[2017-10-02] MEDS: Pregabalin 75 MG Capsule 150 MG PO ×2 (07:17→20:34)
[2017-10-02 07:28] LABS: Basophil# 0.01 X10^3/uL; Basophil% 0.2 % (0-1); Eosinophil# 0.24 X10^3/uL; Eosinophils% 5.9 % (0-5); Hematocrit 26.7 % (40-54); Hemoglobin 8.9 g/dl (13.0-16.5); Lymphocyte % 34.4 % (19-41); Mean Corp Hgb Conc 33.3 g/gl (32-36); Mean Corpuscular Hgb 30.1 pg (27.0-32.0); Mean Corpuscular Volume 90.2 fL (80-94); Mean Platelet Vol. 9.9 fl (6.2-12.0); Monocyte% 9.8 % (0-10); Neutrophil # 2.02 X10^3/uL (2.7-7.7); Neutrophil % 49.7 % (47-70); Platelet Count 342 K/mm3 (150-450); RBC Distribution Width CV 12.7 % (11.6-14.6); RBC Distribution Width SD 42.3 fl (35.1-43.9); Red Blood Count 2.96 M/mm3 (4.6-6.2); White Blood Count 4.1 K/mm3 (4.4-11.0)
[2017-10-02 07:34] LABS: Anion Gap 8 (5-15); BUN 30 mg/dL (7-18); BUN/Creat Ratio 30.7 RATIO (10-20); Calcium,Total 8.8 mg/dL (8.5-10.1); Chloride 106 mmol/L (98-107); Creatinine, Serum 0.98 mg/dL (0.70-1.30); EST Glomerular Filtration Rate 83 mL/min (>60); Est Glom Filt Rate - Afr Amer 100 mL/min (>60); Estimated Creatinine Clearance 83.24 ml/min; Glucose 153 mg/dL (74-106); Potassium 4.6 mmol/L (3.5-5.1); Sodium Level 142 mmol/L (136-145)
[2017-10-02 07:50] LABS: POSITIVE COUNT NO; POSITIVE DIFFERENTIAL NO; POSITIVE MORPHOLOGY NO
[2017-10-02] MEDS: oxyCODONE 5 MG Tablet 15 MG PO ×2 (08:16→18:09)
[2017-10-02] MEDS: Insulin Lispro 100 UNIT/ML INSULN.PEN 10 UNIT SC ×3 (08:17→18:11)
[2017-10-02 09:54] VITALS: PULSE 74; RESP 18; O2SAT 94
[2017-10-02 11:31] LABS: Bedside Glucose 179 mg/dL (70-110)
--- NOTE | 2017-10-02 15:22 | NURSING ---
This nurse answered call light, Pt threatened this nurse by saying, If someone wasn't in his room in 10 seconds to transfer him he was doing it himself, And proceeded to call TCU staff bitches This nurse went straight into room Patient hanging off side of bed holding onto bedrail with half his body over side of bed. This nurse helped patient into bed, Pt irate and cursing. Calling staff worthless and stating that no one cares. This nurse tried explaining that his call light was answered as soon as this nurse noticed it was on and that we have other patients we are helping as well and sometimes it may take a few minutes, this nurse tried adjusting patient in bed and helping him to get comfortable, Pt put his face inches from this nurse face and yelled move my Fshelly bed close to the TV now this nurse asked Pt to not speak to her like that and that he needed to be respectful, Pt stated he will do whatever he wants he was a mounted police, and he will have this nurse arrested and fired. This nurse tried reasing with Pt, Pt very agitated and non compliant. Pt on phone with his daughter when this nurse left room. Alana MERIDA aware
[2017-10-02 15:59] VITALS: BP 124/66; PULSE 83; RESP 16; TEMP 36.3; O2SAT 97
[2017-10-02 16:55] LABS: Bedside Glucose 235 mg/dL (70-110)
--- NOTE | 2017-10-02 17:55 | NURSING ---
PT RESTING IN BED, TOOK TRAY IN AND PT VERY LOUD, RUDE & JUMPING FROM ONE ISSUE TO ANOTHER WITH DIFFICULTY EXPLAINING WHY HE IS UPSET. SET UP FOOD ON TRAY FOR PT, PT NOT HAPPY WITH HIS CARE HERE OR MEALS. STATES THAT [facility] CALLED HIM ABOUT HIS PROSTHESIS EARLY THIS AM LETTING HIM KNOW THAT HE IS BEING DISCHARGED. EXPLAINED TO PT THAT WE ARE NOT AWARE OF A DISCHARGE DATE OR THAT [employer] CALLING HIM. STATES THAT NURSING STAFF ARE HAVING BOYFRIENDS UP DURING THEIR SHIFT AND HE KNOWS WHAT GOES ON IN HOSPITALS BECAUSE HIS WHO WAS A PHARMACIST WAS SCREWING A DOCTOR. 1:1 SUPPORT GIVEN BUT PT WOULD JUMP FROM ONE SUBJECT MATTER TO ANOTHER MAKING IT DIFFICULT TO UNDERSTAND HIS COMPLAINTS. OFFERED TO HAVE SERVICE CAR OPERATOR COME TO ROOM ON WEDNESDAY TO DISCUSS HIS ISSUES AND PT DECLINED. MESSAGE LEFT WITH IPHONE DEVELOPER. PT IS GETTING VERY DIFFICULT TO MANAGE BY NURSING STAFF, VERBALLY ABUSIVE.
--- NOTE | 2017-10-02 18:17 | NURSING ---
Pt being very demanding and verbally abusive to this nurse and staff. Pt demanding oxycodone for pain at this time, This nurse gave Pt pain medication like Pt requested. Pt stating he is calling push and reporting TCU and staff because he has the right to get what he wants when he wants and we aren't doing that. Pt very aggressive and stating he will start doing things himself and not asking staff, because Pt knows how to take care of himself Pt claiming that he has called attorney lawyer to file a law suit because he doesn't feel that he is getting what he needs. Pt stating he wants to go home and TCU is holding him against his will. This nurse reported situation to Alana MERIDA
[2017-10-02 21:11] LABS: Bedside Glucose 345 mg/dL (70-110)
--- NOTE | 2017-10-02 21:45 | NURSING ---
Pt has been calling out every couple minutes requesting various things like meds, feeling is soda pitcher, putting covers back on him several times (patient keeps removing the covers and throwing them on the floor), and requesting staff move his bed. Explained that bed cannot be moved closer to TV because the bed cords is taunt and cannot be moved anymore. Pt becomes very demanding, and states that he made a mistake coming to this hospital, as he feels he is not receiving the care he wants. Staff has caught patient reaching towards the floor to pick various things up. Nurse asked patient not to do this as he could fall onto the floor, but patient disregards and continues to do this.
[2017-10-02] MEDS: traZODone 50 MG Tablet 150 MG PO (21:48)
[2017-10-02] MEDS: Donepezil HCl 10 MG Tablet PO (21:48)
[2017-10-02] MEDS: Atorvastatin Calcium 20 MG Tablet PO (21:49)
[2017-10-03] MEDS: oxyCODONE 5 MG Tablet 15 MG PO ×3 (00:48→16:58)
[2017-10-03] MEDS: Fluticasone/Salmeterol 232-14 Inhaler 1 PUFF IH ×2 (06:47→17:01)
[2017-10-03] MEDS: amLODIPine 5 MG Tablet PO (06:48)
[2017-10-03] MEDS: Loratadine 10 MG Tablet PO (06:48)
[2017-10-03] MEDS: DULoxetine Hcl 60 MG Capsule PO (06:48)
[2017-10-03] MEDS: Enoxaparin 40 MG/0.4 ML Syringe SC (06:48)
[2017-10-03] MEDS: Menthol/Lanolin/Calamine/Znox 113 GM Tube 1 APPLIC TOPICAL ×2 (06:50→16:59)
[2017-10-03] MEDS: Pregabalin 75 MG Capsule 150 MG PO ×2 (06:54→20:28)
[2017-10-03 07:26] LABS: Bedside Glucose 123 mg/dL (70-110)
[2017-10-03] MEDS: diazePAM 5 MG Tablet PO ×2 (07:55→21:46)
[2017-10-03] MEDS: Iron Polysaccharide Complex 150 MG CAPSULE PO (07:58)
[2017-10-03] MEDS: Insulin Lispro 100 UNIT/ML INSULN.PEN 10 UNIT SC ×3 (07:59→17:00)
[2017-10-03 11:40] LABS: Bedside Glucose 227 mg/dL (70-110)
[2017-10-03 15:51] VITALS: BP 97/54; PULSE 64; RESP 18; TEMP 36.7; O2SAT 91
[2017-10-03 17:15] LABS: Bedside Glucose 208 mg/dL (70-110)
[2017-10-03 21:26] LABS: Bedside Glucose 359 mg/dL (70-110)
[2017-10-03] MEDS: Donepezil HCl 10 MG Tablet PO (21:46)
[2017-10-03] MEDS: Atorvastatin Calcium 20 MG Tablet PO (21:46)
[2017-10-03] MEDS: traZODone 50 MG Tablet 150 MG PO (21:46)
[2017-10-04 04:56] VITALS: BP 123/63; PULSE 76
[2017-10-04] MEDS: oxyCODONE 5 MG Tablet 15 MG PO ×2 (04:57→20:21)
[2017-10-04] MEDS: amLODIPine 5 MG Tablet PO (05:00)
[2017-10-04] MEDS: DULoxetine Hcl 60 MG Capsule PO (05:00)
[2017-10-04] MEDS: Loratadine 10 MG Tablet PO (05:00)
[2017-10-04] MEDS: Enoxaparin 40 MG/0.4 ML Syringe SC (05:00)
[2017-10-04] MEDS: Polyethylene Glycol 3350 17 GM PACKET PO (05:00)
[2017-10-04] MEDS: Fluticasone/Salmeterol 232-14 Inhaler 1 PUFF IH ×2 (05:01→17:11)
[2017-10-04] MEDS: Menthol/Lanolin/Calamine/Znox 113 GM Tube 1 APPLIC TOPICAL ×2 (05:01→17:12)
[2017-10-04] MEDS: Pregabalin 75 MG Capsule 150 MG PO ×2 (07:10→17:10)
[2017-10-04 07:11] LABS: Bedside Glucose 220 mg/dL (70-110)
[2017-10-04] MEDS: Iron Polysaccharide Complex 150 MG CAPSULE PO (08:00)
[2017-10-04] MEDS: diazePAM 5 MG Tablet PO ×3 (08:00→22:07)
[2017-10-04] MEDS: Insulin Lispro 100 UNIT/ML INSULN.PEN 10 UNIT SC ×3 (08:01→17:12)
[2017-10-04 10:00] VITALS: PULSE 68; RESP 18; O2SAT 94
[2017-10-04 11:26] LABS: Bedside Glucose 270 mg/dL (70-110)
--- NOTE | 2017-10-04 14:05 | PCA ---
ANSHUL Blackman and I went in his room to get him on bedside comode, he was rocking side to side to get his shorts down and after getting them down, i was in front of him because he didnt have good balane, and hiral was to his side, he fell forward and i put my hand forward on his shoulder and my body in front of him and kept him from completely falling forward. he started yelling at me me not to hit him anymore. i said i didnt hit yoi, i kept you from falling on floor. Hiral said also i did not hit him, i kept him from falling. I told Maxine Odell and Rena.. He said i just shouldnt of hit.
[2017-10-04 15:35] VITALS: BP 112/58; PULSE 90; RESP 16; TEMP 35.7; O2SAT 91
--- NOTE | 2017-10-04 15:35 | NURSING ---
wound photo: left stump
--- NOTE | 2017-10-04 16:02 | CHAPLAIN ---
Type of Pastoral Visit ___ Initial Visit _x__ Follow-up Visit ___ On-call Visit ___ General Patient Visit ___ Spiritual Assessment ___ Family Conference ___ Bereavement ___ Rapid Response ___ Code Blue ___ Other (describe below) Pastoral Care Referral From _x__ Patient ___ Family ___ Nurse ___ Physician ___ Distribution Center Supervisor ___ Manager Asset Management ___ Other (describe below) Sacrament/Intervention _x__ Active listening ___ Anointing ___ Amish ___ Bereavement ___ Communion ___ Machelle exploration ___ ___ Life review ___ Prayer ___ Reconciliation ___ Sacrament of Sick ___ Supportive presence ___ Wedding ___ Other (describe below) Pastoral Comments assisted patient with cleaning glasses, getting ice, moving items in room at his request
--- NOTE | 2017-10-04 16:37 | NURSING ---
Resident rang out banquet set up person light and was hard to hear. This aide went back to resident's room to find out what he had been saying. Resident stated he could not find his small blue and white remote. This aide looked around room for remote and found it on resident's left side in his recliner. Placed remote on the bedside table and told resident where it was. Resident acted as though he did not understand what I said to him and was still looking for the remote. I reminded him where I told him I had placed it. Resident then said he did not have proper glasses so he could not see. I asked resident to call down to the kitchen to let them know what he would like for dinner. Resident said he had neuropathy and could not dial the number. I dialed the number for the resident and gave him the phone to speak with them. Resident became frustrated and threw the phone down on the floor. I picked up the phone, redialed, and told him it was ringing. Resident again threw the phone down on the floor. This aide left the room and returned with ANSHUL Roman as resident was beginning to become agitated and aggressive. Resident began saying no one could hear him and no one would help him and proceeded to rip his call light out of the wall and was throwing things from his tray table onto the ground. ANSHUL Moscoso tried to let resident know we were trying to help him but he needed to tell us what he needed help with. Resident continued to yell and at that point MAGNOLIA Nye came into room to speak with resident.
[2017-10-04 17:15] LABS: Bedside Glucose 193 mg/dL (70-110)
[2017-10-04] MEDS: Donepezil HCl 10 MG Tablet PO (20:21)
[2017-10-04] MEDS: Atorvastatin Calcium 20 MG Tablet PO (20:22)
[2017-10-04] MEDS: traZODone 50 MG Tablet 150 MG PO (20:22)
--- NOTE | 2017-10-04 20:24 | PCM.TCUNOT ---
Subjective: Resident seen in room, lying in bed. He had no pants on, and his genitals are clearly visible, does not seem to bother him. He is making a mess with his dinner tray, he touches sticky food, rubs his penis, scrotum then offers to shake my hand. Clearly, resident's mind is not normal. Nursing staff notes he is angry, and difficult to work with, he has been witnessed throwing coffee, throwing his TV remote control. He states he does not know why he is here on the TCU, I have told him numerous times it is because of the wound of his left BKA stump, that the wound needs to heal prior to him going home. It is like the movie Ground Day, I have the same conversation with him every time I see him. It does not help that he is on Diazepam, Duloxetine, Oxycodone, Trazodone, and Lyrica. He would benefit from Behavioral Health Program as outpatient, but this is not currently an option. Of note, he has pocket knife on his table, I have asked nursing staff to remove pocket knife for safe keeping until resident is discharged. Vitals/I&O's: Vital Signs Temp Pulse Resp BP Pulse Ox 96.3 F L 90 16 112/58 L 91 10/04/17 15:35 10/04/17 15:35 10/04/17 15:35 10/04/17 15:35 10/04/17 15:35 Oxygen Delivery Method Room Air Weight: 75.5 kg Body Mass Index (BMI) 25.7 Finger Stick Blood Glucose 204 Intake and Output for Last 24 Hours 10/02/17 10/03/17 10/04/17 23:59 23:59 23:59 Intake Total 1200 / 1200 1360 / 1360 720 / 720 Output Total 550 / 550 3400 / 3400 Balance 650 / 650 -2040 / -2040 720 / 720 Laboratory Results 10/03/17 21:17: POC Glucose 359 H 10/04/17 04:53: POC Glucose 220 H 10/04/17 11:18: POC Glucose 270 H 10/04/17 17:03: POC Glucose 193 H Past Medical History Past Medical History (Chronic Problems): Chronic Problems Osteomyelitis of left tibia (Chronic) Ulceration of below knee amputation stump (Chronic) nonhealing diabetic ulcer left BKA stump Complication of amputation stump of left lower extremity (Chronic) Chronic pain syndrome (Chronic) Chronic renal failure, stage 2 (mild) (Chronic) stage 2-3 Hyperlipidemia (Chronic) Allergic rhinitis (Chronic) Polyneuropathy (Chronic) Insomnia (Chronic) Depression (Chronic) Traumatic brain injury (Chronic) Status post bilateral below knee amputation (Chronic) Type 2 diabetes mellitus (Chronic) poorly controlled Hypertension (Chronic) Allergies gabapentin [From Neurontin] Allergy (Verified 09/23/17 06:47) Other morphine Adverse Reaction (Verified 09/23/17 06:47) CAUSES FLASH BACKS- PTSD Home Medications: Ambulatory Orders Medication Instructions Recorded Amlodipine [Norvasc] 5 mg PO DAILY 09/03/17 Atorvastatin Calcium 20 mg PO QHS 09/03/17 Donepezil HCl 10 mg PO DAILY 09/03/17 Duloxetine HCl 60 mg PO DAILY 09/03/17 Fluticasone/Salmeterol [Advair 1 each IH BID 09/03/17 100-50 Diskus] Loratadine 10 mg PO DAILY 09/03/17 Pregabalin [Lyrica] 150 mg PO BID 09/03/17 Trazodone HCl 150 mg PO QHS 09/03/17 Valsartan [Diovan] 320 mg PO DAILY 09/03/17 Amoxicillin/Potassium Clav 1 each PO BID 09/10/17 [Augmentin 875-125 Tablet] Insulin Detemir [Levemir FlexPen] 14 units SC QHS 09/10/17 Oxycodone [Oxyir] 15 mg PO Q4H PRN PRN #1 tablet 09/10/17 Surgical History: cataract, - - Bilateral below knee amputation. Psychiatric History: Anxiety, Depression Lives: With Family - Lives with brother, but brother works and resident is often home alone. Smoking Status: Former smoker Tobacco Use: Non-smoker Alcohol: Occasional Drugs: None - *Family History Maternal History Items: No pertinent history Paternal History Items: No pertinent history Review of Systems Constitutional: Denies: Chills, Fever, Weight Change HEENT: Denies: Head Aches, Sinus Congestion, Sinus Drainage Cardiovascular: Denies: Chest Pain, Palpitations Respiratory: Denies: Cough, Shortness of breath at rest, Sputum production Gastrointestinal: Denies: Abdominal Pain, Nausea, Vomiting Genitourinary: Denies: Dysuria Musculoskeletal: Denies: Joint Pain, Joint Tenderness Skin: Denies: Rash, Wounds Neurological: Denies: Numbness, Tingling, Focal weakness Psychiatric: Reports: Anxiety, Depression, - - Frustration.. Denies: Homicidal Ideations, Suicidal Ideations Hematologic/ Lymphatic: Denies: Easy Bruising, Easy Bleeding Patient Problems: Active and Suspected Problems Fall (Acute) - Physical Exam General: Alert, Oriented x3, Cooperative HEENT: Atraumatic, PERRLA, EOMI, Normocephalic Neck: Supple, No JVD, Negative Carotid Bruits Lungs: Clear to auscultation, Normal air movement Cardiovascular: Regular rate, No murmurs Abdomen: Bowel Sounds Present, Soft, Non Tender Extremities: No edema, Capillary Refill Less than 3 Seconds, - - Bilateral below the knee amputation. Skin: No rashes, Ulcer/ Wound - Left BKA stump, wound vac, dressed. Musculoskeletal: No Tenderness to Palpation of Joints or Extremities Neurological: Cranial nerves II-XII grossly intact Psych/Mental Status: Normal Affect, Appropriate Vital Signs Temp Pulse Resp BP Pulse Ox 96.3 F L 90 16 112/58 L 91 10/04/17 15:35 10/04/17 15:35 10/04/17 15:35 10/04/17 15:35 10/04/17 15:35 Oxygen Delivery Method Room Air Weight: 75.5 kg Body Mass Index (BMI) 25.7 Finger Stick Blood Glucose 204 Intake and Output for Last 24 Hours 10/02/17 10/03/17 10/04/17 23:59 23:59 23:59 Intake Total 1200 / 1200 1360 / 1360 720 / 720 Output Total 550 / 550 3400 / 3400 Balance 650 / 650 -2040 / -2040 720 / 720 POC Glucose 10/04/17 10/04/17 10/04/17 17:03 11:18 04:53 POC Glucose 193 H 270 H 220 H 10/03/17 21:17 POC Glucose 359 H Assessment/Plan All Active Problems Abscess of left knee (Acute) Infection of amputation stump of left lower extremity (Acute) Hematoma of amputation stump of left lower extremity (Acute) Cellulitis and abscess of left leg (Acute) Fall (Acute) 62 year old male with below past medical history hospitalized originally for fci placement, complicated by left below the knee amputation stump abscess, requiring incision, drainage 09/07/[address] Andrew admitted to TCU with debility, her for rehabilitation, strengthening, wound care, prior to disposition determination. Debility - PT/OT. Pain - Tylenol 1000MG Q8H PRN mild pain, Oxycodone 5MG Q6H PRN moderate pain. Bowel - Miralax 17GM daily, Senna/colace 2 tablets BID, Dulcolax 10MG PO daily PRN. Pneumonia vaccination - Administer Prevnar 13 and/or Pneumovax 23 as necessary. DVT prophylaxis - Lovenox 40MG SC daily. Hypertension - Valsartan 320MG daily, Stop Amlodipine 5MG, blood pressure on low side. Left inikp-rup-deqa stump infection - Augmentin 875MG BID stopped. Hyperlipidemia - Increase Atorvastatin to 40MG QHS. Depression/Chronic pain - Taper off Duloxetine 30MG daily x 3 days, then stop. Anxiety - Diazepam 5MG Q6H PRN, Rx Paroxetine 40MG HQS. Traumatic Brain Injury - Donepezil 10MG QHS off label. Shortness of breath - Advair 1 puff inhaled Q12H. Diabetes Mellitus II - Lantus 15 units BID, Humalog 10 units TID. Iron deficiency anemia - Ferrex 150MG daily. Allergic Rhinitis - Stop Loratadine 10MG daily. Neuropathic pain - Lyrica 150MG twice daily. Insomnia - Lower Trazodone to 100MG QHS.
--- NOTE | 2017-10-04 20:34 | PN_ITS ---
Subjective: Resident seen in room, lying in bed. He had no pants on, and his genitals are clearly visible, does not seem to bother him. He is making a mess with his dinner tray, he touches sticky food, rubs his penis, scrotum then offers to shake my hand. Clearly, resident's mind is not normal. Nursing staff notes he is angry, and difficult to work with, he has been witnessed throwing coffee, throwing his TV remote control. He states he does not know why he is here on the TCU, I have told him numerous times it is because of the wound of his left BKA stump, that the wound needs to heal prior to him going home. It is like the movie Ground Day, I have the same conversation with him every time I see him. It does not help that he is on Diazepam, Duloxetine, Oxycodone, Trazodone, and Lyrica. He would benefit from Behavioral Health Program as outpatient, but this is not currently an option. Of note, he has pocket knife on his table, I have asked nursing staff to remove pocket knife for safe keeping until resident is discharged. Vitals/I&O's: Vital Signs Temp Pulse Resp BP Pulse Ox 96.3 F L 90 16 112/58 L 91 10/04/17 15:35 10/04/17 15:35 10/04/17 15:35 10/04/17 15:35 10/04/17 15:35 Oxygen Delivery Method Room Air Weight: 75.5 kg Body Mass Index (BMI) 25.7 Finger Stick Blood Glucose 204 Intake and Output for Last 24 Hours 10/02/17 10/03/17 10/04/17 23:59 23:59 23:59 Intake Total 1200 / 1200 1360 / 1360 720 / 720 Output Total 550 / 550 3400 / 3400 Balance 650 / 650 -2040 / -2040 720 / 720 Laboratory Results 10/03/17 21:17: POC Glucose 359 H 10/04/17 04:53: POC Glucose 220 H 10/04/17 11:18: POC Glucose 270 H 10/04/17 17:03: POC Glucose 193 H Past Medical History Past Medical History (Chronic Problems): Chronic Problems Osteomyelitis of left tibia (Chronic) Ulceration of below knee amputation stump (Chronic) nonhealing diabetic ulcer left BKA stump Complication of amputation stump of left lower extremity (Chronic) Chronic pain syndrome (Chronic) Chronic renal failure, stage 2 (mild) (Chronic) stage 2-3 Hyperlipidemia (Chronic) Allergic rhinitis (Chronic) Polyneuropathy (Chronic) Insomnia (Chronic) Depression (Chronic) Traumatic brain injury (Chronic) Status post bilateral below knee amputation (Chronic) Type 2 diabetes mellitus (Chronic) poorly controlled Hypertension (Chronic) Allergies gabapentin [From Neurontin] Allergy (Verified 09/23/17 06:47) Other morphine Adverse Reaction (Verified 09/23/17 06:47) CAUSES FLASH BACKS- PTSD Home Medications: Ambulatory Orders Medication Instructions Recorded Amlodipine [Norvasc] 5 mg PO DAILY 09/03/17 Atorvastatin Calcium 20 mg PO QHS 09/03/17 Donepezil HCl 10 mg PO DAILY 09/03/17 Duloxetine HCl 60 mg PO DAILY 09/03/17 Fluticasone/Salmeterol [Advair 1 each IH BID 09/03/17 100-50 Diskus] Loratadine 10 mg PO DAILY 09/03/17 Pregabalin [Lyrica] 150 mg PO BID 09/03/17 Trazodone HCl 150 mg PO QHS 09/03/17 Valsartan [Diovan] 320 mg PO DAILY 09/03/17 Amoxicillin/Potassium Clav 1 each PO BID 09/10/17 [Augmentin 875-125 Tablet] Insulin Detemir [Levemir FlexPen] 14 units SC QHS 09/10/17 Oxycodone [Oxyir] 15 mg PO Q4H PRN PRN #1 tablet 09/10/17 Surgical History: cataract, - - Bilateral below knee amputation. Psychiatric History: Anxiety, Depression Lives: With Family - Lives with brother, but brother works and resident is often home alone. Smoking Status: Former smoker Tobacco Use: Non-smoker Alcohol: Occasional Drugs: None - *Family History Maternal History Items: No pertinent history Paternal History Items: No pertinent history Review of Systems Constitutional: Denies: Chills, Fever, Weight Change HEENT: Denies: Head Aches, Sinus Congestion, Sinus Drainage Cardiovascular: Denies: Chest Pain, Palpitations Respiratory: Denies: Cough, Shortness of breath at rest, Sputum production Gastrointestinal: Denies: Abdominal Pain, Nausea, Vomiting Genitourinary: Denies: Dysuria Musculoskeletal: Denies: Joint Pain, Joint Tenderness Skin: Denies: Rash, Wounds Neurological: Denies: Numbness, Tingling, Focal weakness Psychiatric: Reports: Anxiety, Depression, - - Frustration.. Denies: Homicidal Ideations, Suicidal Ideations Hematologic/ Lymphatic: Denies: Easy Bruising, Easy Bleeding Patient Problems: Active and Suspected Problems Fall (Acute) - Physical Exam General: Alert, Oriented x3, Cooperative HEENT: Atraumatic, PERRLA, EOMI, Normocephalic Neck: Supple, No JVD, Negative Carotid Bruits Lungs: Clear to auscultation, Normal air movement Cardiovascular: Regular rate, No murmurs Abdomen: Bowel Sounds Present, Soft, Non Tender Extremities: No edema, Capillary Refill Less than 3 Seconds, - - Bilateral below the knee amputation. Skin: No rashes, Ulcer/ Wound - Left BKA stump, wound vac, dressed. Musculoskeletal: No Tenderness to Palpation of Joints or Extremities Neurological: Cranial nerves II-XII grossly intact Psych/Mental Status: Normal Affect, Appropriate Vital Signs Temp Pulse Resp BP Pulse Ox 96.3 F L 90 16 112/58 L 91 10/04/17 15:35 10/04/17 15:35 10/04/17 15:35 10/04/17 15:35 10/04/17 15:35 Oxygen Delivery Method Room Air Weight: 75.5 kg Body Mass Index (BMI) 25.7 Finger Stick Blood Glucose 204 Intake and Output for Last 24 Hours 10/02/17 10/03/17 10/04/17 23:59 23:59 23:59 Intake Total 1200 / 1200 1360 / 1360 720 / 720 Output Total 550 / 550 3400 / 3400 Balance 650 / 650 -2040 / -2040 720 / 720 POC Glucose 10/04/17 10/04/17 10/04/17 17:03 11:18 04:53 POC Glucose 193 H 270 H 220 H 10/03/17 21:17 POC Glucose 359 H Assessment/Plan All Active Problems Abscess of left knee (Acute) Infection of amputation stump of left lower extremity (Acute) Hematoma of amputation stump of left lower extremity (Acute) Cellulitis and abscess of left leg (Acute) Fall (Acute) 62 year old male with below past medical history hospitalized originally for detention placement, complicated by left below the knee amputation stump abscess, requiring incision, drainage 09/07/[address] Andrew admitted to TCU with debility, her for rehabilitation, strengthening, wound care, prior to disposition determination. * Debility - PT/OT. * Pain - Tylenol 1000MG Q8H PRN mild pain, Oxycodone 5MG Q6H PRN moderate pain. * Bowel - Miralax 17GM daily, Senna/colace 2 tablets BID, Dulcolax 10MG PO daily PRN. * Pneumonia vaccination - Administer Prevnar 13 and/or Pneumovax 23 as necessary. * DVT prophylaxis - Lovenox 40MG SC daily. * Hypertension - Valsartan 320MG daily, Stop Amlodipine 5MG, blood pressure on low side. * Left pfkim-wgv-wczn stump infection - Augmentin 875MG BID stopped. * Hyperlipidemia - Increase Atorvastatin to 40MG QHS. * Depression/Chronic pain - Taper off Duloxetine 30MG daily x 3 days, then stop. * Anxiety - Diazepam 5MG Q6H PRN, Rx Paroxetine 40MG HQS. * Traumatic Brain Injury - Donepezil 10MG QHS off label. * Shortness of breath - Advair 1 puff inhaled Q12H. * Diabetes Mellitus II - Lantus 15 units BID, Humalog 10 units TID. * Iron deficiency anemia - Ferrex 150MG daily. * Allergic Rhinitis - Stop Loratadine 10MG daily. * Neuropathic pain - Lyrica 150MG twice daily. * Insomnia - Lower Trazodone to 100MG QHS.
[2017-10-04 21:16] LABS: Bedside Glucose 180 mg/dL (70-110)
--- NOTE | 2017-10-04 22:09 | NURSING ---
Pt extremely irritable, when asked for wristband to scan by this nurse pt ripped sheets off, blatantly exposing himself and grabbing this nurse with sticky hands, yelling I can't hear you. Explained to pt who was asking for pain medication of new orders, pt very unhappy and demanded to see nurse in charge. Pt says he has a 'hole in his back from you people, a bed sore' and was angry when nurse explained there are no open areas and celeste is currently being applied as skin protectant. RN aware of pt mood and behaviors. Given PRN valium 5mg per pt request. Continuing to monitor.
--- NOTE | 2017-10-04 22:12 | NURSING ---
New dose of lipitor 40mg not given tonight, 20mg dose given earlier this shift. RN aware.
[2017-10-05] MEDS: oxyCODONE 5 MG Tablet PO ×3 (05:12→20:42)
[2017-10-05] MEDS: Menthol/Lanolin/Calamine/Znox 113 GM Tube 1 APPLIC TOPICAL ×2 (05:13→18:47)
[2017-10-05] MEDS: DULoxetine Hcl 30 MG Capsule PO (05:13)
[2017-10-05] MEDS: Pregabalin 75 MG Capsule 150 MG PO ×2 (05:16→18:40)
[2017-10-05] MEDS: Enoxaparin 40 MG/0.4 ML Syringe SC (05:17)
[2017-10-05 07:06] LABS: Bedside Glucose 141 mg/dL (70-110)
--- NOTE | 2017-10-05 07:39 | MDS.RN ---
Information for the mds was obtained from review of the clinical record, interview of resident, staff, and direct observation of resident's care.
[2017-10-05] MEDS: Iron Polysaccharide Complex 150 MG CAPSULE PO (09:17)
[2017-10-05] MEDS: Insulin Lispro 100 UNIT/ML INSULN.PEN 10 UNIT SC ×3 (09:28→18:44)
[2017-10-05 11:46] LABS: Bedside Glucose 145 mg/dL (70-110)
--- NOTE | 2017-10-05 13:14 | CASEMGMT ---
Social Work Attempted to meet with resident in room in regards to meeting with Dr. Horn and discharge planning, resident was sleeping at this time. Will continue to follow. Dai HARTLEY, PNEUMATIC DRUM SANDER
[2017-10-05 15:09] VITALS: PULSE 80; RESP 18; O2SAT 92
--- NOTE | 2017-10-05 16:16 | NURSING ---
THIS NURSE IN PT ROOM HELPING AIDS TO TRANSFER PT TO BED SIDE. PT TAD WRAP TO LEFT KNEE STARTING TO COME OFF. TOLD PT I WOULD COME BACK TO FIX IT. WHEN THIS NURSE WENT BACK TO FIX TAD WRAP,THE WRAP WAS TOLDLY OFF AND PT WAS BLAMING AIDS THAT THEY RIPED IT OFF HIS KNEE AND DIDNT CARE. REWRAPED HIS KNEE. REPORTED TO MAGNOLIA PETERSON.
[2017-10-05 16:19] VITALS: BP 141/67; PULSE 76; RESP 18; TEMP 36.3; O2SAT 98
--- NOTE | 2017-10-05 16:41 | CASEMGMT ---
Social Work Spoke with resident in room. Resident not open to discuss discharge planning at this time. Resident frustrated with not being able to see channels on paper list. This social work program coordinator provided resident with a list of TV channels in bold and larger font. Resident thanked this social work program coordinator. Social work to continue to follow as needed. Will continue to follow. Dai HARTLEY, OUTREACH TEAM MEMBER
[2017-10-05 17:11] LABS: Bedside Glucose 298 mg/dL (70-110)
--- NOTE | 2017-10-05 17:15 | RAD_ITS ---
STUDY: X-RAY - ABDOMEN/PELVIS REASON FOR EXAM: Male, 62 years old. Diarrhea TECHNIQUE: AP supine and upright views of the abdomen and pelvis. COMPARISON: None. FINDINGS: There are several old right-sided rib fractures. There is an unremarkable bowel gas pattern. There is no demonstrated free abdominal air. The visualized liver, spleen and kidneys are grossly normal in size and morphology. Surgical clips are seen in the right groin and scrotal region. There are diffuse degenerative changes of the visualized lumbar spine. RAD/Abdomen Single View IMPRESSION: There is no evidence of ileus, obstruction, or free intraperitoneal air. There are degenerative changes of the visualized thoracolumbar spine. Electronically Signed: Darrel Perez MD at 17:35 EDT , Service support ,
--- NOTE | 2017-10-05 17:46 | NURSING ---
Pt c/o diarrhea today, Dr. Horn updated, N.O. for KUB and Imodium, pt aware.
[2017-10-05] MEDS: Loperamide 2 MG Capsule PO (18:40)
[2017-10-05] MEDS: Fluticasone/Salmeterol 232-14 Inhaler 1 PUFF IH (18:40)
[2017-10-05] MEDS: diazePAM 5 MG Tablet PO (20:42)
[2017-10-05] MEDS: Donepezil HCl 10 MG Tablet PO (20:43)
[2017-10-05] MEDS: Atorvastatin Calcium 40 MG Tablet PO (20:44)
[2017-10-05] MEDS: traZODone 50 MG Tablet 100 MG PO (20:44)
--- NOTE | 2017-10-05 20:47 | NURSING ---
Pt alert and oriented, very hyper and talkative, talking so much and not allowing nurse to answer or respond before jumping from topic to topic. 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 Stating a doctor from [facility] 'took my Allison and gutted her like a fish, ruined her life' then saying 'I'm trained to do one thing and one thing well and that's eliminate people, what do you know about that?' Becoming louder and more aggressive. 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 Did not puncture skin. Believes he will need another amputation and is demanding propofol to 'just kill myself'. Told pt not to do anything that could harm self and attempted to calm him down explaining color and temperature of leg was normal, he had removed TAD wrap and it was no longer on very tightly. Pt going back and forth from wanting tad wrap on to refusing it to be applied. Pt jumping from one topic to the next. Said 'once Allison gets word of this you'd better watch out she's one tough bitch and she'll kill any one of you have you met my daughter?' Attempts to redirect were unsuccessful. Pt given prn valium, oxyir 5mg and hs meds. Asked what they were, nurse explained. 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 Pt given fresh ice and pop, repositioned and encouraged to rest. Pt asked this nurse to stay in room with him and when he was told that is neither appropriate or an option he became irritated and said 'leave then just get out and leave me alone'. Before this nurse was out of room he said Stay I miss you already'. Pt inappropriate, all over the place, and unable to focus on one complete thought at a time. Both RNs on unit aware. Continuing to monitor.
[2017-10-05 21:06] LABS: Bedside Glucose 341 mg/dL (70-110)
[2017-10-06] MEDS: oxyCODONE 5 MG Tablet PO ×3 (03:25→19:14)
[2017-10-06] MEDS: DULoxetine Hcl 30 MG Capsule PO (06:53)
[2017-10-06] MEDS: Menthol/Lanolin/Calamine/Znox 113 GM Tube 1 APPLIC TOPICAL ×2 (06:53→19:16)
[2017-10-06] MEDS: Fluticasone/Salmeterol 232-14 Inhaler 1 PUFF IH ×2 (06:54→19:14)
[2017-10-06] MEDS: Enoxaparin 40 MG/0.4 ML Syringe SC (06:55)
[2017-10-06] MEDS: Pregabalin 75 MG Capsule 150 MG PO ×2 (06:57→19:14)
--- NOTE | 2017-10-06 07:02 | NURSING ---
Pt allowed this nurse to wrap left stump with new oswald wrap at this time. Did not help by holding up leg or even rolling onto back. Pt goes back and forth regarding medicine, earlier in night he was angry he only received one oxyir saying that did nothing to help pain. This morning pt stated 'wow those meds sure knocked me out' Pt was his usual in and out of sleep throughout the night, calling several times to have blankets moved, pillows moved and pain/anxiety meds. Pt currently resting quietly in bed, appears comfortable. Continuing to monitor.
[2017-10-06 07:16] LABS: Bedside Glucose 165 mg/dL (70-110)
--- NOTE | 2017-10-06 08:08 | NURSING ---
BEAU review by ZONIA Hunt at this time.
[2017-10-06] MEDS: Insulin Lispro 100 UNIT/ML INSULN.PEN 10 UNIT SC ×3 (09:54→19:18)
[2017-10-06] MEDS: Iron Polysaccharide Complex 150 MG CAPSULE PO (09:56)
[2017-10-06 12:00] LABS: Bedside Glucose 211 mg/dL (70-110)
[2017-10-06] MEDS: diazePAM 5 MG Tablet PO ×2 (12:25→21:16)
--- NOTE | 2017-10-06 13:17 | CASEMGMT ---
Brief interview for mental status (BIMS) and resident mood interview (PHQ-9) completed on this day. BIMS score 15/15. PHQ-9 score 10/15
--- NOTE | 2017-10-06 13:47 | CASEMGMT ---
Social Work Spoke with resident in room to collaborate on a discharge plan. Resident reporting to not be interested in transitioning to another facility at this time and is wanting to continue with further care and treatment on the Transitional Care Unit. Resident reporting to be frustrated with current situation. Verbal and emotional support provided. Social work to continue to follow as needed. Will continue to follow. Dai HARTLEY, CHISEL TRIMMER
--- NOTE | 2017-10-06 15:00 | PCA ---
Found patient standing up by his bed with his one prosthesis leg on. Patient fell back into his chair which was not locked. Tore the oswald wrap and bandages on his left leg(stump) which has a wound vac attached. Reminded patient to not be self transferring. Patient stated that he was told that he was allowed to transfer and walk in room by his self. MANAGER SPECIALTY aware
--- NOTE | 2017-10-06 15:37 | NURSING ---
Per wound care nurse, patient may shower with wound vac.
[2017-10-06 16:00] VITALS: BP 142/80; PULSE 83; RESP 18; TEMP 37.1; O2SAT 100
--- NOTE | 2017-10-06 16:17 | NURSING ---
ALBERTINA,WOUND NURSE CHANGED PT WOUND VAC AND DRESSING. AID CAME TO THIS NURSE SHORTLY AFTER AND REPORTED THAT THE PT TRYED TO PUT HIS OWN PAINTS ON AND WOULD NOT LET THE AID HELP HIM AND THE PT PULLED THE NEW DRESSING AND TAD WRAP OFF AND THEN TRYED TO STAND ON OWN FALLING BACK IN TO CHAIR REFUSING TO LET AID HELP HIM. THIS NURSE WENT INTO PT ROOM AND FOUND DRESSING AND TAD WRAP ON FLOOR. WOUND VAC STILL IN TACK. TOLD PT I CAN PUT THE DRESSING BACK ON IF HE WILL LET IT ON OR HE CAN KEEP IT OFF. PT STATED HE WAS PUTTING HIS PAINTS ON AND PULLED IT OFF CAUSE HE COULDN'T GET HIS PAINTS ON AND DIDN'T WANT ANY HELP. PT AGREED TO LET THIS NURSE PUT NEW DRESSING AND TAD WRAP BACK ON LEFT KNEE. ASKED PT IF WRAP WAS ON COMFORTABLE, PT STATED YES. REPORTED TO MAGNOLIA KIMBROUGH
[2017-10-06 17:11] LABS: Bedside Glucose 71 mg/dL (70-110)
[2017-10-06 19:05] LABS: Bedside Glucose 251 mg/dL (70-110)
--- NOTE | 2017-10-06 20:02 | NURSING ---
AT 1900 AIDS CAME TO THIS NURSE AND STATED PT WAS YELLING AND BLAMING THEM FOR PULLING HIS WOUND VAC TUBING OUT WHILE TRYING TO HELP TRANSFER PT TO BED SIDE COMMODE, WHICH PT REFUSED TO LET THEM. THIS NURSE WENT TO PT ROOM AND FOUND WOUND VAC PULLED OFF OF PT KNEE. PT STARTED YELLING AND CUSSING ABOUT THE AIDS PULLED HIS WOUND VAC OFF BY GETTING IT STUCK IN THE RECLINER WHEN HE WAS GOING TO THE BATH ROOM WHEN HE TOLD THEM HE DIDNT WANT ANY HELP TRANSFERRING. PT STATED THEM DUMB FAT BITCHES WERE LAUGHING AT ME CAUSE I GOT MY KNEE STUCK IN THE COMMODE AND I TOLD THEM NOT TO GRAB ME CAUSE I WASNT FALLING AND ITS THERE FAULT THE TUBING FELL OFF NOT MINE, YOUR LEADER THAT IS RAH SAID I CAN DO THINGS FOR MY SELF AND GET UP WHEN I WANT, CAUSE IF I CANT KYRIE NEVER GOING TO GET BETTER,I DO THIS ALL THE TIME ON MY OWN AND I DONT WANT ANYONE TOUCHING ME OR IN MY ROOM THERE A BUNCH OF LIARS. THIS NURSE TRYED TO CALM PT DOWN AND STATED I WOULD TALK TO THE AIDS. PT CONTINUED TO CUSS AT THIS NURSE ABOUT EVERYTHING. THIS NURSE STATED TO PT I WILL REAPPLY THE WOUND VAC BUT HE MUST BE CAREFUL WHEN MOVING AROUND SO HE DONT DISCONNECT THE WOUND VAC. PT STATED IT WASNT HIS FAULT IT WAS THOSE LIARS. PT CONTINUED TO KEEP MOVING AROUND AND FLIPPING THE FOOT REST OF THE RECLINER UP AND DOWN. THIS NURSE ASKED PT IF HE WOULD HELP ME OUT WHILE I REAPPLY THE WOUND VAC. PT AGREED AND STOPPED MOVING AROUND. THIS NURSE GOT WOUND VAC TO SEAL AND RUNNING AGAIN,DRESSING AND TAD WRAP REAPPLIED. PT STAYED IN RECLINER WITH LEGS UP AND STATED, TELL THOSE LIARS TO STAY OUT OF MY ROOM. THIS NURSE REMINDED PT TO PLEASE BE CAREFUL WHEN MOVEING AROUND. PT STATED OK. THIS NURSE THEN LEFT ROOM. REPORTED TO MAGNOLIA KIMBROUGH
[2017-10-06] MEDS: traZODone 50 MG Tablet 100 MG PO (21:12)
[2017-10-06] MEDS: Donepezil HCl 10 MG Tablet PO (21:13)
[2017-10-06] MEDS: Atorvastatin Calcium 40 MG Tablet PO (21:13)
[2017-10-06 21:20] LABS: Bedside Glucose 421 mg/dL (70-110)
[2017-10-06 21:43] VITALS: PULSE 78; RESP 18; O2SAT 98
[2017-10-07] MEDS: Menthol/Lanolin/Calamine/Znox 113 GM Tube 1 APPLIC TOPICAL ×2 (05:37→17:15)
[2017-10-07] MEDS: Pregabalin 75 MG Capsule 150 MG PO ×2 (05:38→17:15)
[2017-10-07] MEDS: DULoxetine Hcl 30 MG Capsule PO (05:39)
[2017-10-07] MEDS: Fluticasone/Salmeterol 232-14 Inhaler 1 PUFF IH ×2 (05:40→17:14)
[2017-10-07] MEDS: Enoxaparin 40 MG/0.4 ML Syringe SC (05:41)
[2017-10-07 07:06] LABS: Bedside Glucose 204 mg/dL (70-110)
[2017-10-07] MEDS: Insulin Lispro 100 UNIT/ML INSULN.PEN 10 UNIT SC ×3 (08:09→17:14)
[2017-10-07] MEDS: Iron Polysaccharide Complex 150 MG CAPSULE PO (08:09)
[2017-10-07 10:00] VITALS: PULSE 82; RESP 18; O2SAT 95
[2017-10-07 11:25] LABS: Bedside Glucose 194 mg/dL (70-110)
--- NOTE | 2017-10-07 11:45 | NURSING ---
This nursing was standing next to room 5 when patient shouted out that he was falling and this nurse immediately went into patients room and patient was found on the floor. Did hear sound that gave impression he hit his head on the wall, patient confirms this happened. This nurse then asked for assistance and MAGNOLIA Resendiz and MAGNOLIA Ordaz came to bedside. Astrid began performing assessment and obtained vital signs.
--- NOTE | 2017-10-07 12:43 | NURSING ---
Addendum entered by Katalina Heredia 10/07/17 17:20: Patient's daughter, Pushpa, updated. Original Note: Per patient's nurse, patient fell out of chair onto floor. Upon entering room, patient laying on floor with pants down. Patient yelling out at staff when attempting to ask patient what happened. Patient assisted to recliner x3 assist with gait belt. Patient states he hit his forehead on the floor and is complaining of ringing in ears and neck pain. PERRL. BP 124/76, 83, 95% RA, 18. Patient states he was sitting on armrest of recliner to use the urinal when he attempted to stand up and pull his pants up he fell forward and hit his head on the floor. Patient's call light was no on . When asked why he did not choose to ask for help patient stated I do this by myself all the time. Attempted to educate patient on importance of using call light to ask for help with toileting and transfers, patient became irritated and angry and did not want to listen to education. Dr. Horn made aware, NO for CT of head without contrast. Patient given call light and encouraged to use.
[2017-10-07] MEDS: oxyCODONE 5 MG Tablet PO (13:09)
--- NOTE | 2017-10-07 13:59 | RAD_ITS ---
STUDY: X-RAY - RIGHT ELBOW REASON FOR EXAM: Male, 62 years old. Pain after a fall TECHNIQUE: 2 view(s) of the elbow. COMPARISON: None. FINDINGS: Normal visualized humerus, radius and ulna. Normal radiocapitellar and ulnotrochlear articulations. There is a likely avulsion fracture of a triceps insertion spur on the posterior ulna with swelling of the post ulnar bursa Vascular calcifications. RAD/Elbow 2 Views IMPRESSION: There is a prominent triceps insertion spur upon the posterior ulna which I suspect has been fractured after the fall. There is associated bursal swelling No demonstrated fracture or elbow arthrosis Vascular calcifications Electronically Signed: Lake Collado MD at 16:14 EDT , Service support ,
--- NOTE | 2017-10-07 13:59 | RAD_ITS ---
STUDY: X-RAY - RIGHT SHOULDER REASON FOR EXAM: Male, 62 years old. Pain after a fall TECHNIQUE: 2 view(s) of the shoulder. COMPARISON: None. FINDINGS: There is mild degenerative arthrosis of the glenohumeral articulation. There is degenerative arthrosis of the acromioclavicular joint without inferior osseous spur formation. Normal acromion. Normal humeral head and visualized proximal humerus. The soft tissue structures are unremarkable. Normal visualized pulmonary apex. RAD/Shoulder min 2 Views IMPRESSION: Arthrosis, no demonstrated fracture or aggressive osseous lesion Electronically Signed: Lake Collado MD at 16:12 EDT , Service support ,
--- NOTE | 2017-10-07 14:02 | NURSING ---
Patient has c/o right shoulder and elbow pain. Dr. Horn made aware, NO for xray of right shoulder and elbow.
--- NOTE | 2017-10-07 14:30 | CASEMGMT ---
Social Work SW met with Jayashree Tobin RN CM from [facility] ([phone]), who is here to see pt. Information obtained regarding pt home services. Pt was approved for the [facility] Home Waiver Program on 08/18/17. Pt does have a passenger service representative at [facility], Vashti Deepthi. Prior to hospitalization pt was receiving 6 hours per week of home health aids through [facility] and a nurse visit 2x per week. (Jayashree states she may be able to increase the hours) He did receive 14 meals per week and a medical alert system was pending prior to hospitalization. [facility] does provide needed transportation and provides incontinent supplies, a rollator and a wheel chair. Pt lives with his brother in a mobile home and it is uncertain how many steps in. Pt brother does work during the day and assists pt in the evenings with IADLs such as laundry and cleaning. NAEEM Walsh
[2017-10-07 16:00] VITALS: BP 125/54; PULSE 77; RESP 16; TEMP 36.7; O2SAT 94
--- NOTE | 2017-10-07 16:05 | PCA ---
This PLATE PUT IN WORKER and PLATE PUT IN WORKER Arlin were in room assisting patient to bed from chair. Patient stated that an RN and CNC MANAGER ripped out his wound vac cord. Patient didn't specify when this happened. Wound vac and oswald wrap was still in tact when we were in room. Nursing notified
--- NOTE | 2017-10-07 17:08 | NURSING ---
This nurse and [employer], Arlin, toileted patient. Patient would not allow this nurse or [employer] to assist him to wheelchair, would only allow us to standby and adjust his wound vac cord. Patient put on toilet and given privacy. Rang call light when finished, when entering room patient states he was done. He asked this nurse to help him clean up and put Calmoseptine on his buttocks. Patient assisted. Patient transferred self to wheelchair reiterating to [employer] and this nurse to not touch him during transfer. Assisted to recliner and call light and bedside table put within reach. During transfer patient began complaining about staff and numerous other issues, stating just wait until my daughter gets here Wednesday, you think I am bad, she is a nasty a b, she will make sure things get done.
[2017-10-07 17:20] LABS: Bedside Glucose 131 mg/dL (70-110)
--- NOTE | 2017-10-07 18:55 | NURSING ---
Addendum entered by Katalina Heredia 10/07/17 19:01: message left for Pushpa, patient's daughter regarding Xray. Original Note: Dr. Horn reviewed xrays, NO for consult for Dr. Prado r/t right elbow fracture.
[2017-10-07] MEDS: Atorvastatin Calcium 40 MG Tablet PO (20:01)
[2017-10-07] MEDS: Donepezil HCl 10 MG Tablet PO (20:01)
[2017-10-07] MEDS: traZODone 50 MG Tablet 100 MG PO (20:01)
[2017-10-07] MEDS: diazePAM 5 MG Tablet PO (20:03)
[2017-10-07 23:01] LABS: Bedside Glucose 275 mg/dL (70-110)
--- NOTE | 2017-10-07 23:03 | NURSING ---
pt has a lump on the upper part of his back 2.5cm x 1.5cm pt states that it has always been there. no redness or drainage noted during this time.
--- NOTE | 2017-10-07 23:13 | NURSING ---
Addendum entered by Yue Ambrose 10/08/17 07:20: This nurse was in room and witnessed HERSON Gregory telling patient what medication he was going to be given and patient agreeing to taking those meds. After meds were given, and being transferred to toilet patient upset that he was given the trazodone and stated that he did not want the trazodone. When explained to patient that she had explained to him what he was be given and that he was he seemed to calm down a bit and stated that he wants it at 10 pm. After patient was in bed, patient stated that I got one aide fired and 2 aides suspended. Care given to patient. Patient appreciative of care. Original Note: Addendum entered by Bri Castillo 10/08/17 01:21: MAGNOLIA Kunz was in the room and is aware that the pt stated that he want trazodone to be given at 10 pm. Original Note: pt was given hs meds tonight while transferring him to the [facility] with a RN in the room help pt stated did you give me my trazodone yet. this nurse stated yes do you remember me going over your meds before i gave them to you. he states that he know that i gave him his meds and that he has a hard time hearing sometimes. but would like to have trazodone at 10 pm at night so he doesn't fall the sleep early.
[2017-10-08] MEDS: Pregabalin 75 MG Capsule 150 MG PO ×2 (06:29→18:41)
[2017-10-08] MEDS: Fluticasone/Salmeterol 232-14 Inhaler 1 PUFF IH ×2 (06:29→18:37)
[2017-10-08] MEDS: Senna/Docusate Sodium 1 Tablet 2 TABLET PO (06:30)
[2017-10-08] MEDS: DULoxetine Hcl 30 MG Capsule PO (06:30)
[2017-10-08] MEDS: Enoxaparin 40 MG/0.4 ML Syringe SC (06:35)
[2017-10-08] MEDS: Menthol/Lanolin/Calamine/Znox 113 GM Tube 1 APPLIC TOPICAL ×2 (06:36→18:38)
[2017-10-08 07:15] LABS: Bedside Glucose 150 mg/dL (70-110)
--- NOTE | 2017-10-08 10:00 | NURSING ---
This nurse along with MAGNOLIA Moscoso went into R' room to assist with toileting. He had just had a bm in the bed. Complained about getting stool softeners which we reported to Shaka Darden RN and administered Imodium. We assisted him to the BSC, wiped his bed down and put clean linens on. He complained about all the other staff not knowing anything, exhibiting a flight of ideas, and agitation that varies moment to moment. Assisted therapy with transfer to shower for continue of care with therapy.
[2017-10-08] MEDS: Insulin Lispro 100 UNIT/ML INSULN.PEN 10 UNIT SC ×2 (10:10→13:56)
[2017-10-08] MEDS: Loperamide 2 MG Capsule PO (10:16)
[2017-10-08 11:15] LABS: Bedside Glucose 250 mg/dL (70-110)
--- NOTE | 2017-10-08 11:41 | NURSING ---
Spoke with medical office receptionist at Dr. Prado's office, she is going to talk with Dr. Prado who is in the hospital today and see if she is willing to come see patient on the unit. States she will call back with definite answer.
[2017-10-08] MEDS: oxyCODONE 5 MG Tablet PO ×2 (11:59→18:36)
--- NOTE | 2017-10-08 12:16 | NURSING ---
Sravan called in regards to Dr Arteaga consult order. He states she reviewed residents xrays and does not feel like resident will need surgery and he can follow up in her office next week. Hospital can call Ángela or Maria T to make appointment.
[2017-10-08] MEDS: Iron Polysaccharide Complex 150 MG CAPSULE PO (12:31)
--- NOTE | 2017-10-08 15:37 | PCA ---
CLIMBING GUIDE Hiral and I were in his room , we just got done with him using comode, he was back in his wheelchair and wanted to get in his recliner chair. When he went to get in he started to fall forward and i by reaction reached for the band of his pants to keep him from falling, to make sure he was safe and in chair, He yelled at me that i grabbed him, and i told him I kept him from falling. and he said you shouldnt of grabbed me, and i said sorry, i was keeping you from falleing, Hiral was right there and she too seen he was about to fall.
[2017-10-08 16:00] VITALS: BP 132/78; PULSE 84; RESP 20; TEMP 36.3; O2SAT 91
[2017-10-08 17:05] LABS: Bedside Glucose 61 mg/dL (70-110)
[2017-10-08 17:20] LABS: Bedside Glucose 82 mg/dL (70-110)
--- NOTE | 2017-10-08 18:53 | NURSING ---
Wound vac dressing removed for patient to leave unit for visit, wet to dry dressing applied. Patient left unit with daughter via wheelchair for visit, signed out at desk, Dr Horn aware.
--- NOTE | 2017-10-08 22:00 | NURSING ---
Pt returned from dinner with daughter and daughter's significant other. BILLBOARD POSTER HELPER and this nurse assisted pt bed. Prosthetic removed. Pillows placed per pt request. Ice pitcher filled. RN attempted to place blue safety mats beside bed, pt yelled, NO, NO, I don't want those! Daughter at bedside. This nurse reminded pt he has had three falls while on TCU and he mats are for his safety. Pt began yelling at this nurse. Daughter also tired to talk to pt about the mats being for safety, pt continued to refuse. Pt pointed finger at this nurse and stated, Write pt refused and pt refused is over a Dr's order. Call light within reach. Bedrails X2.Bed low position. Pt denied further needs prior to leaving room.
[2017-10-08 22:16] LABS: Bedside Glucose 452 mg/dL (70-110)
--- NOTE | 2017-10-08 22:52 | NURSING ---
dr. Horn updated on BS. New order to give unscheduled dose on 10units Humalog.
[2017-10-08] MEDS: Donepezil HCl 10 MG Tablet PO (23:16)
[2017-10-08] MEDS: traZODone 50 MG Tablet 100 MG PO (23:17)
[2017-10-08] MEDS: Atorvastatin Calcium 40 MG Tablet PO (23:17)
--- NOTE | 2017-10-08 23:56 | NURSING ---
After pt returned from [place] with family his Blood glucose was 452. Notified Dr. Horn, ordered to given scheduled lantus and 10 additional units of Humalog. Pt refused to take humalog states it was drop is blood sugar too quick tonight. Pt also refused to allow RN to replace wound vac at this time. He wants to sleep and agreed to allow RN to place vac dressing in AM.
--- NOTE | 2017-10-09 01:11 | NURSING ---
This nurse and DEEP TISSUE MASSAGE THERAPIST into answer pts call light. Pt stumbling over words and speech is garbled. Pt trying to place urinal back on trash can and almost spilling it. DEEP TISSUE MASSAGE THERAPIST took urinal to empty it. Nurse asked pt if there was anything else he needed pt mumbling over words and stated No in between. DEEP TISSUE MASSAGE THERAPIST and nurse went to leave room and pt called DEEP TISSUE MASSAGE THERAPIST back to bed. Pt stumbling over words and staff unable to understand what pt is stating. This nurse asked pt to slow down and concentrate on what he is trying to stay. Pt then states clearly I have a brain injury I can speak how I want!!. Pt than states I need this pillow adjusted! very rude with staff. Pillow was adjusted and trash can was placed closer to bed. Pt then looks directly at this nurse and states So what's with an RN doing an aides job? This nurse stating that we all work together and we are capable of helping with pt care. this nurse then asked pt if there was anything else he needed. Pt turned over in bed and was stumbling over words making no sense. Pt was left resting in bed with call light in reach.
[2017-10-09] MEDS: Pregabalin 75 MG Capsule 150 MG PO ×2 (06:50→19:19)
[2017-10-09] MEDS: Fluticasone/Salmeterol 232-14 Inhaler 1 PUFF IH ×2 (06:51→19:15)
[2017-10-09] MEDS: Enoxaparin 40 MG/0.4 ML Syringe SC (06:51)
[2017-10-09] MEDS: Menthol/Lanolin/Calamine/Znox 113 GM Tube 1 APPLIC TOPICAL ×2 (06:58→19:15)
[2017-10-09 07:15] LABS: Bedside Glucose 210 mg/dL (70-110)
[2017-10-09 08:44] LABS: Absolute Lymphocyte Count 1.47 X10^3/ul (0.83-4.51); Absolute Neutrophil Count 2.9 X10^3/uL (2.0-7.7); Basophil# 0.02 X10^3/uL; Basophil% 0.4 % (0-1); Eosinophil# 0.19 X10^3/uL; Eosinophils% 3.8 % (0-5); Hematocrit 27.2 % (40-54); Hemoglobin 9.1 g/dl (13.0-16.5); Lymphocyte # 1.47 X10^3/ul (4.0); Lymphocyte % 29.3 % (19-41); Mean Corp Hgb Conc 33.5 g/gl (32-36); Mean Corpuscular Hgb 30.7 pg (27.0-32.0); Mean Corpuscular Volume 91.9 fL (80-94); Mean Platelet Vol. 9.5 fl (6.2-12.0); Monocyte# 0.45 X10^3/uL; Neutrophil # 2.88 X10^3/uL (2.7-7.7); Neutrophil % 57.5 % (47-70); Platelet Count 315 K/mm3 (150-450); RBC Distribution Width CV 12.3 % (11.6-14.6); RBC Distribution Width SD 40.1 fl (35.1-43.9); Red Blood Count 2.96 M/mm3 (4.6-6.2)
[2017-10-09 08:46] LABS: POSITIVE COUNT NO; POSITIVE DIFFERENTIAL NO; POSITIVE MORPHOLOGY NO
[2017-10-09 08:59] LABS: Anion Gap 5 (5-15); BUN 31 mg/dL (7-18); Calcium,Total 8.7 mg/dL (8.5-10.1); Chloride 108 mmol/L (98-107); Creatinine, Serum 1.07 mg/dL (0.70-1.30); EST Glomerular Filtration Rate 74 mL/min (>60); Est Glom Filt Rate - Afr Amer 90 mL/min (>60); Estimated Creatinine Clearance 76.24 ml/min; Glucose 198 mg/dL (74-106); Potassium 4.7 mmol/L (3.5-5.1); Sodium Level 141 mmol/L (136-145)
[2017-10-09] MEDS: Insulin Lispro 100 UNIT/ML INSULN.PEN 10 UNIT SC ×3 (09:47→20:44)
[2017-10-09] MEDS: Iron Polysaccharide Complex 150 MG CAPSULE PO (09:51)
[2017-10-09 11:50] LABS: Bedside Glucose 132 mg/dL (70-110)
--- NOTE | 2017-10-09 12:35 | NURSING ---
Dr. Horn reviewed AM labs, NNO
[2017-10-09] MEDS: oxyCODONE 5 MG Tablet PO ×2 (13:10→19:26)
[2017-10-09] MEDS: diazePAM 5 MG Tablet PO (15:12)
--- NOTE | 2017-10-09 15:21 | NURSING ---
THIS NURSE REINFORCED PT WOUND VAC. THERAPY IN ROOM TO HELP TRANSFER PT. THERAPY ASKED PT TO PLEASE TRY HER WAY TO TRANSFER TO RECLINER. PT REFUSED AND STATED KYRIE DOING IT MY WAY,I HAVE BEEN DOING IT FOR YEARS. PT TRANSFERRED SELF WITH THIS NURSE AND THERAPY IN ROOM. THERAPY WANTED PT TO REMOVE PROSTATIC LEG. PT GOT IRATE AND STATED HE WAS NOT TAKING IT OFF. REPORTED TO MAGNOLIA PETERSON
[2017-10-09 15:35] VITALS: PULSE 71; RESP 18; O2SAT 91
[2017-10-09 16:00] VITALS: BP 101/55; PULSE 70; RESP 18; TEMP 36.9; O2SAT 91
[2017-10-09 17:20] LABS: Bedside Glucose 149 mg/dL (70-110)
[2017-10-09] MEDS: Senna/Docusate Sodium 1 Tablet 2 TABLET PO (19:16)
--- NOTE | 2017-10-09 19:32 | NURSING ---
THIS NURSE ASKED PT AT 1730 IF HE WAS GOING TO EAT SUPPER OR IF HE ORDERED. PT REPLIED, KYRIE NOT EATING ANYTHING TONIGHT. WENT BACK AT 1830 AND PT IS WANTING SOMETHING TO EAT. AIDS GETTING MEAL FOR PT. REPORTED TO MAGNOLIA PETERSON
[2017-10-09 19:41] LABS: Bedside Glucose 99 mg/dL (70-110)
--- NOTE | 2017-10-09 19:51 | NURSING ---
Addendum entered by Bri Castillo 10/09/17 19:55: Nurse kahlil Kunz Rn aware of the situation Original Note: Pt states that he has been self transferring himself all day because no aides are allowed to help him. Nurse educated pt on using call light for help to be transferred or help getting to the toliet and how unsafe it is to be self transferring himself. Pt has been given dinner at this time also. Pt has been refusing alarm, hi-low bed, mats d/t previous falls. Pt also states wheelchair is broken.
[2017-10-09] MEDS: Atorvastatin Calcium 40 MG Tablet PO (20:34)
[2017-10-09] MEDS: Donepezil HCl 10 MG Tablet PO (20:35)
[2017-10-09] MEDS: traZODone 50 MG Tablet 100 MG PO (20:35)
[2017-10-09 20:56] LABS: Bedside Glucose 214 mg/dL (70-110)
--- NOTE | 2017-10-09 21:45 | NURSING ---
this nurse reinforce the drsg to wound vac at this time. wound vac hose catch on the side of bed and detached.
[2017-10-10] MEDS: Senna/Docusate Sodium 1 Tablet 2 TABLET PO (05:55)
[2017-10-10] MEDS: Pregabalin 75 MG Capsule 150 MG PO ×2 (05:55→17:27)
[2017-10-10] MEDS: Enoxaparin 40 MG/0.4 ML Syringe SC (05:57)
[2017-10-10] MEDS: Menthol/Lanolin/Calamine/Znox 113 GM Tube 1 APPLIC TOPICAL ×2 (06:01→17:22)
[2017-10-10] MEDS: Fluticasone/Salmeterol 232-14 Inhaler 1 PUFF IH ×2 (06:02→17:23)
[2017-10-10 07:16] LABS: Bedside Glucose 101 mg/dL (70-110)
--- NOTE | 2017-10-10 07:35 | NURSING ---
THIS NURSE IN PT ROOM AND PT TALKING TO DAUGHTER ON PHONE. PT HAD ME LOOK FOR HIS WALLET,COULD NOT FIND IT . PT ASKED DAUGHTER IF SHE HAD IT. DAUGHTER STATED TO PT YES AND I ALSO TALKED TO DAUGHTER ON PHONE TO CONFIRM SHE HAD PT WALLET.
[2017-10-10 09:30] VITALS: PULSE 87; RESP 18; O2SAT 94
[2017-10-10] MEDS: Iron Polysaccharide Complex 150 MG CAPSULE PO (09:40)
[2017-10-10] MEDS: Insulin Lispro 100 UNIT/ML INSULN.PEN 10 UNIT SC ×3 (09:41→17:32)
[2017-10-10] MEDS: oxyCODONE 5 MG Tablet PO ×2 (09:52→17:27)
[2017-10-10 11:05] LABS: Bedside Glucose 211 mg/dL (70-110)
--- NOTE | 2017-10-10 11:48 | NURSING ---
THIS NURSE HELPED PT TO BED SIDE COMMODE. PT TRANSFERRED PT STATED THAT EARLIER HE TRANSFERRED TO BEDSIDE WITH AIDS AND THE ONE SKINNY BURLY GIRL GOT HIS WOUND VAC TUBING STUCK IN BETWEEN THE RAILS. THIS NURSE WAS IN THE ROOM AT THE SAME TIME AND WOUND VAC TUBING DID NOT GET STUCK IN BETWEEN THE RAILS. REPORTED TO MAGNOLIA PETERSON
[2017-10-10] MEDS: diazePAM 5 MG Tablet PO ×2 (15:02→21:53)
[2017-10-10] MEDS: Loperamide 2 MG Capsule PO (15:02)
[2017-10-10 16:00] VITALS: BP 149/83; PULSE 76; RESP 18; TEMP 36.3; O2SAT 99
--- NOTE | 2017-10-10 16:29 | NURSING ---
THIS NURSE REINFORCED PT WOUND VAC DUE TO LEAK,THEN VAC STATED BLOCKAGE. CHANGED CANISTER WITH TUBBING ATTACHED. 100ML IN CANISTER. VAC RUNNING AT150. PT TOLERATED WELL. MAGNOLIA PETERSON AWARE
[2017-10-10 17:20] LABS: Bedside Glucose 124 mg/dL (70-110)
[2017-10-10] MEDS: Donepezil HCl 10 MG Tablet PO (20:52)
[2017-10-10] MEDS: Atorvastatin Calcium 40 MG Tablet PO (20:53)
[2017-10-10] MEDS: traZODone 50 MG Tablet 100 MG PO (21:52)
[2017-10-10 22:35] LABS: Bedside Glucose 156 mg/dL (70-110)
[2017-10-11] MEDS: Pregabalin 75 MG Capsule 150 MG PO ×2 (05:04→17:24)
[2017-10-11] MEDS: Enoxaparin 40 MG/0.4 ML Syringe SC (05:05)
[2017-10-11] MEDS: Fluticasone/Salmeterol 232-14 Inhaler 1 PUFF IH ×2 (05:06→17:24)
[2017-10-11] MEDS: Menthol/Lanolin/Calamine/Znox 113 GM Tube 1 APPLIC TOPICAL ×2 (05:07→17:14)
--- NOTE | 2017-10-11 05:09 | NURSING ---
pt wound vac was clogged had to put new wound vac on this morning. left stump cleansed, adaptic, and dressing applied. wound vac is seal and intact at this time. MAGNOLIA Fernandez assisted with wound vac.
--- NOTE | 2017-10-11 07:11 | PCA ---
went into res. room at 6;45 am. to do his blood sugar, res said he didnt want to be disturbed, said that staff had him awake about 10 tmes last night, with the wound vac, and doing sugars. Reported to Rn. Kunz.
[2017-10-11 07:25] LABS: Bedside Glucose 81 mg/dL (70-110)
[2017-10-11 08:44] VITALS: PULSE 76; RESP 16
[2017-10-11 11:26] LABS: Bedside Glucose 188 mg/dL (70-110)
[2017-10-11] MEDS: Insulin Lispro 100 UNIT/ML INSULN.PEN 10 UNIT SC (12:10)
[2017-10-11] MEDS: oxyCODONE 5 MG Tablet PO ×2 (15:35→21:37)
[2017-10-11] MEDS: diazePAM 5 MG Tablet PO ×2 (15:35→21:37)
[2017-10-11 17:20] LABS: Bedside Glucose 85 mg/dL (70-110)
--- NOTE | 2017-10-11 20:55 | NURSING ---
At 2044 this RN was alerted by ANSHUL Worley that pt had fallen while attempted to transfer from toilet to wheelchair. Pt found sitting on buttocks next to wheelchair on floor of bathroom. Pt alert and oriented x3, blood sugar 248, BP 122/89, HR 88, O2 stat 99%, temp 98.3. Pt hit back of head. New abrasion noted to Left lower back. No other injuries noted. Pt assisted back to bed. Dr Horn notified. N.O. for neuro checks per policy until 0700. Message left with brady by Kapil MERIDA.
[2017-10-11 21:00] LABS: Bedside Glucose 248 mg/dL (70-110)
[2017-10-11] MEDS: Atorvastatin Calcium 40 MG Tablet PO (21:38)
[2017-10-11] MEDS: Donepezil HCl 10 MG Tablet PO (21:39)
[2017-10-11] MEDS: traZODone 50 MG Tablet 100 MG PO (21:39)
--- NOTE | 2017-10-11 21:41 | NURSING ---
Pt yelling out demanding oxyir and valium before they were due. Assured pt they would be given to the minute they were allowed per orders. When this nurse was in room pt was angry, saying he did not want to be here anymore, give me iv antibiotics this vac ain't doing anything and saying unless you do something my brother will come get me the fuck out of here and tell you to go fuck yourself I've been in the hospital for I don't know how long. Attempted to redirect pt by stating you have been through a lot, we are doing our best and given him requested medications. Pt asked to be woken up when he could have them again and was told he would be. Repositioned for comfort. When nurse was to nurses station pt was screaming nurse! Hello nurse! where are you!? and when nurse went back into room he had pants pulled down and said come here and look at something He was told another staff member was needed and he laughed and said forget it leave me alone then. Pt left alone, RN aware. Continuing to monitor.
[2017-10-12] MEDS: oxyCODONE 5 MG Tablet PO ×3 (04:12→21:37)
[2017-10-12] MEDS: diazePAM 5 MG Tablet PO ×3 (04:12→21:36)
[2017-10-12] MEDS: Menthol/Lanolin/Calamine/Znox 113 GM Tube 1 APPLIC TOPICAL ×2 (04:13→18:20)
[2017-10-12] MEDS: Fluticasone/Salmeterol 232-14 Inhaler 1 PUFF IH ×2 (04:13→18:06)
[2017-10-12] MEDS: Enoxaparin 40 MG/0.4 ML Syringe SC (06:51)
[2017-10-12] MEDS: Pregabalin 75 MG Capsule 150 MG PO ×2 (06:51→18:16)
[2017-10-12 07:20] LABS: Bedside Glucose 194 mg/dL (70-110)
[2017-10-12] MEDS: Insulin Lispro 100 UNIT/ML INSULN.PEN 10 UNIT SC ×3 (09:47→18:08)
[2017-10-12] MEDS: Iron Polysaccharide Complex 150 MG CAPSULE PO (09:48)
[2017-10-12 10:00] VITALS: PULSE 97; RESP 18; O2SAT 96
[2017-10-12 12:00] LABS: Bedside Glucose 214 mg/dL (70-110)
[2017-10-12 15:50] VITALS: BP 100/60; PULSE 79; RESP 16; TEMP 36.9; O2SAT 97
[2017-10-12 17:00] LABS: Bedside Glucose 113 mg/dL (70-110)
[2017-10-12 19:35] VITALS: BP 108/56; PULSE 94; RESP 18; TEMP 37.1; O2SAT 94
--- NOTE | 2017-10-12 19:45 | NURSING ---
Addendum entered by Caro Cottrell 10/12/17 23:34: During assessment of pt, pt informed this nurse he wants to go home in 3 days. Pt stated, I can transfer myself. VM left with SW. Original Note: Witnessed by SPANISHER. Per SPANISHER pt's rt shoulder and back made contact with floor. Pt denies pain to area. No injury noted. Pt denies hitting head. Pt stated, Patient's request, I did not fall. This nurse informed pt, proper procedures and interventions will be completed per protocol. Hand grasps strong and equal. Dr Horn aware NNO. cigar making machine supervisor notified. Rena Harp [facility] field reimbursement manager aware. Will continue to monitor and asses as needed.
--- NOTE | 2017-10-12 19:50 | NURSING ---
AT 1930 THIS NURSE CHARTING AT NURSES STATION BY COMMERCIAL MAKEUP ARTIST HEARD GIRLS AND ROOM 6 YELL. WENT RUNNING BACK AND FOUND PT ON FLOOR IN FRONT OF BED WITH AID AND HERSON ODEN IN ROOM. GIRLS STATED PT FELL ON FLOOR WHILE TRYING TO HELP HIM AND PT GOT MAD AND YELLING AT THEM TO NOT TOUCH HIM . PT STATED I DONT WANT ANYONE TOUCHING ME. AID STATED PT STARTED FALLING FORWARD WHILE HELPING HIM GET INTO BED AND SHE TRYED TO GRAB PT TO PREVENT HIM FROM FALLING FORWARDS. PT THEN STATED THEY TRYED TO GRAB MY PRIVETS. THEN STATED TO AID HOW WOULD YOU LIKE IT IF I GRABED YOUR BOOB! PT CONTINUED TO YELL AND CUSS AT THE GIRLS. THIS NURSE TOLD GIRLS I WILL TAKE CARE OF HIM. VITALS DONE,MERI MERIDA CAME BACK TO ROOM PT CONTINUE TO YELL AND CUSS. MAGNOLIA JEREZ DID ASSESSMENT.
--- NOTE | 2017-10-12 20:11 | NURSING ---
Pt's daughter, Pushpa Mustafa, notified. Pt's daughter expressed great concern about patients current state. Pt's daughter informed this nurse he upsets her and she already has her hands full dealing with her own concerns. Pt had daughter crying on Sunday 10/08 d/t daughter witnessing how pt was treating staff. Daughter informed this nurse she will be in on Sunday 10/15 to see patient. Daughter thankful for care being provided and apologetic for patients behavior.
--- NOTE | 2017-10-12 20:48 | PCA ---
walked into room and pt had transferred himself to [facility]. pt was verbally abusive as nurse and i transferred him to wheel chair. was resisting care, became more agitated as we instructed him on how to transfer safely into bed. yelling to get out of room. we assisted pt to bed. i asked pt to let me help him take his prosthetic off in the bed, pt insisted he sit on side of bed to take it off. i stood directly in front of pt. pt yelled at me to not touch him. as is stood in front to pt he was flailing about pulling on prosthetic and yelling at me to not touch him and let him do it himself. spastic movements caused him to lose his balance as he leaned forward, falling out of bed. i grabbed pt shirt in an attempt to keep him off of the floor with no success. pt did not hit his head, landed on buttocks. denied any new injuries, nurse and other staff present to assess immediately. 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 don't touch me. how would you like it if i grabbed your boobs and ass. with two nurses present i left the room in order to deescalate to situation. RNs aware.
--- NOTE | 2017-10-12 20:59 | NURSING ---
At approx 1935, this nurse and ECHO TECHNICIAN Taty in room after pt was found in bathroom by himself, no staff had assisted him there and he had not called for assistance. Attempting to help pt back into bed after cleaning him up and helping with his pants, pt began to get increasingly agitated and angry, yelling loudly at staff to leave me alone and don't touch me. When this nurse tried to move wound vac pole around bed in order to not outstretch the tubing pt screamed bye! bye! bye! repeatedly and started swatting in direction of this nurse who was stating we are trying to help you that is all, we want you safely in bed. Pt was assisted into bed and as bathroom was being cleaned up by nurse, pt leaned towards still operator brandy while trying to take off prosthetic and fell to the floor, landing on buttocks. Did not hit head. Continued to insult and berate staff, asking you want me to grab your boobs and your ass? Gently told pt staff only touched arms in attempt to transfer and he yelled bullshit I'm a fucking endoscopy registered nurse you don't know shit I'm a fucking endoscopy registered nurse Could not redirect or help pt at this point and GATE CLERK Scott and RN Caro were in room immediately to help with assessment. Pt did not hit head, landed on buttocks and denied any new injury or pain. Pt was angry staff was assessing him and his main complaint was that of being bored. When he was told he was here to get better he told staff to shut up I'll be leaving soon and you can't stop me. RNs aware, continuing to monitor.
--- NOTE | 2017-10-12 21:12 | NURSING ---
At this time pt apologized to REGULATORY AFFAIRS INTERNS[employer] natalie saying tell that nurse I'm sorry and bring me my narcotics even if I'm asleep. RN aware. Pt is not due for any meds at this time. Continuing to monitor and will medicate as orders allow.
[2017-10-12] MEDS: Atorvastatin Calcium 40 MG Tablet PO (21:38)
[2017-10-12] MEDS: traZODone 50 MG Tablet 100 MG PO (21:38)
[2017-10-12] MEDS: Donepezil HCl 10 MG Tablet PO (21:38)
--- NOTE | 2017-10-12 21:40 | NURSING ---
This nurse went into pt room to check blood sugar and administer narcotics pt has been requesting, approx 2129. Pt recognized this nurse as nurse who was here last night, but not as nurse who was here earlier during fall. Stating thank god you are here. When did you get here? You won't believe the LADDER OPERATOR thats on now, shes a bitch. She's mad at me. 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 That's how valet service attendant work and she has another thing coming. Don't tell her though. I want her surprised. I want her scared. Keep her away from me. She's the LADDER OPERATOR. She's a bitch. Pt said several times he wanted that LADDER OPERATOR scared while laughing. This nurse listened but did not correct pt on being the nurse he is speaking about. Pt was cooperative and pleasant but stated more than once to 'keep that bitch away from me, she's in for it and I want her scared. But I want you to come back here sweetie. After pt had taken meds and was positioned comfortably, on the way out he said come back whenever honey, thanks alondra. RN as well as supervisor pig machine aware.
[2017-10-12 21:46] LABS: Bedside Glucose 305 mg/dL (70-110)
[2017-10-13] MEDS: oxyCODONE 5 MG Tablet PO ×2 (03:43→11:17)
[2017-10-13] MEDS: diazePAM 5 MG Tablet PO ×2 (03:44→20:29)
--- NOTE | 2017-10-13 03:56 | NURSING ---
Pt screaming, agitated and aggressive. Given prn oxyir and valium as he has been demanding all night. Continues to insist 'the client insights consultant earlier will be fired, that bitch laughed at me with that tall bitch'. This nurse stated I am the MULE SPINNER on tonight. Pt said no not you, the stupid bitch that was here earlier' still not understanding it was this nurse. He then said she and 'that fat bashir RN who isn't worth a god damn didn't do a god damn thing to help me all fucking night. She's not worth a pigs nickel at the [facility]'. Pt was screaming at this point and unable to calm down, redirect or even get a word in. NEEDLEMAKER called in d/t screaming, witnessed this. Pt was repositioned and afterwards when he was steady in bed he reached out and touched this nurses chest/upper torso, attempting to demonstrate what he states someone did to him. He is clearly very angry and is only escalating at this point. Will not allow staff to exit, and is not listening to staff trying to calm him down. He then said he is calling 'my buddies in the [facility] they'll be on your ass so fast this place will be shut down'. Staff confused; this angered pt further and he screamed Drugs stay in your hair and nails for a year you're all fucked! Told pt staff is not using drugs. He then tried to rip his wound vac off saying I want it to bleed this isn't doing anything for me Asked pt repeatedly not to do that, and pt said he is going to do so when I see Dr. Pena and yelled Tell Raúl I'm waiting for him now! Asked pt who Raúl was, and he screamed Raúl Pena! when it was explained staff does not call Dr. Jean Olsen and therefore did not know him by that name, he yelled I'm a 62 year old man god damn it I call him Raúl! Staff was then able to announce their exit, told pt Dr. Pena would be made aware of this, and encouraged rest. He said d/t not sleeping all night he was going to sleep and no one better wake me up, except for my shower I haven't been bathed in 3 months Did not attempt to explain pt had shower wednesday, quietly exited room in an attempt to not further agitate or anger pt. RN and cold rolling supervisor aware.
--- NOTE | 2017-10-13 04:09 | PCA ---
This MAINTENANCE PERSON asked to come to room with HERSON d/t patient yelling. Upon entering the room patient yelled at staff and stated that he would be calling the [facility] and that we would all be getting our hair and nails tested and don't we realize that dope stays in your hair and nails for a year. Staff unable to calm patient and unable to let him know we were exiting the room. Patient stated that he wanted a note left for Raúl. AIRWORTHINESS INSPECTOR asked who Raúl was and patient again yelled at her and stated Raúl Pena. AIRWORTHINESS INSPECTOR stated that staff does not call him Raúl and that is why she was unsure who he was talking about.
[2017-10-13] MEDS: Menthol/Lanolin/Calamine/Znox 113 GM Tube 1 APPLIC TOPICAL ×2 (06:32→17:58)
[2017-10-13] MEDS: Enoxaparin 40 MG/0.4 ML Syringe SC (06:32)
[2017-10-13] MEDS: Pregabalin 75 MG Capsule 150 MG PO ×2 (06:35→17:55)
--- NOTE | 2017-10-13 07:06 | NURSING ---
Pt irritated with staff coming into room this morning to check blood sugar and give meds and insulin. Angry he did not get an 'antacid for my phantom leg and foot pain' after complaint early this morning. Pt fell back to sleep shortly after and offered no further complaints. RN is aware of this request. Pt wants staff to leave me alone until I say I want my shower and keep door closed. Pt currently sleeping. Continuing to monitor.
[2017-10-13 07:10] LABS: Bedside Glucose 156 mg/dL (70-110)
[2017-10-13] MEDS: Insulin Lispro 100 UNIT/ML INSULN.PEN 10 UNIT SC ×2 (09:27→18:00)
--- NOTE | 2017-10-13 09:29 | NURSING ---
Pt refused Iron and víctor at this time, Pt staes that he is to tired. Pt did agree to Humalog injection. will continue to monitor
--- NOTE | 2017-10-13 11:19 | NURSING ---
Pt c/o of severe phantom leg pain at this time. PRN oxy 5mg given. Pt also wanting to be left alone refusing to have his blood glucose taken and refusing any ordered insulin coverage. Pt stating he hasn't slept and he wants staff to not bother him. He will call if he needs staff. MAGNOLIA tariq
--- NOTE | 2017-10-13 11:33 | PCM.CONS.GEN ---
Problem List (1) Olecranon bone spur Status: Acute (2) Fracture of olecranon process of ulna Status: Acute Qualifiers: Encounter type: initial encounter Fracture type: closed Laterality: right Qualified Code(s): S52.021A - Displaced fracture of olecranon process without intraarticular extension of right ulna, initial encounter for closed fracture Reason for Consult Date of Consultation: 10/13/17 History of Present Illness: The patient is a 62 year old M who has been falling recently, and fell onto his right elbow and had pain. X-rays were taken by the primary care provider which showed some swelling and a chipped traction spur. Per nursing staff patient has been doing transfers as he has bilateral BKA's transfer is without any problem and does not complain of any elbow pain. Patient is noncompliant with nurse nursing staff and is a little bit belligerent even at bedside. Most of history is obtained from chart as patient spent most of this time complaining about the fact that he did not eat yet this morning. [] Past Medical History Past Medical History (Chronic Problems): Chronic Problems Osteomyelitis of left tibia (Chronic) Ulceration of below knee amputation stump (Chronic) nonhealing diabetic ulcer left BKA stump Complication of amputation stump of left lower extremity (Chronic) Chronic pain syndrome (Chronic) Chronic renal failure, stage 2 (mild) (Chronic) stage 2-3 Hyperlipidemia (Chronic) Allergic rhinitis (Chronic) Polyneuropathy (Chronic) Insomnia (Chronic) Depression (Chronic) Traumatic brain injury (Chronic) Status post bilateral below knee amputation (Chronic) Type 2 diabetes mellitus (Chronic) poorly controlled Hypertension (Chronic) Allergies gabapentin [From Neurontin] Allergy (Verified 09/23/17 06:47) Other morphine Adverse Reaction (Verified 09/23/17 06:47) CAUSES FLASH BACKS- PTSD Home Medications: Ambulatory Orders Medication Instructions Recorded Amlodipine [Norvasc] 5 mg PO DAILY 09/03/17 Atorvastatin Calcium 20 mg PO QHS 09/03/17 Donepezil HCl 10 mg PO DAILY 09/03/17 Duloxetine HCl 60 mg PO DAILY 09/03/17 Fluticasone/Salmeterol [Advair 1 each IH BID 09/03/17 100-50 Diskus] Loratadine 10 mg PO DAILY 09/03/17 Pregabalin [Lyrica] 150 mg PO BID 09/03/17 Trazodone HCl 150 mg PO QHS 09/03/17 Valsartan [Diovan] 320 mg PO DAILY 09/03/17 Amoxicillin/Potassium Clav 1 each PO BID 09/10/17 [Augmentin 875-125 Tablet] Insulin Detemir [Levemir FlexPen] 14 units SC QHS 09/10/17 Oxycodone [Oxyir] 15 mg PO Q4H PRN PRN #1 tablet 09/10/17 Surgical History: cataract, - - Bilateral below knee amputation. Psychiatric History: Anxiety, Depression Lives: With Family - Lives with brother, but brother works and resident is often home alone. Smoking Status: Former smoker Tobacco Use: Non-smoker Alcohol: Occasional Drugs: None - *Family History Maternal History Items: No pertinent history Paternal History Items: No pertinent history Review of Systems Constitutional: Denies: Chills, Fever, Weight Change HEENT: Denies: Head Aches, Sinus Congestion, Sinus Drainage Cardiovascular: Denies: Chest Pain, Palpitations Respiratory: Denies: Cough, Shortness of breath at rest, Sputum production Gastrointestinal: Denies: Abdominal Pain, Nausea, Vomiting Genitourinary: Denies: Dysuria Musculoskeletal: Reports: Joint Pain, Leg Pain. Denies: Joint Tenderness Skin: Denies: Rash, Wounds Neurological: Denies: Numbness, Tingling, Focal weakness Psychiatric: Denies: Anxiety, Depression, Homicidal Ideations, Suicidal Ideations Hematologic/ Lymphatic: Denies: Easy Bruising, Easy Bleeding Patient Problems: Active and Suspected Problems Olecranon bone spur (Acute) Fracture of olecranon process of ulna (Acute) Fall (Acute) - Physical Exam General: Alert, Oriented x3, Non-Cooperative HEENT: Atraumatic, PERRLA, EOMI, Normocephalic Neck: Supple, No JVD, Negative Carotid Bruits Lungs: Clear to auscultation, Normal air movement Cardiovascular: Regular rate, No murmurs Abdomen: Bowel Sounds Present, Soft, Non Tender Extremities: No edema, Capillary Refill Less than 3 Seconds Skin: No rashes, No breakdown Musculoskeletal: No Tenderness to Palpation of Joints or Extremities, Tenderness - Slight tenderness along the olecranon however able to actively extend with maximal resistance with no pain at elbow, radial medial ulnar nerves intact, again 5 out of 5 muscle strength in extension of right elbow Neurological: Cranial nerves II-XII grossly intact Psych/Mental Status: Normal Affect, Appropriate Vital Signs Temp Pulse Resp BP Pulse Ox 98.8 F 94 18 108/56 L 94 10/12/17 19:35 10/12/17 19:35 10/12/17 19:35 10/12/17 19:35 10/12/17 19:35 Oxygen Delivery Method Room Air Weight: 188 lb 3 oz Body Mass Index (BMI) 25.7 Finger Stick Blood Glucose 204 Intake and Output for Last 24 Hours 10/11/17 10/12/17 10/13/17 23:59 23:59 23:59 Intake Total 720 / 720 1530 / 1530 Output Total 2024 / 2024 1300 / 1300 1675 / 1675 Balance -1305 / -1305 230 / 230 -1675 / -1675 POC Glucose 10/13/17 10/12/17 10/12/17 06:32 21:32 16:48 POC Glucose 156 H 305 H 113 H 10/12/17 11:53 POC Glucose 214 H Assessment/Plan All Active Problems Olecranon bone spur (Acute) Fracture of olecranon process of ulna (Acute) Abscess of left knee (Acute) Infection of amputation stump of left lower extremity (Acute) Hematoma of amputation stump of left lower extremity (Acute) Cellulitis and abscess of left leg (Acute) Fall (Acute) Right olecranon process split traction spur Nonoperative At this point do nothing except for the little piece that broke off is bothersome months or years down the road we could I guess remove the piece, but this highly doubtful He has full function of his triceps which are intact Most likely acute trauma onto the elbow which broke the traction spur and this is again a nonoperative issue and patient can be seen as an outpatient or not at all depending upon his preference Any questions do not hesitate to call [phone] Dr. Prado This note was generated with [employer] software. It may contain incorrect words, spelling, and punctuation that were not noted in checking the note before signing.
--- NOTE | 2017-10-13 14:38 | NURSING ---
wound photo: left stump
[2017-10-13] MEDS: Fluticasone/Salmeterol 232-14 Inhaler 1 PUFF IH (17:58)
[2017-10-13] MEDS: Donepezil HCl 10 MG Tablet PO (20:31)
[2017-10-13] MEDS: Atorvastatin Calcium 40 MG Tablet PO (20:31)
[2017-10-13 20:36] VITALS: PULSE 87; RESP 18; O2SAT 92
[2017-10-13 20:55] LABS: Bedside Glucose 355 mg/dL (70-110)
[2017-10-13] MEDS: traZODone 50 MG Tablet 100 MG PO (22:17)
[2017-10-14] MEDS: Pregabalin 75 MG Capsule 150 MG PO ×2 (05:58→17:37)
[2017-10-14] MEDS: Menthol/Lanolin/Calamine/Znox 113 GM Tube 1 APPLIC TOPICAL ×2 (05:59→17:41)
[2017-10-14] MEDS: Enoxaparin 40 MG/0.4 ML Syringe SC (06:00)
[2017-10-14] MEDS: Fluticasone/Salmeterol 232-14 Inhaler 1 PUFF IH ×2 (06:02→17:41)
[2017-10-14 06:30] LABS: Bedside Glucose 316 mg/dL (70-110)
[2017-10-14] MEDS: diazePAM 5 MG Tablet PO ×2 (08:24→21:43)
[2017-10-14] MEDS: Iron Polysaccharide Complex 150 MG CAPSULE PO (08:26)
[2017-10-14 10:00] VITALS: PULSE 78; RESP 18; O2SAT 94
[2017-10-14] MEDS: Insulin Lispro 100 UNIT/ML INSULN.PEN 10 UNIT SC (10:17)
[2017-10-14 11:11] LABS: Bedside Glucose 280 mg/dL (70-110)
[2017-10-14] MEDS: Insulin Lispro 100 UNIT/ML INSULN.PEN 13 UNIT SC ×2 (11:59→17:40)
--- NOTE | 2017-10-14 15:16 | CASEMGMT ---
Social Work Spoke with resident in room. Resident wanting to talk about discharge plan. Resident wanting to set a discharge date. This hospice social worker reporting that no discharge date has been set by team at this time, but resident is able to choose to discharge home at any time. Resident voicing understanding to this. Resident exploring with this hospice social worker what discharge to home would look like. Resident deciding that resident is not able to return home until resident is able to wear both prostatics. Resident wanting to continue with care and treatment on the Transitional Care Unit. Resident aware that resident can request to discharge home at any time if resident would change mind. Support given. This hospice social worker also assisting resident with enlarging TV channel guide again as first guide has been worn out. Updated guide given to resident. Will continue to follow. Dai HARTLEY, PIPE BENDER
--- NOTE | 2017-10-14 15:24 | NURSING ---
Pt called out for assist to BR to void, this nurse and HERSON Goodman entered room and pt was already transferring self from WC to toilet. Prosthetic in place to RT LE. Pt very unsteady with transfer from WC to toilet using wall mounted handrails. While trying to assist pt refusing help, stated I have been transferring myself for 6 months then corrected self and stated 6 weeks This nurse observed that when pt was standing on RT prosthetic leg, he had been sitting on his residual stump. So his residual limb below knee was tucked under his thigh while sitting in WC, putting pressure on incisional area. Wound nurse notified. Pt assisted back to WC with help pulling pants up. Pt does not like staff in his personal space. Makes it difficult to help him. 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
--- NOTE | 2017-10-14 15:27 | NURSING ---
This nurse was asked to Pt to refill his water glass, when this nurse entered Pt room Pt noted to have self transferred from his wheel chair into his recliner. Pt states that per patient request he can transfer himself as he needs. This nurse explained that he is not to self transfer, and since he has had frequent falls he needs to call when he needs help. Pt states he will not and requests to see the DRYin because its state law that we do as the Pt requests when he requests. Alana MERIDA notified
--- NOTE | 2017-10-14 18:32 | NURSING ---
This nurse into Pt room to help Pt after he screamed at one of the aides over the call phone. this nurse into room Pt has coffee all over the floor. Pt proceeded to throw the cover of his dinner plate across the bed and proclaimed that he is pissed off. This nurse tried to calm Pt down and talk to him but he continued to get angrier. Pt yelling that he is sueing the hospital and our staff for sexual imposition. This nurse cleaning the coffee off the floor Pt continues to yell and accuse staff off mistreatment. This nurse handed tray out of door to nurses aide and walked back into Pt room Pt through the lid to his coffee at this nurse and said you forgot this. This nurse tried telling Pt that his behavior is unacceptable, pt continued to yell this nurse left the room to try and let Pt calm.. Alana MERIDA aware
--- NOTE | 2017-10-14 18:56 | NURSING ---
Pt called out asking to have glasses cleaned and yelled that we don't need to tell the Dr. everything he does and why would we tell him that he threw his coffee, stated if these games don't stop I will bi this place! This RN into patient's room, cleaned his glasses for him, all the while pt is speaking loudly and forcefully, states that he never threw his coffee, it fell off the table. And why do we tell the Dr. that. Explained to patient that behavior is reported, pt begins to complain about hating Dr. Horn and how he treats him, this nurse states that that is between him and the Dr, that does not mean he gets to take it out on staff. Pt again states I will charge this hospital with sexual imposition. 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 We are all professionals and we can all work together to help you. At this patient calmed somewhat and states that he's sorry, he just lost and grandchild and has PTSD, states I hate people, look at me,( pushes table back and points to bilat amputees) wouldn't you hate people?. I'm not always a mean person, but sometimes I snap. I don't need a psych loera, I just need people to help me. The aides will not even come in and help me cut my food. Explained to patient that the aides that are here are not allowed to come into his room because of what he accused them of, so it takes longer for someone to come help him. Pt states well what would you have done if someone grabbed you t when you were in the bathroom and they came close to touching my balls,my junk. 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 Explained to patient that it is also our instinct as nurses to keep people from falling and hurting themselves. Patient calmed down and towards the end of our conversation he stated that he would like to start over and he will try not to get upset.
--- NOTE | 2017-10-14 19:13 | NURSING ---
This nurse into Pt room to refill Pt ice at his request. Pt ranting about How he never receives the meals he asks for and how no one wants to help him. 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 This nurse left room before Pt escalated
[2017-10-14] MEDS: Donepezil HCl 10 MG Tablet PO (21:34)
[2017-10-14] MEDS: traZODone 50 MG Tablet 100 MG PO (21:34)
[2017-10-14] MEDS: Atorvastatin Calcium 40 MG Tablet PO (21:34)
--- NOTE | 2017-10-14 21:52 | NURSING ---
pt BS 70 given orange juice at this time will recheck back in 15 minute
[2017-10-14 22:15] LABS: Bedside Glucose 70 mg/dL (70-110)
--- NOTE | 2017-10-14 22:59 | NURSING ---
pt BS 92 with recheck resting comfortable in bed no s/sx noted Kapil, RN aware of BS levels
[2017-10-14 23:06] LABS: Bedside Glucose 92 mg/dL (70-110)
[2017-10-15] MEDS: Pregabalin 75 MG Capsule 150 MG PO ×2 (06:20→19:04)
[2017-10-15] MEDS: Fluticasone/Salmeterol 232-14 Inhaler 1 PUFF IH ×2 (06:21→18:56)
[2017-10-15] MEDS: Senna/Docusate Sodium 1 Tablet 2 TABLET PO (06:21)
[2017-10-15] MEDS: Enoxaparin 40 MG/0.4 ML Syringe SC (06:23)
[2017-10-15] MEDS: Menthol/Lanolin/Calamine/Znox 113 GM Tube 1 APPLIC TOPICAL ×2 (06:26→18:47)
[2017-10-15 06:30] LABS: Bedside Glucose 96 mg/dL (70-110)
[2017-10-15] MEDS: Insulin Lispro 100 UNIT/ML INSULN.PEN 13 UNIT SC ×2 (08:30→11:57)
[2017-10-15] MEDS: oxyCODONE 5 MG Tablet PO ×3 (08:33→23:04)
[2017-10-15] MEDS: diazePAM 5 MG Tablet PO ×2 (10:58→19:00)
[2017-10-15] MEDS: Iron Polysaccharide Complex 150 MG CAPSULE PO (10:59)
[2017-10-15 11:56] LABS: Bedside Glucose 198 mg/dL (70-110)
[2017-10-15 15:29] VITALS: PULSE 81; RESP 18; O2SAT 97
[2017-10-15 16:00] VITALS: BP 117/67; PULSE 80; RESP 16; TEMP 36.7; O2SAT 98
[2017-10-15 16:56] LABS: Bedside Glucose 65 mg/dL (70-110)
--- NOTE | 2017-10-15 16:58 | NURSING ---
PT LEG DRESSING WAS CHANGED 3 TIMES TODAY DUE TO PT NOT SITTING STILL. REPORTED TO MAGNOLIA ROSARIO
[2017-10-15 19:00] LABS: Bedside Glucose 210 mg/dL (70-110)
[2017-10-15] MEDS: Loperamide 2 MG Capsule PO (19:00)
--- NOTE | 2017-10-15 19:06 | NURSING ---
PT REFUSED HIS HUMALOG. PT STATED I WILL BOTTOM OUT DURING THE NIGHT. REPORTED TO MAGNOLIA ROSARIO
--- NOTE | 2017-10-15 19:07 | NURSING ---
PT VERY UPSET CAUSE HE HAD DIARRHEA. STATED SOME ONE GAVE ME STOOLS SOFTENERS AND IS PLAYING GAMES,I WANT THEM WROTE UP. TOLD PT I WILL LET THE CHARGE NURSE KNOW. REPORTED TO MAGNOLIA ROSARIO
[2017-10-15 20:31] LABS: Bedside Glucose 274 mg/dL (70-110)
--- NOTE | 2017-10-15 21:11 | NURSING ---
Pt c/o having diarrhea 6 times today d/t been given stool softener and not knowing he's been given these medication. This nurse explained to this pt that when he's been given stool softeners from this nurse i asked him and explained to him what they are he stated, that he was okay with this nurse given them to him when given by this nurse sometimes. ASSISTANT DRAFTER Meir came and assisted pt to the toilet this nurse walked in and pt was on the toilet stated he has been having diarrhea all day. He wanted this nurse to look to see that he had loose stool assessed the situation and this nurse didn't see any diarrhea and this nurse stated to this pt that there was no diarrhea but i did feel a formed stool at the tip of the anus and let the pt know that he has a formed stool there. The ASSISTANT DRAFTER Meir came in while this nurse and the RNJoaquina were in his room to see if we needed any help he stated to Meir you have changed me six times from diarrhea. Meir the ASSISTANT DRAFTER states that the pt states having diarrhea and him not seeing any at all the times he has taken him to the toilet.
--- NOTE | 2017-10-15 21:15 | NURSING ---
Mohsen Talamantes NP aware of patient's c/o of diarrhea and that HERSON Gregory feeling formed stool at the tip of the anus. New orders given to make senna and miralax prn. KUB in the morning.
--- NOTE | 2017-10-15 21:20 | NURSING ---
Patient c/o of having loose stools and upset that he was given stool softeners without his knowledge. HERSON Gregory explained to the patient that she has given him stool softeners but she has always told him that she tells him when he is getting his stool softeners and he states I know. Patient states that his daughter is keeping record of how many stools that I have had all day and that she is upset and is going to tell the rehab department manager about this. She has been recording our conversations so she has the evidence. This nurse talked to daughter Pushpa on the phone about this and the new orders given by Mohsen Talamantes NP. Daughter very upset at this time and states that she cannot handle her dad anymore. She states He wants to blame everyone else but he did this to himself. I am not recording anyone so you don't have to worry about that. I have only talked to him once today. He has called me several times but I let it go to voicemail because I cannot handle this anymore. I have my own problems I am dealing with. Patient's daughter very thankful for the care staff has given to her father and states I apologize for him.
[2017-10-15] MEDS: Atorvastatin Calcium 40 MG Tablet PO (21:23)
[2017-10-15] MEDS: Donepezil HCl 10 MG Tablet PO (21:23)
[2017-10-15] MEDS: traZODone 50 MG Tablet 100 MG PO (21:23)
--- NOTE | 2017-10-15 23:12 | NURSING ---
This nurse went in pt room to give med and pain pill and states daughter upset with him now and want speak with him for awhile now. States that his daughter states that she doesn't remember him calling her to report his diarrhea. This nurse communicated to him that she loves him and that she has somethings that she has been dealing with also. He stated what did i think if she has taken he credit card once before and gotten a cellphone on it what would she do know. He also stated that he just wants to have his surgery done by [facility] as soon as possible so he could go home.This nurse made Jose R Kunz aware of this conversation.
--- NOTE | 2017-10-16 01:11 | NURSING ---
This nurse went in pt room to give med and pain pill and states daughter is upset with him now and she want be speaking with him for awhile now. Pt states that his daughter states that she doesn't remember him calling her to report his diarrhea. This nurse communicated to him that his daughter loves him and that his daughter has been dealing with somethings also. He stated what do I think if she has taken my credit card once before and gotten a cellphone on it what would she do now. He also stated that he just wants to have his surgery done by [facility] as soon as possible so he could go home.This nurse made Jose R Kunz aware of this conversation.
--- NOTE | 2017-10-16 01:18 | NURSING ---
While this nurse and the RN Joaquina was in the pt room he called his daughter so she could tell us about his diarrhea episodes that he has been having all day. While dialing the number he stated that his daughter records all of his call so she can share with the acetylene burner. When his daughter Allison answered the phone he told her that he had a RN and Auditing Clerk in his room the Auditing Clerk that he likes. Daughter couldn't even say a word because he was over talking as we were trying to explain the situation. This nurse communicated to the daughter that I work as his nurse a lot and when he is been given a stool softener I tell him what it is and why I am given it to him and that I don't give it to him every time I work. I also told her that when I came in his room the liquid hydrogen plant operator had him on the toilet and he wanted this nurse to come over to see it. I told her that I went over to wipe him and I didn't see any diarrhea but I did feel a formed stool at the anus and told the pt that he had stool there. Pt stated that at this time also that he didn't want any more stool softener even through the BM protocol was explained to him. Pt also self transfer himself while this nurse and the Rn was in the room to show us that he could do it by himself. Stated that therapist knows and states he could self transfer all by himself. While transferring himself to the toilet he states that his leg isn't always strong.
[2017-10-16] MEDS: Menthol/Lanolin/Calamine/Znox 113 GM Tube 1 APPLIC TOPICAL ×2 (05:57→18:15)
[2017-10-16] MEDS: Pregabalin 75 MG Capsule 150 MG PO ×2 (05:58→22:21)
[2017-10-16] MEDS: Fluticasone/Salmeterol 232-14 Inhaler 1 PUFF IH ×3 (06:00→18:12)
[2017-10-16] MEDS: Enoxaparin 40 MG/0.4 ML Syringe SC (06:04)
[2017-10-16 06:15] VITALS: PULSE 76; RESP 16; O2SAT 96
[2017-10-16 07:11] LABS: Bedside Glucose 121 mg/dL (70-110)
[2017-10-16 07:17] LABS: Absolute Lymphocyte Count 1.71 X10^3/ul (0.83-4.51); Absolute Neutrophil Count 2.2 X10^3/uL (2.0-7.7); Basophil# 0.02 X10^3/uL; Basophil% 0.4 % (0-1); Eosinophil# 0.16 X10^3/uL; Eosinophils% 3.5 % (0-5); Hematocrit 26.9 % (40-54); Hemoglobin 8.9 g/dl (13.0-16.5); Lymphocyte # 1.71 X10^3/ul (4.0); Lymphocyte % 37.1 % (19-41); Mean Corp Hgb Conc 33.1 g/gl (32-36); Mean Corpuscular Hgb 30.5 pg (27.0-32.0); Mean Corpuscular Volume 92.1 fL (80-94); Mean Platelet Vol. 9.7 fl (6.2-12.0); Monocyte% 10.8 % (0-10); Neutrophil # 2.22 X10^3/uL (2.7-7.7); Neutrophil % 48.2 % (47-70); Platelet Count 321 K/mm3 (150-450); RBC Distribution Width CV 12.8 % (11.6-14.6); RBC Distribution Width SD 41.8 fl (35.1-43.9); Red Blood Count 2.92 M/mm3 (4.6-6.2); White Blood Count 4.6 K/mm3 (4.4-11.0)
[2017-10-16 07:19] LABS: POSITIVE COUNT NO; POSITIVE DIFFERENTIAL NO; POSITIVE MORPHOLOGY NO
[2017-10-16 07:35] LABS: Anion Gap 8 (5-15); BUN 27 mg/dL (7-18); BUN/Creat Ratio 25.5 RATIO (10-20); Calcium,Total 8.7 mg/dL (8.5-10.1); Chloride 110 mmol/L (98-107); Creatinine, Serum 1.06 mg/dL (0.70-1.30); EST Glomerular Filtration Rate 75 mL/min (>60); Est Glom Filt Rate - Afr Amer 91 mL/min (>60); Estimated Creatinine Clearance 76.96 ml/min; Glucose 118 mg/dL (74-106); Potassium 4.4 mmol/L (3.5-5.1); Sodium Level 143 mmol/L (136-145)
--- NOTE | 2017-10-16 08:52 | NURSING ---
Went to R' room at 0800 to give insulin with breakfast, he said he wasn't going to eat for a while. Just went to check on him again at 0853 and he is asleep and has not eaten breakfast. Blood sugar was 121, Do not feel safe to give insulin without him eating. Will check on him again in 30 minutes.
--- NOTE | 2017-10-16 09:40 | NURSING ---
Checked in and he is still asleep and has not eaten breakfast. Will continue to monitor.
--- NOTE | 2017-10-16 10:04 | RAD_ITS ---
STUDY: X-RAY - ABDOMEN/PELVIS REASON FOR EXAM: Male, 62 years old. Diarrhea. TECHNIQUE: Single AP view of the abdomen / pelvis. COMPARISON: 10/05/2017. FINDINGS: There is an unremarkable bowel gas pattern. The visualized liver, spleen and kidneys are grossly normal in size . Normal soft tissue structures. There are diffuse degenerative changes of the visualized lumbar spine. RAD/Abdomen Single View (Portable) IMPRESSION: Unremarkable gas pattern. Electronically Signed: Obi Maier MD at 10:48 EDT Tel , Service support ,
[2017-10-16] MEDS: Insulin Lispro 100 UNIT/ML INSULN.PEN 13 UNIT SC ×2 (10:48→14:06)
[2017-10-16] MEDS: oxyCODONE 5 MG Tablet PO ×2 (11:22→18:01)
[2017-10-16] MEDS: diazePAM 5 MG Tablet PO ×2 (11:22→18:08)
[2017-10-16 11:50] LABS: Bedside Glucose 165 mg/dL (70-110)
--- NOTE | 2017-10-16 13:55 | NURSING ---
xray results reviewed, NNO.
[2017-10-16 16:00] VITALS: BP 114/56; PULSE 74; RESP 16; TEMP 36.4; O2SAT 98
[2017-10-16 17:06] LABS: Bedside Glucose 50 mg/dL (70-110)
[2017-10-16 17:25] LABS: Bedside Glucose 117 mg/dL (70-110)
[2017-10-16 21:15] LABS: Bedside Glucose 236 mg/dL (70-110)
[2017-10-16] MEDS: Atorvastatin Calcium 40 MG Tablet PO (22:23)
[2017-10-16] MEDS: traZODone 50 MG Tablet 100 MG PO (22:23)
[2017-10-16] MEDS: Donepezil HCl 10 MG Tablet PO (22:23)
[2017-10-17] MEDS: oxyCODONE 5 MG Tablet PO ×4 (00:16→21:23)
[2017-10-17] MEDS: diazePAM 5 MG Tablet PO ×4 (00:16→21:24)
[2017-10-17] MEDS: Pregabalin 75 MG Capsule 150 MG PO ×2 (06:27→17:44)
[2017-10-17] MEDS: Menthol/Lanolin/Calamine/Znox 113 GM Tube 1 APPLIC TOPICAL ×2 (06:28→17:45)
[2017-10-17] MEDS: Enoxaparin 40 MG/0.4 ML Syringe SC (06:31)
[2017-10-17 07:01] LABS: Bedside Glucose 77 mg/dL (70-110)
[2017-10-17 11:56] LABS: Bedside Glucose 118 mg/dL (70-110)
[2017-10-17 16:00] VITALS: BP 140/72; PULSE 82; RESP 16; TEMP 36.7; O2SAT 97
[2017-10-17 17:05] LABS: Bedside Glucose 240 mg/dL (70-110)
[2017-10-17] MEDS: Insulin Lispro 100 UNIT/ML INSULN.PEN 13 UNIT SC (17:44)
[2017-10-17] MEDS: Fluticasone/Salmeterol 232-14 Inhaler 1 PUFF IH (17:45)
[2017-10-17 21:00] VITALS: PULSE 66; RESP 18; O2SAT 94
[2017-10-17 21:11] LABS: Bedside Glucose 347 mg/dL (70-110)
[2017-10-17] MEDS: Donepezil HCl 10 MG Tablet PO (21:25)
[2017-10-17] MEDS: Atorvastatin Calcium 40 MG Tablet PO (21:25)
[2017-10-17] MEDS: traZODone 50 MG Tablet 100 MG PO (21:25)
[2017-10-18] MEDS: Fluticasone/Salmeterol 232-14 Inhaler 1 PUFF IH ×2 (06:24→18:29)
[2017-10-18] MEDS: Menthol/Lanolin/Calamine/Znox 113 GM Tube 1 APPLIC TOPICAL ×2 (06:24→18:35)
[2017-10-18] MEDS: Enoxaparin 40 MG/0.4 ML Syringe SC (06:26)
[2017-10-18] MEDS: Pregabalin 75 MG Capsule 150 MG PO ×2 (06:30→18:27)
[2017-10-18] MEDS: diazePAM 5 MG Tablet PO ×3 (06:31→23:58)
[2017-10-18 07:06] LABS: Bedside Glucose 129 mg/dL (70-110)
[2017-10-18] MEDS: Insulin Lispro 100 UNIT/ML INSULN.PEN 13 UNIT SC ×2 (08:51→12:48)
[2017-10-18] MEDS: Iron Polysaccharide Complex 150 MG CAPSULE PO (10:08)
[2017-10-18] MEDS: oxyCODONE 5 MG Tablet PO ×2 (10:09→18:27)
[2017-10-18 11:31] LABS: Bedside Glucose 149 mg/dL (70-110)
--- NOTE | 2017-10-18 14:04 | NURSING ---
HERSON Chavez had changed dressing to the left stump. Dressing is intact. will assess tomorrow.
--- NOTE | 2017-10-18 14:33 | PCM.PN.RX ---
<Roberto Tracy D - Last Filed: 10/18/17 14:33> Progress Note - Pharmacy Subjective: [facility] Follow-Up Objective: Allergies gabapentin [From Neurontin] Allergy (Verified 09/23/17 06:47) Other morphine Adverse Reaction (Verified 09/23/17 06:47) CAUSES FLASH BACKS- PTSD Current Medications Generic Name Dose Route Start Last Admin Trade Name Freq PRN Reason Stop Dose Admin Acetaminophen 1,000 mg 09/10/17 19:34 09/21/17 18:10 Tylenol PO 1,000 mg Q8H PRN Administration MILD PAIN (1-3/10) Atorvastatin Calcium 40 mg 10/04/17 20:36 10/17/17 21:25 Lipitor PO 40 mg QHS YULIYA Administration Bisacodyl 10 mg 09/10/17 18:15 Dulcolax PO DAILY PRN Constipation Calamine/Phenol 1 applic 09/11/17 06:00 10/18/17 06:24 Calmoseptine Ointment TOPICAL 1 applicatio BID [facility] Administration Protocol Diazepam 5 mg 09/12/17 14:00 10/18/17 06:31 Valium PO 5 mg Q6H PRN Administration SPASMS/PTSD Donepezil HCl 10 mg 09/10/17 22:00 10/17/17 21:25 Aricept PO 10 mg QHS [facility] Administration Enoxaparin Sodium 40 mg 09/11/17 06:00 10/18/17 06:26 Lovenox SC 40 mg DAILY@0600 YULIYA Administration Insulin Glargine 20 units 10/14/17 18:00 10/18/17 06:27 Lantus ([facility]) SC 20 units BID YULIYA Administration Insulin Human Lispro 13 unit 10/14/17 11:45 10/18/17 12:48 Humalog Kwikpen ([facility]) SC 13 units TIDAC [facility] Administration Loperamide HCl 2 mg 10/05/17 17:38 10/15/17 19:00 Imodium PO 2 mg Q6H PRN PRN Administration Diarrhea Nutritional Formula 1 packet 09/16/17 08:00 10/18/17 08:47 Eleuterio - Palmer Flavor [facility] Oxycodone HCl 5 mg 10/04/17 20:37 10/18/17 10:09 Oxyir PO 5 mg Q6H PRN Administration MODERATE PAIN (4-5/10) Paroxetine HCl 40 mg 10/04/17 22:00 10/17/17 21:25 Paxil PO 40 mg QHS YULIYA Administration Polyethylene Glycol 17 gm 10/15/17 21:27 Miralax PO DAILY PRN CONSTIPATION Polysaccharide Iron Complex 150 mg 10/03/17 08:00 10/18/17 10:08 Ferrex 150 PO 150 mg DAILYCM YULIYA Administration Pregabalin 150 mg 09/17/17 10:26 10/18/17 06:30 Lyrica PO 150 mg BID YULIYA Administration Fluticasone/Salmeterol 1 puff 09/11/17 06:00 10/18/17 06:24 Fluticasone-Salmeterol 232-14 IH 1 puff Q12 YULIYA Administration Senna/Docusate Sodium 2 tablet 10/15/17 21:28 Senokot-S, Shilpi-Colace PO BID PRN PRN CONSTIPATION Sodium Chloride 5 - 30 ml 09/11/17 17:29 09/12/17 12:24 IV 10 ml UD PRN Administration SALINE FLUSH Trazodone HCl 100 mg 10/04/17 20:45 10/17/17 21:25 Desyrel PO 100 mg QHS YULIYA Administration Valsartan 320 mg 09/11/17 06:00 10/18/17 06:24 Diovan PO 320 mg DAILY YULIYA Administration Problem List Olecranon bone spur (Acute) Fracture of olecranon process of ulna (Acute) Fall (Acute) Hyperlipidemia (Chronic) Allergic rhinitis (Chronic) Polyneuropathy (Chronic) Insomnia (Chronic) Vital Signs Temp Pulse Resp BP Pulse Ox 98.1 F 66 18 140/72 H 94 10/17/17 16:00 10/17/17 21:00 10/17/17 21:00 10/17/17 16:00 10/17/17 21:00 Oxygen Delivery Method Room Air Weight: 85.36 kg Body Mass Index (BMI) 25.7 Finger Stick Blood Glucose 204 Sodium 143 mmol/L (136-145) 10/16/17 06:37 Potassium 4.4 mmol/L (3.5-5.1) 10/16/17 06:37 Chloride 110 mmol/L (98-107) H 10/16/17 06:37 Carbon Dioxide 25.0 mmol/L (21.0-32.0) 10/16/17 06:37 Anion Gap 8 (5-15) 10/16/17 06:37 BUN 27 mg/dL (7-18) H 10/16/17 06:37 Creatinine 1.06 mg/dL (0.70-1.30) 10/16/17 06:37 Est GFR (MDRD) Af Amer 91 mL/min (>60) 10/16/17 06:37 Est GFR (MDRD) Non-Af 75 mL/min (>60) 10/16/17 06:37 BUN/Creatinine Ratio 25.5 RATIO (10-20) H 10/16/17 06:37 Glucose 118 mg/dL (74-106) H 10/16/17 06:37 Assessment/Plan: 1) Pain APAP for mild pain, oxycodone for moderate pain, diazepam for spasms, pregabalin. Continue to monitor daily pain scores, prn medication use. 2) HTN Valsartan. Continue to monitor BP, renal function, electrolytes. 3) Pulm Advair inh twice daily. Continue to monitor for shortness of breath. 4) DM2 Insulin glargine twice daily, lispro before meals. Continue to monitor BGT, s/s hyper/hypoglycemia. 5) HLD Atorvastatin daily. Continue to monitor lipids. 6) TBI Donepezil at HS. Continue to monitor clinically. 7) Nutrition Eleuterio, Fe. Continue to monitor clinically. 8) DVT PPx Enoxaparin daily. Continue to monitor s/s bleeding/clot. Psychotropic Medications: 9) Insomnia/Anxiety Trazodone at HS, paroxetine at HS. Continue to monitor for insomnia, s/s serotonin syndrome such as sweating, anxiety, tremor, fever. Unnecessary Medications: None Bowel Regimen: 10) Senna/s, PEG, prn bisacodyl, prn loperamide. Continue to monitor prn medication use, for constipation/diarrhea. Date of Note:: 10/18/17 - Provider Comments Provider responsibility: Provider responsible to enter orders to implement recommendations <Jez Horn Chi - Last Filed: 10/22/17 11:14> Progress Note - Pharmacy Subjective: [] Objective: Allergies gabapentin [From Neurontin] Allergy (Verified 09/23/17 06:47) Other morphine Adverse Reaction (Verified 09/23/17 06:47) CAUSES FLASH BACKS- PTSD Current Medications Generic Name Dose Route Start Last Admin Trade Name Freq PRN Reason Stop Dose Admin Acetaminophen 1,000 mg 09/10/17 19:34 09/21/17 18:10 Tylenol PO 1,000 mg Q8H PRN Administration MILD PAIN (1-3/10) Atorvastatin Calcium 40 mg 10/04/17 20:36 10/21/17 22:06 Lipitor PO 40 mg QHS YULIYA Administration Bisacodyl 10 mg 09/10/17 18:15 Dulcolax PO DAILY PRN Constipation Calamine/Phenol 1 applic 09/11/17 06:00 10/22/17 07:01 Calmoseptine Ointment TOPICAL 1 applicatio BID [facility] Administration Protocol Diazepam 5 mg 09/12/17 14:00 10/22/17 00:29 Valium PO 5 mg Q6H PRN Administration SPASMS/PTSD Donepezil HCl 10 mg 09/10/17 22:00 10/21/17 22:06 Aricept PO 10 mg QHS [facility] Administration Enoxaparin Sodium 40 mg 09/11/17 06:00 10/22/17 07:02 Lovenox SC 40 mg DAILY@0600 [facility] Administration Insulin Glargine 20 units 10/14/17 18:00 10/22/17 09:18 Lantus ([facility]) SC Not Given BID [facility] Insulin Human Lispro 13 unit 10/14/17 11:45 10/22/17 09:19 Humalog Kwikpen ([facility]) SC 13 units TIDAC [facility] Administration Loperamide HCl 2 mg 10/05/17 17:38 10/21/17 15:28 Imodium PO 2 mg Q6H PRN PRN Administration Diarrhea Nutritional Formula 1 packet 09/16/17 08:00 10/22/17 09:06 Eleuterio - Palmer Flavor PO [facility] Oxycodone HCl 5 mg 10/04/17 20:37 10/22/17 09:16 Oxyir PO 5 mg Q6H PRN Administration MODERATE PAIN (4-5/10) Paroxetine HCl 40 mg 10/04/17 22:00 10/21/17 22:05 Paxil PO 40 mg QHS YULIYA Administration Polyethylene Glycol 17 gm 10/15/17 21:27 Miralax PO DAILY PRN CONSTIPATION Polysaccharide Iron Complex 150 mg 10/03/17 08:00 10/21/17 10:57 Ferrex 150 PO 150 mg DAILYCM YULIYA Administration Pregabalin 150 mg 09/17/17 10:26 10/22/17 07:01 Lyrica PO 150 mg BID YULIYA Administration Fluticasone/Salmeterol 1 puff 09/11/17 06:00 10/22/17 07:02 Fluticasone-Salmeterol 232-14 IH 1 puff Q12 YULIYA Administration Senna/Docusate Sodium 2 tablet 10/15/17 21:28 Senokot-S, Shilpi-Colace PO BID PRN PRN CONSTIPATION Sodium Chloride 5 - 30 ml 09/11/17 17:29 09/12/17 12:24 IV 10 ml UD PRN Administration SALINE FLUSH Trazodone HCl 100 mg 10/04/17 20:45 10/21/17 22:05 Desyrel PO 100 mg QHS YULIYA Administration Valsartan 320 mg 09/11/17 06:00 10/22/17 07:01 Diovan PO 320 mg DAILY YULIYA Administration Problem List Olecranon bone spur (Acute) Fracture of olecranon process of ulna (Acute) Fall (Acute) Hyperlipidemia (Chronic) Allergic rhinitis (Chronic) Polyneuropathy (Chronic) Insomnia (Chronic) Vital Signs Temp Pulse Resp BP Pulse Ox 97.2 F L 72 16 100/57 L 96 10/18/17 15:36 10/21/17 22:00 10/21/17 22:00 10/18/17 15:36 10/21/17 22:00 Oxygen Delivery Method Room Air Weight: 85.36 kg Body Mass Index (BMI) 25.7 Finger Stick Blood Glucose 204 Sodium 143 mmol/L (136-145) 10/16/17 06:37 Potassium 4.4 mmol/L (3.5-5.1) 10/16/17 06:37 Chloride 110 mmol/L (98-107) H 10/16/17 06:37 Carbon Dioxide 25.0 mmol/L (21.0-32.0) 10/16/17 06:37 Anion Gap 8 (5-15) 10/16/17 06:37 BUN 27 mg/dL (7-18) H 10/16/17 06:37 Creatinine 1.06 mg/dL (0.70-1.30) 10/16/17 06:37 Est GFR (MDRD) Af Amer 91 mL/min (>60) 10/16/17 06:37 Est GFR (MDRD) Non-Af 75 mL/min (>60) 10/16/17 06:37 BUN/Creatinine Ratio 25.5 RATIO (10-20) H 10/16/17 06:37 Glucose 118 mg/dL (74-106) H 10/16/17 06:37 Assessment/Plan: Psychotropic Medications: Unnecessary Medications: Bowel Regimen: - Provider Comments Provider responsibility: Provider responsible to enter orders to implement recommendations Provider Comments to Recommendations by Pharmacy: Agree
--- NOTE | 2017-10-18 14:38 | PHA.CONS_ITS ---
<Roberto Tracy D - Last Filed: 10/18/17 14:33> Progress Note - Pharmacy Subjective: [facility] Follow-Up Objective: Allergies gabapentin [From Neurontin] Allergy (Verified 09/23/17 06:47) Other morphine Adverse Reaction (Verified 09/23/17 06:47) CAUSES FLASH BACKS- PTSD Current Medications Generic Name Dose Route Start Last Admin Trade Name Freq PRN Reason Stop Dose Admin Acetaminophen 1,000 mg 09/10/17 19:34 09/21/17 18:10 Tylenol PO 1,000 mg Q8H PRN Administration MILD PAIN (1-3/10) Atorvastatin Calcium 40 mg 10/04/17 20:36 10/17/17 21:25 Lipitor PO 40 mg QHS YULIYA Administration Bisacodyl 10 mg 09/10/17 18:15 Dulcolax PO DAILY PRN Constipation Calamine/Phenol 1 applic 09/11/17 06:00 10/18/17 06:24 Calmoseptine Ointment TOPICAL 1 applicatio BID [facility] Administration Protocol Diazepam 5 mg 09/12/17 14:00 10/18/17 06:31 Valium PO 5 mg Q6H PRN Administration SPASMS/PTSD Donepezil HCl 10 mg 09/10/17 22:00 10/17/17 21:25 Aricept PO 10 mg QHS [facility] Administration Enoxaparin Sodium 40 mg 09/11/17 06:00 10/18/17 06:26 Lovenox SC 40 mg DAILY@0600 YULIYA Administration Insulin Glargine 20 units 10/14/17 18:00 10/18/17 06:27 Lantus ([facility]) SC 20 units BID YULIYA Administration Insulin Human Lispro 13 unit 10/14/17 11:45 10/18/17 12:48 Humalog Kwikpen ([facility]) SC 13 units TIDAC [facility] Administration Loperamide HCl 2 mg 10/05/17 17:38 10/15/17 19:00 Imodium PO 2 mg Q6H PRN PRN Administration Diarrhea Nutritional Formula 1 packet 09/16/17 08:00 10/18/17 08:47 Eleuterio - [place] [facility] Oxy[facility] HCl 5 mg 10/04/17 20:37 10/18/17 10:09 Oxyir PO 5 mg Q6H PRN Administration MODERATE PAIN (4-5/10) Paroxetine HCl 40 mg 10/04/17 22:00 10/17/17 21:25 Paxil PO 40 mg QHS YULIYA Administration Polyethylene Glycol 17 gm 10/15/17 21:27 Miralax PO DAILY PRN CONSTIPATION Polysaccharide Iron Complex 150 mg 10/03/17 08:00 10/18/17 10:08 Ferrex 150 PO 150 mg DAILYCM YULIYA Administration Pregabalin 150 mg 09/17/17 10:26 10/18/17 06:30 Lyrica PO 150 mg BID YULIYA Administration Fluticasone/Salmeterol 1 puff 09/11/17 06:00 10/18/17 06:24 Fluticasone-Salmeterol 232-14 IH 1 puff Q12 YULIYA Administration Senna/Docusate Sodium 2 tablet 10/15/17 21:28 Senokot-S, Shilpi-Colace PO BID PRN PRN CONSTIPATION Sodium Chloride 5 - 30 ml 09/11/17 17:29 09/12/17 12:24 IV 10 ml UD PRN Administration SALINE FLUSH Trazodone HCl 100 mg 10/04/17 20:45 10/17/17 21:25 Desyrel PO 100 mg QHS YULIYA Administration Valsartan 320 mg 09/11/17 06:00 10/18/17 06:24 Diovan PO 320 mg DAILY YULIYA Administration Problem List Olecranon bone spur (Acute) Fracture of olecranon process of ulna (Acute) Fall (Acute) Hyperlipidemia (Chronic) Allergic rhinitis (Chronic) Polyneuropathy (Chronic) Insomnia (Chronic) Vital Signs Temp Pulse Resp BP Pulse Ox 98.1 F 66 18 140/72 H 94 10/17/17 16:00 10/17/17 21:00 10/17/17 21:00 10/17/17 16:00 10/17/17 21:00 Oxygen Delivery Method Room Air Weight: 85.36 kg Body Mass Index (BMI) 25.7 Finger Stick Blood Glucose 204 Sodium 143 mmol/L (136-145) 10/16/17 06:37 Potassium 4.4 mmol/L (3.5-5.1) 10/16/17 06:37 Chloride 110 mmol/L (98-107) H 10/16/17 06:37 Carbon Dioxide 25.0 mmol/L (21.0-32.0) 10/16/17 06:37 Anion Gap 8 (5-15) 10/16/17 06:37 BUN 27 mg/dL (7-18) H 10/16/17 06:37 Creatinine 1.06 mg/dL (0.70-1.30) 10/16/17 06:37 Est GFR (MDRD) Af Amer 91 mL/min (>60) 10/16/17 06:37 Est GFR (MDRD) Non-Af 75 mL/min (>60) 10/16/17 06:37 BUN/Creatinine Ratio 25.5 RATIO (10-20) H 10/16/17 06:37 Glucose 118 mg/dL (74-106) H 10/16/17 06:37 Assessment/Plan: 1) Pain APAP for mild pain, oxycodone for moderate pain, diazepam for spasms, pregabalin. Continue to monitor daily pain scores, prn medication use. 2) HTN Valsartan. Continue to monitor BP, renal function, electrolytes. 3) Pulm Advair inh twice daily. Continue to monitor for shortness of breath. 4) DM2 Insulin glargine twice daily, lispro before meals. Continue to monitor BGT, s /s hyper/hypoglycemia. 5) HLD Atorvastatin daily. Continue to monitor lipids. 6) TBI Donepezil at HS. Continue to monitor clinically. 7) Nutrition Eleuterio, Fe. Continue to monitor clinically. 8) DVT PPx Enoxaparin daily. Continue to monitor s/s bleeding/clot. Psychotropic Medications: 9) Insomnia/Anxiety Trazodone at HS, paroxetine at HS. Continue to monitor for insomnia, s/s serotonin syndrome such as sweating, anxiety, tremor, fever. Unnecessary Medications: None Bowel Regimen: 10) Senna/s, PEG, prn bisacodyl, prn loperamide. Continue to monitor prn medication use, for constipation/diarrhea. Date of Note:: 10/18/17 - Provider Comments Provider responsibility: Provider responsible to enter orders to implement recommendations <Jez Horn Chi - Last Filed: 10/22/17 11:14> Progress Note - Pharmacy Subjective: [] Objective: Allergies gabapentin [From Neurontin] Allergy (Verified 09/23/17 06:47) Other morphine Adverse Reaction (Verified 09/23/17 06:47) CAUSES FLASH BACKS- PTSD Current Medications Generic Name Dose Route Start Last Admin Trade Name Freq PRN Reason Stop Dose Admin Acetaminophen 1,000 mg 09/10/17 19:34 09/21/17 18:10 Tylenol PO 1,000 mg Q8H PRN Administration MILD PAIN (1-3/10) Atorvastatin Calcium 40 mg 10/04/17 20:36 10/21/17 22:06 Lipitor PO 40 mg QHS YULIYA Administration Bisacodyl 10 mg 09/10/17 18:15 Dulcolax PO DAILY PRN Constipation Calamine/Phenol 1 applic 09/11/17 06:00 10/22/17 07:01 Calmoseptine Ointment TOPICAL 1 applicatio BID [facility] Administration Protocol Diazepam 5 mg 09/12/17 14:00 10/22/17 00:29 Valium PO 5 mg Q6H PRN Administration SPASMS/PTSD Donepezil HCl 10 mg 09/10/17 22:00 10/21/17 22:06 Aricept PO 10 mg QHS [facility] Administration Enoxaparin Sodium 40 mg 09/11/17 06:00 10/22/17 07:02 Lovenox SC 40 mg DAILY@0600 [facility] Administration Insulin Glargine 20 units 10/14/17 18:00 10/22/17 09:18 Lantus ([facility]) SC Not Given BID [facility] Insulin Human Lispro 13 unit 10/14/17 11:45 10/22/17 09:19 Humalog Kwikpen ([facility]) SC 13 units TIDAC [facility] Administration Loperamide HCl 2 mg 10/05/17 17:38 10/21/17 15:28 Imodium PO 2 mg Q6H PRN PRN Administration Diarrhea Nutritional Formula 1 packet 09/16/17 08:00 10/22/17 09:06 Eleuterio - [place] Flavor [facility] Oxycodone HCl 5 mg 10/04/17 20:37 10/22/17 09:16 Oxyir PO 5 mg Q6H PRN Administration MODERATE PAIN (4-5/10) Paroxetine HCl 40 mg 10/04/17 22:00 10/21/17 22:05 Paxil PO 40 mg QHS YULIYA Administration Polyethylene Glycol 17 gm 10/15/17 21:27 Miralax PO DAILY PRN CONSTIPATION Polysaccharide Iron Complex 150 mg 10/03/17 08:00 10/21/17 10:57 Ferrex 150 PO 150 mg DAILYCM YULIYA Administration Pregabalin 150 mg 09/17/17 10:26 10/22/17 07:01 Lyrica PO 150 mg BID YULIYA Administration Fluticasone/Salmeterol 1 puff 09/11/17 06:00 10/22/17 07:02 Fluticasone-Salmeterol 232-14 IH 1 puff Q12 YULIYA Administration Senna/Docusate Sodium 2 tablet 10/15/17 21:28 Senokot-S, Shilpi-Colace PO BID PRN PRN CONSTIPATION Sodium Chloride 5 - 30 ml 09/11/17 17:29 09/12/17 12:24 IV 10 ml UD PRN Administration SALINE FLUSH Trazodone HCl 100 mg 10/04/17 20:45 10/21/17 22:05 Desyrel PO 100 mg QHS YULIYA Administration Valsartan 320 mg 09/11/17 06:00 10/22/17 07:01 Diovan PO 320 mg DAILY YULIYA Administration Problem List Olecranon bone spur (Acute) Fracture of olecranon process of ulna (Acute) Fall (Acute) Hyperlipidemia (Chronic) Allergic rhinitis (Chronic) Polyneuropathy (Chronic) Insomnia (Chronic) Vital Signs Temp Pulse Resp BP Pulse Ox 97.2 F L 72 16 100/57 L 96 10/18/17 15:36 10/21/17 22:00 10/21/17 22:00 10/18/17 15:36 10/21/17 22:00 Oxygen Delivery Method Room Air Weight: 85.36 kg Body Mass Index (BMI) 25.7 Finger Stick Blood Glucose 204 Sodium 143 mmol/L (136-145) 10/16/17 06:37 Potassium 4.4 mmol/L (3.5-5.1) 10/16/17 06:37 Chloride 110 mmol/L (98-107) H 10/16/17 06:37 Carbon Dioxide 25.0 mmol/L (21.0-32.0) 10/16/17 06:37 Anion Gap 8 (5-15) 10/16/17 06:37 BUN 27 mg/dL (7-18) H 10/16/17 06:37 Creatinine 1.06 mg/dL (0.70-1.30) 10/16/17 06:37 Est GFR (MDRD) Af Amer 91 mL/min (>60) 10/16/17 06:37 Est GFR ([facility]DRD) Non-Af 75 mL/min (>60) 10/16/17 06:37 BUN/Creatinine Ratio 25.5 RATIO (10-20) H 10/16/17 06:37 Glucose 118 mg/dL (74-106) H 10/16/17 06:37 Assessment/Plan: Psychotropic Medications: Unnecessary Medications: Bowel Regimen: - Provider Comments Provider responsibility: Provider responsible to enter orders to implement recommendations Provider Comments to Recommendations by Pharmacy: Agree
[2017-10-18 15:36] VITALS: BP 100/57; PULSE 77; RESP 16; TEMP 36.2; O2SAT 94
--- NOTE | 2017-10-18 16:36 | NURSING ---
AT 10AM TODAY A LADY FROM [facility] WAS HERE TO TALK TO PT ABOUT HIS PROSTATICS. THIS NURSE WAS IN ROOM. CONVERSATION BETWEEN THE TWO WAS GOING OK THEN THE PT STARTED TO GET ANGRY AND CUSSING AT AND STATED TO HER HE WAS GOING TO [employer]IAN THE COMPANY IF THEY DIDNT HELP HIM AND GIVE HIM WHAT HE WANTED. PT STATED HE WAS VERY UNHAPPY WITH HIS PROSTATICS CAUSE THEY DIDNT FIT RIGHT AND COULDNT GET HIS PANTS ON. THE LADY TRYED TO TELL PT THEY WERE DOING THE BEST THEY CAN AND THE LEFT NEEDED TO HEAL UP FIRST BEFORE THEY COULD GET A CORRECT MEASUREMENT. PT STATED BULLSHIT, YOUR DOCTORS IGNORE ME AND LOOSE ALL MY INFORMATION. LADSarina DID MEASURE BOTH STUMPS AND STATED TO PT THAT SHE WILL DO THE BEST SHE CAN AND SHE WILL LET HER COMPANY KNOW. FROM [facility] WAS POLIGHT AND PROFESSIONAL THE HOLE TIME THIS NURSE WAS THERE AND TRYED TO PLEASE THE PT. PT CALMED DOWN AFTER SHE LEFT AND STATED TO THIS NURSE THAT HE DIDNT WANT TO BE BOTHERED ANY MORE CAUSE HE WANTED TO SLEEP. THIS NURSE LEFT ROOM. REPORTED TO MAGNOLIA PETERSON
[2017-10-18 17:05] LABS: Bedside Glucose 99 mg/dL (70-110)
--- NOTE | 2017-10-18 18:37 | NURSING ---
PT REFUSED HIS HUMALOG. REPORTED TO MAGNOLIA PETERSON
[2017-10-18 18:41] LABS: Bedside Glucose 140 mg/dL (70-110)
[2017-10-18 21:06] LABS: Bedside Glucose 235 mg/dL (70-110)
[2017-10-18 22:00] VITALS: PULSE 78; RESP 16; O2SAT 97
[2017-10-18] MEDS: Donepezil HCl 10 MG Tablet PO (22:22)
[2017-10-18] MEDS: Atorvastatin Calcium 40 MG Tablet PO (22:22)
[2017-10-18] MEDS: traZODone 50 MG Tablet 100 MG PO (22:22)
[2017-10-19] MEDS: Pregabalin 75 MG Capsule 150 MG PO ×2 (05:26→17:55)
[2017-10-19] MEDS: Menthol/Lanolin/Calamine/Znox 113 GM Tube 1 APPLIC TOPICAL ×2 (05:26→17:45)
[2017-10-19] MEDS: Fluticasone/Salmeterol 232-14 Inhaler 1 PUFF IH ×2 (05:27→17:47)
[2017-10-19] MEDS: Enoxaparin 40 MG/0.4 ML Syringe SC (05:27)
[2017-10-19 06:55] LABS: Bedside Glucose 73 mg/dL (70-110)
[2017-10-19] MEDS: oxyCODONE 5 MG Tablet PO ×3 (07:17→21:43)
--- NOTE | 2017-10-19 07:24 | NURSING ---
PATIENT REQUESTED PRN OXY AND GIVEN SAME. LEFT STUMP DRESSING FELL OFF THIS AM. THIS NURSE ATTEMPTED TO PUT NEW DRESSING ON. PATIENT REFUSED DRESSING CHANGE AT THIS TIME. I JUST WANT TO SLEEP AND IT WILL FALL OFF AGAIN BECAUSE OF MY RESTLESS LEGS. PATIENT ALSO REFUSED AM INSULIN AT PRESENT. GLUCOSE 73 THIS AM. THIS NURSE REMINDED PATIENT THAT THIS WAS THE LONG ACTING INSULIN. PATIENT STILL REFUSED TILL I EAT MY BREAKFAST. PATIENT ALSO WANT THIS NURSE TO TELL THE DAY NURSE TO WAKE ME UP AT 830 FOR MY VALIUM . ALL REPORTED TO MAGNOLIA JEREZSPRAY DYEREXHIBITION ORGANISER AND MAGNOLIA ROSARIO DAY SHIFT NURSE.
--- NOTE | 2017-10-19 08:45 | NURSING ---
wound photo: left stump
[2017-10-19 09:36] LABS: Bedside Glucose 140 mg/dL (70-110)
[2017-10-19] MEDS: diazePAM 5 MG Tablet PO ×3 (09:38→22:51)
--- NOTE | 2017-10-19 09:57 | NURSING ---
PT REFUSED TYLER AND HUMALOG. PT STATED A NEVER TAKE HUMALOG, I DONT WANT IT. IT DROPS ME TO FAST. REPORTED TO MAGNOLIA ROSARIO
[2017-10-19 11:41] LABS: Bedside Glucose 332 mg/dL (70-110)
--- NOTE | 2017-10-19 11:48 | MDS.RN ---
Information for the mds was obtained from review of the clinical record, interview of resident, staff, and direct observation of resident's care.
[2017-10-19] MEDS: Insulin Lispro 100 UNIT/ML INSULN.PEN 13 UNIT SC ×2 (12:01→17:49)
--- NOTE | 2017-10-19 12:03 | NURSING ---
PT B.S.WAS 332. TALKED TO PT ABOUT HIM TAKEN HIS HUMALOG. PT AGREED TO LET THIS NURSE GIVE MED. REPORTED TO MAGNOLIA ROSARIO
--- NOTE | 2017-10-19 13:41 | CASEMGMT ---
Brief interview for mental status (BIMS) and resident mood interview (PHQ-9) completed on this day. BIMS score 14/15. PHQ-9 score
--- NOTE | 2017-10-19 14:37 | NURSING ---
DRESSING WAS OFF PT LEG PER THERAPY. THIS NURSE REAPPLIED NEW DRESSING TO PT LEFT STUMP. PT TOLERATED WELL.
--- NOTE | 2017-10-19 15:18 | NURSING ---
PT CALLED OUT TO DESK WANTING HIS WHEEL CHAIR NEXT TO HIM. THIS NURSE WENT BACK AND PT RIGHT AWAY STARTED YELLING ABOUT A RN THAT HE DIDNT WANT HER BACK IN HIS ROOM. PT STATED THAT MARYLOU WOULDNT LET ME HAVE MY WHEEL CHAIR BESIDE ME SO I CAN TRANSFER MYSELF IF I NEED TO GO TO THE BATH ROOM. EXPLAINED TO PT WE DIDNT WANT HIM TO TRANSFER BY HIS SELF. PT STATED I HAVE BEEN DOING THIS FOR 8 MONTHS NOW AND HAVENT HAD A PROBLEM. YOU F###### ARE JUST PLAYING GAMES AND I DONT LIKE IT. THAT RN SLAMMED THE DOOR WHEN SHE LEFT TO. THIS NURSE STARTED AGAIN TO REDRESS HIS WOUND TO LEFT STUMP CAUSE IT CAME OFF AGAIN DO TO PT MOVING ALL OVER THE PLACE WHILE THIS NURSE CALMLY TRIED TO TALK TO PT AND EXPLANE WHY WE WANT TO BE BACK HERE WITH HIM SO HE DONT FALL AND TO PLEASE CALL US IF HE NEEDS TO GO TO THE BATHROOM. PT STATED YOU PEOPLE JUST DONT UNDERSTAND. I WANT TO SHE THE HEAD NURSE CAUSE I WANT TO FILE A DEVORA ANDUJAR THAT NURSE. THIS NURSE TOLD PT I WOULD LET MY CHARGE NURSE KNOW. WAS GETTING READY TO WALK OUT OF PT ROOM WHEN PT WANTED TO GO TO THE BATHROOM. THIS NURSE STAYED WITH PT, PT STATED DO NOT TOUCH ME JUST DO I SAY. I STAYED CLOSE BY WITH PT HE TRANSFERRED HIS SELF TO WHEELCHAIR. FOLLOWED PT IN TO BATHROOM AND STOOD BY PT WHILE HE TRANSFERRED TO TOILET. PT STATED AGAIN, DONT TOUCH ME. THIS NURSE STATED TO PT KYRIE NOT ,BUT KEPT MY HAND ON PT SHIRT. PT ASKED FOR HELP TO PULL HIS PANTS DOWN, WHICH I DID. PT SAFELY ON TOILET. PT STATED I COULD LEAVE AND GET HIM SOME PAIN MEDS . STATED TO PT IF HE WOULD PROMISE TO USE CALL LIGHT WHEN DONE SO I COULD BE IN ROOM WITH HIM. PT STATED HE WOULD. PT DID USE CALL LIGHT AND THIS NURSE STAYED IN ROOM TILL PT SAFELY IN RECLINER. PAIN MED GIVEN,CALL LIGHT AND TABLE IN REACH. REPORTED TO MAGNOLIA ROSARIO
[2017-10-19 17:36] LABS: Bedside Glucose 220 mg/dL (70-110)
--- NOTE | 2017-10-19 21:30 | NURSING ---
Addendum entered by Antonio Verduzco 10/19/17 22:28: HERSON Gregory Original Note: Pt requested this RN remove wheelchair from bedside. Pt states I'll want to get in that thing and leave if it's there. MAGNOLIA Gregory at bedside with patient at this time.
[2017-10-19] MEDS: traZODone 50 MG Tablet 100 MG PO (21:32)
[2017-10-19] MEDS: Donepezil HCl 10 MG Tablet PO (21:32)
[2017-10-19] MEDS: Atorvastatin Calcium 40 MG Tablet PO (21:33)
[2017-10-19 21:36] LABS: Bedside Glucose 326 mg/dL (70-110)
[2017-10-19 22:46] VITALS: PULSE 81; O2SAT 94
[2017-10-20] MEDS: Pregabalin 75 MG Capsule 150 MG PO ×2 (06:10→21:00)
[2017-10-20] MEDS: Enoxaparin 40 MG/0.4 ML Syringe SC (06:11)
[2017-10-20] MEDS: Fluticasone/Salmeterol 232-14 Inhaler 1 PUFF IH ×2 (06:12→18:34)
[2017-10-20] MEDS: Menthol/Lanolin/Calamine/Znox 113 GM Tube 1 APPLIC TOPICAL (06:12)
[2017-10-20 07:01] LABS: Bedside Glucose 173 mg/dL (70-110)
[2017-10-20 11:36] LABS: Bedside Glucose 109 mg/dL (70-110)
[2017-10-20] MEDS: diazePAM 5 MG Tablet PO ×2 (12:06→18:26)
[2017-10-20] MEDS: Iron Polysaccharide Complex 150 MG CAPSULE PO (12:06)
[2017-10-20] MEDS: oxyCODONE 5 MG Tablet PO ×2 (12:07→18:26)
[2017-10-20] MEDS: Insulin Lispro 100 UNIT/ML INSULN.PEN 13 UNIT SC (13:42)
--- NOTE | 2017-10-20 15:08 | PCM.PN.SRG ---
Subjective: Postop #43 Patient is resting comfortably. There are reports that he has been verbally abusive to the staff. He has compliance issues as he is always disrupting the stump dressing. - Physical Exam General: Alert, Oriented x3 HEENT: PERRLA, EOMI Oral: Moist Mucosa Skin: Ulcer/ Wound - left BKA stmp wound is stable. Measures 7 x 9 x 1 cm. Some granulation tissue seen. Surrounding tissue is softer with less swelling and edema. Neurological: Cranial nerves II-XII grossly intact Psych/Mental Status: Normal Affect, Appropriate Vital Signs Temp Pulse Resp BP Pulse Ox 97.2 F L 81 16 100/57 L 94 10/18/17 15:36 10/19/17 22:46 10/18/17 22:00 10/18/17 15:36 10/19/17 22:46 Oxygen Delivery Method Room Air Weight: 188 lb 3 oz Body Mass Index (BMI) 25.7 Finger Stick Blood Glucose 204 Intake and Output for Last 24 Hours 10/18/17 10/19/17 10/20/17 23:59 23:59 23:59 Intake Total 1020 / 1020 240 / 240 Output Total 475 / 475 Balance 545 / 545 240 / 240 POC Glucose 10/20/17 10/20/17 10/19/17 11:29 06:53 21:29 POC Glucose 109 173 H 326 H 10/19/17 17:32 POC Glucose 220 H Medical Necessity - Tobacco Use Smoking Status: Former smoker Tobacco Use: Non-smoker Assessment/Plan All Active Problems Olecranon bone spur (Acute) Fracture of olecranon process of ulna (Acute) Non-healing wound of amputation stump (Acute) Abscess of left knee (Acute) Infection of amputation stump of left lower extremity (Acute) Hematoma of amputation stump of left lower extremity (Acute) Cellulitis and abscess of left leg (Acute) Fall (Acute) 1. Left BKA stump diabetic abscess hematoma. 2. Nonhealing diabetic ulcer left BKA stump. 3. Left inferior knee diabetic abscess. 4. Diabetes mellitus. 5. s/p surgical preparation left BKA stump with incision and drainage and excisional debridement hematoma abscess and nonhealing diabetic ulcer and partial ostectomy left tibia for osteomyelitis and partial secondary closure revision left BKA stump and incision and drainage diabetic abscess left inferior knee. Operative culture was negative. He finished the Augmentin. Pathology was negative for osteomyelitis. Continue wound care with the VAC. Encourage nutritional supplementation with protein to help the healing process. After further improvement in the wound and after more swelling subsides, can consider delayed secondary closure revision of the left BKA stump. After discharge, [facility].
[2017-10-20 17:06] LABS: Bedside Glucose 103 mg/dL (70-110)
[2017-10-20] MEDS: traZODone 50 MG Tablet 100 MG PO (20:59)
[2017-10-20] MEDS: Atorvastatin Calcium 40 MG Tablet PO (21:00)
[2017-10-20] MEDS: Donepezil HCl 10 MG Tablet PO (21:00)
[2017-10-20 21:13] VITALS: PULSE 76; RESP 18; O2SAT 94
[2017-10-20 21:55] LABS: Bedside Glucose 214 mg/dL (70-110)
[2017-10-21] MEDS: Pregabalin 75 MG Capsule 150 MG PO ×2 (03:38→16:20)
[2017-10-21] MEDS: Enoxaparin 40 MG/0.4 ML Syringe SC (03:41)
[2017-10-21] MEDS: Menthol/Lanolin/Calamine/Znox 113 GM Tube 1 APPLIC TOPICAL ×2 (03:42→16:20)
[2017-10-21] MEDS: Fluticasone/Salmeterol 232-14 Inhaler 1 PUFF IH ×2 (03:43→18:03)
[2017-10-21 07:06] LABS: Bedside Glucose 79 mg/dL (70-110)
--- NOTE | 2017-10-21 07:09 | NURSING ---
pt BS 79 this morning given orange juice at this time. Rn aware.
[2017-10-21] MEDS: diazePAM 5 MG Tablet PO ×2 (10:57→18:02)
[2017-10-21] MEDS: Iron Polysaccharide Complex 150 MG CAPSULE PO (10:57)
[2017-10-21] MEDS: oxyCODONE 5 MG Tablet PO ×2 (10:58→18:02)
[2017-10-21] MEDS: Insulin Lispro 100 UNIT/ML INSULN.PEN 13 UNIT SC (11:00)
[2017-10-21 11:06] LABS: Bedside Glucose 164 mg/dL (70-110)
[2017-10-21] MEDS: Loperamide 2 MG Capsule PO (15:28)
--- NOTE | 2017-10-21 15:38 | NURSING ---
pt out of shower with therapy and drsg off lt stump again. pt focuses on one task at a time and very percise on steps to accomplish. pt showing therapy how to do wc chair transfer even though reinstructed that was not independent yet to do so on own. pt stated, i made myself independent leg rerapped with w-d drsg and covered with oswald wrap. pt to chair and call light in reach. pt asking for immodium and saying that someone put a laxative in my food or medicine cup this am and now i have diarrhea! i never have diarrhea in my life and never take laxatives pt also scratching rt inner thigh area saying has diaper rash and cant stop scratching because hasnt had cream no rash obs during shower or after but pt scratching leg and head now. aware that calmoseptine cream ordered.
--- NOTE | 2017-10-21 16:21 | PCA ---
Resident called out from the bathroom. This aide went into resident's room to assist resident back to his recliner from the toilet. Resident began complaining about have a diaper rash under his prosthetic and that he had called out two hours ago to have medicine put on it. Resident stated that willy morris was in such a perez to leave his room that she did not look around to find the cream. Resident was referring to PT who had been in his room giving him a shower. I told resident that I needed to check with his nurse to see what I was supposed to use for his rash and went to ask MAGNOLIA Dietrich. I went back to resident's room and assisted him with putting celeste on his leg and assisted him back into his recliner. Resident thanked me for helping him. RN was notified
[2017-10-21 17:01] LABS: Bedside Glucose 121 mg/dL (70-110)
[2017-10-21 21:16] LABS: Bedside Glucose 241 mg/dL (70-110)
[2017-10-21 22:00] VITALS: PULSE 72; RESP 16; O2SAT 96
[2017-10-21] MEDS: traZODone 50 MG Tablet 100 MG PO (22:05)
[2017-10-21] MEDS: Atorvastatin Calcium 40 MG Tablet PO (22:06)
[2017-10-21] MEDS: Donepezil HCl 10 MG Tablet PO (22:06)
[2017-10-22] MEDS: oxyCODONE 5 MG Tablet PO ×3 (00:10→16:38)
[2017-10-22] MEDS: diazePAM 5 MG Tablet PO ×3 (00:29→20:02)
[2017-10-22] MEDS: Pregabalin 75 MG Capsule 150 MG PO ×2 (07:01→17:35)
[2017-10-22] MEDS: Menthol/Lanolin/Calamine/Znox 113 GM Tube 1 APPLIC TOPICAL ×2 (07:01→17:33)
[2017-10-22] MEDS: Fluticasone/Salmeterol 232-14 Inhaler 1 PUFF IH ×2 (07:02→17:32)
[2017-10-22] MEDS: Enoxaparin 40 MG/0.4 ML Syringe SC (07:02)
[2017-10-22 07:10] LABS: Bedside Glucose 74 mg/dL (70-110)
[2017-10-22] MEDS: Insulin Lispro 100 UNIT/ML INSULN.PEN 13 UNIT SC (09:19)
[2017-10-22 09:21] LABS: Bedside Glucose 109 mg/dL (70-110)
[2017-10-22] MEDS: Iron Polysaccharide Complex 150 MG CAPSULE PO (12:01)
[2017-10-22 12:06] LABS: Bedside Glucose 154 mg/dL (70-110)
[2017-10-22 13:30] VITALS: PULSE 82; RESP 18; O2SAT 97
--- NOTE | 2017-10-22 13:30 | NURSING ---
PT REFUSED HIS NOON DOSE OF HUMALOG.
[2017-10-22 16:00] VITALS: BP 137/58; PULSE 82; RESP 22; TEMP 36.6; O2SAT 96
--- NOTE | 2017-10-22 16:02 | NURSING ---
AT 8AM THIS MORNING,PT CALLED THIS NURSE TO HIS ROOM. PT STATED THAT I DONT WANT THAT AID BACK IN MY ROOM. SHE THREW THE BUTTER DOWN ON MY TRAY AND WALKED AWAY AND I COULD HERE HER ON THE INTERCOM SAYING I DONT CARE THATS FINE HE DONT HAVE TO LIKE ME CAUSE I DONT LIKE HIM,F### HIM. I WANT TO FILE A COMPLAINT AND I WANT HER FIRED. GILBERTO ROBERT IS IN ROOM WITH THIS NURSE. PT YELLED AT ME SAYING ,YOU JUST STICK UP FOR ALL THE AIDS,YOU WONT DO ANYTHING ABOUT IT. THIS NURSE STATED TO PT THAT I WOULD TELL THE CHARGE NURSE. PT STATED I DONT CARE IF YOUR MADE AT ME, I DONT LIKE SOME ONE SAYING F### YOU TO ME. THATS NOT RIGHT,KYRIE THE PT. I DONT SAY F### IN FRONT OF A LADY. THIS NURSE STATED TO PT ,YOU JUST DID IN FRONT OF ME. PT APOLOGIZED TO THIS NURSE. PT STATED I WANT HER FIRED AND YOUR NOT GOING TO DO ANYTHING CAUSE YOUR NOT SAYING ANYTHING. THIS NURSE STATED TO PT, KYRIE GOING TO TALK TO YOU IN A CALM MATTER AND LISTEN TO EVERYTHING YOU SAY. I WILL TALK TO YOU WHEN YOUR DONE TALKING CAUSE THERES NO REASON TO INTERRUPT YOU AND GET MAD AND YELL LIKE YOU ARE DOING CAUSE IT WILL JUST UP SET YOU MORE. PT STATED OK,THANK YOU. PT STATED CAN YOU PLEASE CUT UP MY FOOD FOR ME CAUSE I CANT DO IT WITH MY HANDS, THATS ALL I WANTED FROM THAT AID. THIS NURSE CUT PT FOOD UP,GOT PT COMFORTABLE,CALL LIGHT IN REACH. PT STATED TO THIS NURSE ,LET ME KNOW WHAT THE MIME ARTIST SAYS. REPORTED TO MAGNOLIA IBARRA
--- NOTE | 2017-10-22 16:33 | NURSING ---
DAUGHTER IN VISITING PT.
[2017-10-22 17:05] LABS: Bedside Glucose 308 mg/dL (70-110)
--- NOTE | 2017-10-22 17:39 | NURSING ---
PT REFUSED HUMALOG. REPORTED TO MAGNOLIA IBARRA
[2017-10-22] MEDS: traZODone 50 MG Tablet 100 MG PO (20:07)
[2017-10-22] MEDS: Atorvastatin Calcium 40 MG Tablet PO (20:08)
[2017-10-22] MEDS: Donepezil HCl 10 MG Tablet PO (20:08)
--- NOTE | 2017-10-22 20:23 | NURSING ---
At 1954 pt called desk asking for narcotics. This nurse went to room with only valium as prn oxyir 5mg not due for several hours. Pt immediately angered by this. Was upset his call light controls for overhead lights was not working and said it has not been working for weeks, though one of the lights was on. This nurse noticed it was not plugged into wall and said 'oh it's not plugged in that's why- and pt interrupted very angrily and yelled Well I didn't do it someone else did they're messing with me! While plugging in call light pt slid out of recliner chair and onto floor, onto buttocks. Did not hit head. With assist of one LOAF COUNTER pt was assisted into wheelchair that has only one side handle on it, he will not allow the other, the right side, to be put on. Pt very angry with staff stating Don't you dare say a word, what happens in this room stays in this room you got it? Vitals taken and were in normal range for pt. Elvira MERIDA notified daughter Pushpa, Dr. Horn, and design supervisor. Message sent to Rena director community center and ANJALI Singh nurse. Continuing to monitor and encourage pt to use call light and not self transfer but pt only becomes agitated with this.
[2017-10-22 21:56] LABS: Bedside Glucose 303 mg/dL (70-110)
[2017-10-23] MEDS: oxyCODONE 5 MG Tablet PO ×3 (05:07→17:59)
[2017-10-23] MEDS: Pregabalin 75 MG Capsule 150 MG PO ×2 (05:07→17:59)
[2017-10-23] MEDS: Fluticasone/Salmeterol 232-14 Inhaler 1 PUFF IH ×2 (05:07→17:41)
[2017-10-23] MEDS: Enoxaparin 40 MG/0.4 ML Syringe SC (05:08)
[2017-10-23] MEDS: Menthol/Lanolin/Calamine/Znox 113 GM Tube 1 APPLIC TOPICAL ×2 (05:08→17:40)
[2017-10-23 07:01] LABS: Bedside Glucose 139 mg/dL (70-110)
[2017-10-23] MEDS: Iron Polysaccharide Complex 150 MG CAPSULE PO (11:03)
[2017-10-23 11:16] LABS: Bedside Glucose 242 mg/dL (70-110)
[2017-10-23] MEDS: diazePAM 5 MG Tablet PO (15:27)
--- NOTE | 2017-10-23 15:50 | NURSING ---
PT WANTING OUT OF BED, LT STUMP NEEDS REDRESSED AND REQUESTING NARCOTIC PAIN MED. PT GOES FROM ONE SUBJECT TO THE NEXT WITHOUT WAITING FOR COMPLETION OF FIRST SUBJECT THEN BECOMES SL AGITATED WHEN REQUESTS AREN'T BEING MET IMMEDIATELY. PT INSTRUCTED/ENCOURAGED TO SLOW DOWN AND COMPLETE ONE TASK AT A TIME AND HIS NEEDS WILL BE MET. PT CALMS. THIS NURSE AND AUDITOR SUPERVISOR REDRESS LT STUMP. ASSIST PT TO PUT SWEATS ON AND TRANSFER TO W/C. RN THEN CUT RT PANT LEG ON INSEAM PER PT REQUEST. PT THEN PUTS RT PROSTHETIC ON W/ASSIST FROM NURSE. PT ASSISTED TO RECLINER CHAIR WITH ASSIST FROM AUDITOR SUPERVISOR AND NURSE (NURSE STANDING OFF TO SIDE PT REQUEST). PT ASKED TO KEEP W/C IN REACH BUT STATES HE WILL CALL FOR ASSIST WHEN HE NEEDS TO TRANSFER TO W/C.
[2017-10-23 16:00] VITALS: BP 160/90; PULSE 74; RESP 16; TEMP 36.4; O2SAT 100
[2017-10-23 17:51] LABS: Bedside Glucose 247 mg/dL (70-110)
[2017-10-23] MEDS: Donepezil HCl 10 MG Tablet PO (20:51)
[2017-10-23] MEDS: traZODone 50 MG Tablet 100 MG PO (20:51)
[2017-10-23] MEDS: Atorvastatin Calcium 40 MG Tablet PO (20:52)
[2017-10-24] MEDS: oxyCODONE 5 MG Tablet PO ×2 (01:14→09:35)
[2017-10-24] MEDS: Pregabalin 75 MG Capsule 150 MG PO ×2 (06:50→18:04)
[2017-10-24] MEDS: Menthol/Lanolin/Calamine/Znox 113 GM Tube 1 APPLIC TOPICAL ×2 (06:50→17:57)
[2017-10-24] MEDS: Enoxaparin 40 MG/0.4 ML Syringe SC (06:50)
[2017-10-24] MEDS: Fluticasone/Salmeterol 232-14 Inhaler 1 PUFF IH ×2 (06:50→17:57)
[2017-10-24 06:51] LABS: Bedside Glucose 110 mg/dL (70-110)
[2017-10-24] MEDS: diazePAM 5 MG Tablet PO ×3 (06:57→22:00)
[2017-10-24] MEDS: Insulin Lispro 100 UNIT/ML INSULN.PEN 13 UNIT SC (09:37)
[2017-10-24 10:00] VITALS: PULSE 78; RESP 16; O2SAT 96
[2017-10-24 11:21] LABS: Bedside Glucose 158 mg/dL (70-110)
--- NOTE | 2017-10-24 17:55 | PCA ---
Pt asking to be dressed. Pt agitated with me because I stated to him that it was time to get ready for bed not get up and get dressed for the day. Pt stated that this was a longterm and he could get up and dressed as many times as he wanted to a day. Pt threw his glasses at me for not doing as he asked.
--- NOTE | 2017-10-24 18:42 | NURSING ---
Addendum entered by Alana White 10/24/17 19:07: dr green notified, no new orders. vitals stable. pt denies hitting head, sat right on buttocks from recliner chair. Original Note: Staff noticed on room camera that Pt was on floor Pt then called out with call light stating he had to go to the bathroom. Pt then attempted to get up and fell again after this nurse entered room. This nurse along with Eloise MERIDA assisted Pt to wheel chair and transferred him into bathroom. this nurse then assisted Pt out of bathroom into his recliner. Pt blaming the pillows that were in his chair, claiming that staff put the slippery pillows in his chair Pt wound dressing is off again, Pt refusing to have it covered at this time stating that solo making him keep it covered, is making it worse Pt. made aware that he needs to call out for help when he needs it, Pt stated maybe this nurse put call light within his reach and elevated his feet.
[2017-10-24 19:02] VITALS: BP 135/70; PULSE 100; RESP 18; TEMP 36.9; O2SAT 90
[2017-10-24] MEDS: Donepezil HCl 10 MG Tablet PO (20:03)
[2017-10-24] MEDS: Atorvastatin Calcium 40 MG Tablet PO (20:04)
[2017-10-24] MEDS: traZODone 50 MG Tablet 100 MG PO (20:04)
[2017-10-25] MEDS: Menthol/Lanolin/Calamine/Znox 113 GM Tube 1 APPLIC TOPICAL ×2 (03:51→17:07)
[2017-10-25] MEDS: oxyCODONE 5 MG Tablet PO ×3 (03:52→18:52)
[2017-10-25] MEDS: Pregabalin 75 MG Capsule 150 MG PO ×2 (03:53→17:10)
[2017-10-25] MEDS: Enoxaparin 40 MG/0.4 ML Syringe SC (03:54)
[2017-10-25] MEDS: Fluticasone/Salmeterol 232-14 Inhaler 1 PUFF IH ×2 (03:54→17:06)
[2017-10-25 06:05] LABS: Absolute Lymphocyte Count 1.31 X10^3/ul (0.83-4.51); Absolute Neutrophil Count 2.1 X10^3/uL (2.0-7.7); Basophil# 0.02 X10^3/uL; Basophil% 0.5 % (0-1); Eosinophil# 0.21 X10^3/uL; Eosinophils% 5.1 % (0-5); Hematocrit 28.5 % (40-54); Hemoglobin 9.4 g/dl (13.0-16.5); Lymphocyte # 1.31 X10^3/ul (4.0); Mean Corpuscular Hgb 29.7 pg (27.0-32.0); Mean Corpuscular Volume 90.2 fL (80-94); Mean Platelet Vol. 9.9 fl (6.2-12.0); Monocyte# 0.47 X10^3/uL; Monocyte% 11.5 % (0-10); Neutrophil # 2.09 X10^3/uL (2.7-7.7); Neutrophil % 50.9 % (47-70); Platelet Count 268 K/mm3 (150-450); RBC Distribution Width CV 13.3 % (11.6-14.6); Red Blood Count 3.16 M/mm3 (4.6-6.2); White Blood Count 4.1 K/mm3 (4.4-11.0)
[2017-10-25 06:06] LABS: POSITIVE COUNT NO; POSITIVE DIFFERENTIAL NO; POSITIVE MORPHOLOGY NO
[2017-10-25 06:28] LABS: Anion Gap 9 (5-15); BUN 21 mg/dL (7-18); BUN/Creat Ratio 21.9 RATIO (10-20); Calcium,Total 8.7 mg/dL (8.5-10.1); Chloride 109 mmol/L (98-107); Creatinine, Serum 0.96 mg/dL (0.70-1.30); EST Glomerular Filtration Rate 84 mL/min (>60); Est Glom Filt Rate - Afr Amer 102 mL/min (>60); Estimated Creatinine Clearance 84.97 ml/min; Glucose 101 mg/dL (74-106); Potassium 4.4 mmol/L (3.5-5.1); Sodium Level 143 mmol/L (136-145)
[2017-10-25 06:45] LABS: Bedside Glucose 116 mg/dL (70-110)
[2017-10-25] MEDS: diazePAM 5 MG Tablet PO ×2 (08:55→17:04)
[2017-10-25] MEDS: Iron Polysaccharide Complex 150 MG CAPSULE PO (08:56)
--- NOTE | 2017-10-25 10:19 | NURSING ---
PT REFUSING TO LET THIS NURSE APPLY NEW DRESSING TO LEFT STUMP.,WOUND OPEN. EXPLAINED TO PT ABOUT THAT IT NEEDED TO BE COVERED TO HELP HEAL AND KEEP OUT INFECTION. PT STATED ITS FINE RIGHT NOW. CONTINUED TO TALK TO PT ABOUT THE CARE THAT IT NEEDS. PT STATED I WILL LET YOU PUT A DRESSING ON IT AFTER MY SHOWER AT 1:30 BUT I WANT TO GET A SECOND AMPION I DONT THINK CARES OR HE HAS TO MANY PATIENTS. STATED TO PT I WOULD LET THE CHARGE NURSE KNOW. MAGNOLIA KIMBROUGH AWARE
[2017-10-25 11:31] LABS: Bedside Glucose 263 mg/dL (70-110)
--- NOTE | 2017-10-25 12:00 | NURSING ---
PT B.S WAS 263. PT REFUSED HUMALOG. REPORTED TO MAGNOLIA KIMBROUGH
[2017-10-25 14:30] VITALS: PULSE 70; RESP 18; O2SAT 94
--- NOTE | 2017-10-25 15:31 | NURSING ---
PT GAVE THE OK FOR THIS NURSE TO PUT A NEW DRESSING ON HIS LEFT STUMP.
[2017-10-25 16:00] VITALS: BP 118/62; PULSE 85; RESP 18; TEMP 36.3; O2SAT 94
[2017-10-25 17:01] LABS: Bedside Glucose 197 mg/dL (70-110)
--- NOTE | 2017-10-25 18:49 | NURSING ---
THIS NURSE REDID PT DRESSINGS AGAIN DUE TO PT PULLING PANT LEG UP AND DOWN.
[2017-10-25] MEDS: Donepezil HCl 10 MG Tablet PO (21:38)
[2017-10-25] MEDS: Atorvastatin Calcium 40 MG Tablet PO (21:38)
[2017-10-25] MEDS: traZODone 50 MG Tablet 100 MG PO (21:39)
[2017-10-25 21:55] LABS: Bedside Glucose 306 mg/dL (70-110)
[2017-10-26] MEDS: diazePAM 5 MG Tablet PO ×3 (00:27→18:24)
[2017-10-26] MEDS: oxyCODONE 5 MG Tablet PO ×3 (01:23→15:30)
[2017-10-26] MEDS: Menthol/Lanolin/Calamine/Znox 113 GM Tube 1 APPLIC TOPICAL ×2 (06:39→18:29)
[2017-10-26] MEDS: Enoxaparin 40 MG/0.4 ML Syringe SC (06:40)
[2017-10-26] MEDS: Fluticasone/Salmeterol 232-14 Inhaler 1 PUFF IH ×2 (06:40→18:24)
[2017-10-26] MEDS: Pregabalin 75 MG Capsule 150 MG PO ×2 (06:45→18:23)
[2017-10-26 06:51] LABS: Bedside Glucose 123 mg/dL (70-110)
[2017-10-26] MEDS: Iron Polysaccharide Complex 150 MG CAPSULE PO (08:27)
[2017-10-26 11:03] VITALS: PULSE 71; RESP 18; O2SAT 98
--- NOTE | 2017-10-26 11:03 | NURSING ---
PT REFUSED HUMALOG AT BREAKFAST TIME.
--- NOTE | 2017-10-26 11:03 | MDS.RN ---
Information for the mds was obtained from review of the clinical record, interview of resident, staff, and direct observation of resident's care.
[2017-10-26 11:56] LABS: Bedside Glucose 147 mg/dL (70-110)
--- NOTE | 2017-10-26 14:27 | CASEMGMT ---
Social Work Meeting with resident in room to collaborate on a discharge plan. Resident continues to state that resident is not leaving facility until wound is healed. This social worker palliative care clarifying with resident that it can take a long time for a wound to heal and that resident may not be able to stay in currently facility until would is healed. Resident voicing frustration to this. This social worker palliative care offering emotional support and was able to de-escalate resident on own. Resident is not agreeable to this social worker palliative care looking into other facilities that would be medicaid certified (this facility is currently not medicaid certified). Resident reporting to want to continue with stay. This social worker palliative care stressing the importance of having a discharge plan. Resident reporting that resident discharge plan is to return home with brother after wound is healed. Support given. Will continue to follow. Dai HARTLEY, PROCESS TECHNICIAN
[2017-10-26 16:00] VITALS: BP 153/79; PULSE 77; RESP 18; TEMP 36.4; O2SAT 99
--- NOTE | 2017-10-26 16:25 | NURSING ---
THIS NURSE WENT TO PT ROOM TO REDRESS PT WOUND,HERSON NOVA WITH ME. PT STATED, KYRIE VERY PISSED OFF CAUSE THERE KICKING ME OUT OF HEAR AND I DIDNT ASK TO COME HERE. KYRIE NOT LEAVING ,KYRIE GOING TO CALL MY PIT TANNER. I CANT WALK AND MY WOUND NOT HEALED. MY DOCTOR SAID THIS PLACE IS A JOKE. PT ASKED THIS NURSE TO ASK DOCTOR IF HE COULD HAVE MORE PAIN MEDS OR SOMETHING DUE TO HIM BEING VERY UPSET AND VERY HARD TO DEAL WITH GETTING KICKED OUT. THIS NURSE STATED TO PT I WOULD REPORT IT TO THE RN. PT THEN ASKED FOR US BOTH TO TAKE HIM TO THE BATHROOM. PT TRANSFERRED HIS SELF TO WHEEL CHAIR AND TOILET AND STATED TO HERSON NOVA NOT TO TOUCH HIM. THIS NURSE STATED TO PT TO PULL CALL LIGHT WHEN DONE. PT STATED OK. REPORTED TO MAGNOLIA MARTIN
[2017-10-26 17:11] LABS: Bedside Glucose 174 mg/dL (70-110)
--- NOTE | 2017-10-26 17:18 | NURSING ---
pt self transferring x2 despite staff education. Pt states he can do it just fine and has been doing it for 28 years. Education regarding safety and staff assistance given to pt with ill effect. Pt currently in recliner watching television with call light in reach.
--- NOTE | 2017-10-26 18:19 | NURSING ---
Pt has c/o anxiety, NO for ativan 1mg PO [id number] PRN. Patient requesting second opinion for wound to left stump, NO to consult general surgery tomorrow morning.
--- NOTE | 2017-10-26 18:55 | NURSING ---
PT REFUSED HUMALOG FOR LUNCH AND SUPPER. PT HAS BEEN ALSO ASKING THIS NURSE TO HELP HIM TO BATH ROOM LONG I DONT TOUCH HIM.. REPORTED TO MAGNOLIA KIMBROUGH
[2017-10-26] MEDS: Donepezil HCl 10 MG Tablet PO (19:58)
[2017-10-26] MEDS: traZODone 50 MG Tablet 100 MG PO (19:58)
[2017-10-26] MEDS: Atorvastatin Calcium 40 MG Tablet PO (19:59)
--- NOTE | 2017-10-26 21:45 | NURSING ---
Pt transferred self into wheelchair and came to nurses station, demanding to speak to this nurse and Aby FLOORMAN who is working as a CARPENTER ROUGH. This evening we were the staff to assist him to bathroom as well as give him scheduled meds which were explained to him prior to administration. In the hallway, pt was extremely confrontational, yelling, wildly swinging arms and making untrue accusations against staff, not allowing anyone to get a word in. Stated I've been pissed off all day and I'm LOOKING for someone to take it out on! I dare you! Don't touch my stuff you don't touch my stuff this is all just helping my lawsuit against you all. When RN tried to step in as he was yelling and being threatening against this FLOORMAN, he rolled his wheelchair quickly and in a confrontational way, forcing her to step back and out of his way. He said I have rights are you even in the medical field? 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 to this FLOORMAN, who said there is no need to be disrespectful. Everyone here is trying to help you. We are doing our best to keep you safe He interrupted and said You're all friends and think you can treat me this way this is going in my lawsuit I've had this talk with you six times already and I'm tired of it Pt was told that he has never had an issue with this nurse before right now and he said that was a lie. He said again, 'you are all friends and think you can treat me this way and I'm not having it. Give me a reason to get mad I want to take it out on someone Again, positioning himself very close to staff in a threatening manor. Elvira RN attempted to intervene again, saying 'Do not speak to my FLOORMAN that way, we are trying to help you and pt again made false accusations and stated he is 'never leaving and you can't make me you are all liars and this is going in my lawsuit.' Security was called and is in room talking to patient who is continuing to state lies about staff, saying he was cussed out, staff has laughed at him and told him to fuck off, saying the aides told him fuck you I'm tired of cutting up your fucking food. Pt will not accept that this has never happened. Each time patient retells the story more swear words are added as well as other people he says were involved. He is demanding to know why the staff he does not like are still employed. There is no way to calm pt down, or tell him anything that is not what he is claiming. He has been up and down the halls screaming, swearing and being disruptive towards staff and other patients. With security trying to explain things to him, including the things staff has to follow to take care of him, he started making false accusations about staff 'grabbing my privates thats gross sexual imposition!' He is becoming more and more upset and making false and absurd accusations, there is no talking to pt, calming him down, redirecting pt, anything. He said Guess what I just got approved for another 30 days and I'm not going anywhere! You think I don't know my rights? Stop playing these childish games and tell her to leave me the hell alone! Tell her I don't care she can't come in my room! This bullshit is bullshit! I've been doing this shit for 19 years! They want to control me! They think they can control me and do whatever they want! I have rights!' He is now demonstrating to [facility] and Aby how staff is to leave wheelchair for his access whenever he wants, by himself with no assistance from staff, insisting he is allowed to do and say anything he wants because of 'my rights' and saying staff has spoken to him in a way that is unacceptable and should not be tolerated. When security reminded pt of the way he is speaking to staff, he becomes angrier and continues to yell accusations and lies. At this time managing supervisor is in room attempting to deescalate the situation.
--- NOTE | 2017-10-26 22:49 | NURSING ---
Immediately after pt had somewhat calmed down, allowing smoke jumper supervisor, security, and staff to exit room, pt stated he wanted this nurse, HERSON, to change his dressing, 'right now'. This nurse entered room with supplies, Aby BAINS and corporate security manager Chaz. Pt scoffed at this asking what you think I'm going to hit you or something you think you need to bring security in here? You're embarrassing Staff was nothing but kind polite and accommodating to patient during dressing change. Pt said You think I've banned you from my room? I haven't so you have to come in here while smiling, to this nurse. Leg was dressed per order, pt refused TAD wrap over kerlex. Pt repositioned, pillows moved, until pt stated he was comfortable and staff left room. Immediately call light was on and pt asked this nurse to come back to room and move chair. In room, pt stated he wanted recliner chair moved to other side of the bed saying after therapy they like to put me in the chair like a retard. Staff did not respond to this, only asked again if things were to his liking to which he said yes. Staff exited room, pt has call light.
[2017-10-27] MEDS: Menthol/Lanolin/Calamine/Znox 113 GM Tube 1 APPLIC TOPICAL ×2 (05:51→17:18)
[2017-10-27] MEDS: Fluticasone/Salmeterol 232-14 Inhaler 1 PUFF IH ×2 (05:52→17:13)
[2017-10-27] MEDS: Enoxaparin 40 MG/0.4 ML Syringe SC (05:52)
[2017-10-27] MEDS: Pregabalin 75 MG Capsule 150 MG PO ×2 (05:53→17:13)
--- NOTE | 2017-10-27 05:57 | NURSING ---
Dr. Anguiano consulted per Dr. Horn's orders to consult general surgery today. States that someone will be up to talk with patient.
[2017-10-27] MEDS: oxyCODONE 5 MG Tablet PO ×3 (06:00→20:19)
[2017-10-27 06:56] LABS: Bedside Glucose 143 mg/dL (70-110)
[2017-10-27] MEDS: Iron Polysaccharide Complex 150 MG CAPSULE PO (07:52)
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
[2017-10-27 10:00] VITALS: RESP 18
[2017-10-27 11:20] LABS: Bedside Glucose 365 mg/dL (70-110)
--- NOTE | 2017-10-27 11:48 | NURSING ---
pt blood glucose level prior to lunch 365. Pt refused 13 units of ordered humalog despite education provided by this nurse. Pt states I'm not taking that, it will make me sick and my blood sugar will drop into the 40s, so no I'm not going to take it! Pt asymptomatic at this time, will continue to monitor.
[2017-10-27] MEDS: LORazepam 1 MG Tablet PO ×2 (13:19→20:19)
[2017-10-27 16:00] VITALS: BP 136/75; PULSE 74; RESP 16; TEMP 36.7; O2SAT 99
[2017-10-27 17:25] LABS: Bedside Glucose 283 mg/dL (70-110)
--- NOTE | 2017-10-27 19:06 | NURSING ---
pt removing dressing to left stump multiple times this shift despite staff education. Pt also refusing scheduled humalog. Blood glucose 283. This nurse educated and pt continued to refuse.
[2017-10-27] MEDS: traZODone 50 MG Tablet 100 MG PO (20:20)
[2017-10-27] MEDS: Atorvastatin Calcium 40 MG Tablet PO (20:20)
[2017-10-27] MEDS: Donepezil HCl 10 MG Tablet PO (20:20)
[2017-10-28 06:46] LABS: Bedside Glucose 159 mg/dL (70-110)
[2017-10-28] MEDS: Menthol/Lanolin/Calamine/Znox 113 GM Tube 1 APPLIC TOPICAL ×2 (06:56→18:06)
[2017-10-28] MEDS: Pregabalin 75 MG Capsule 150 MG PO ×2 (06:57→18:04)
[2017-10-28] MEDS: Fluticasone/Salmeterol 232-14 Inhaler 1 PUFF IH ×2 (06:57→18:04)
[2017-10-28] MEDS: Enoxaparin 40 MG/0.4 ML Syringe SC (06:57)
[2017-10-28] MEDS: oxyCODONE 5 MG Tablet PO ×3 (07:06→22:11)
[2017-10-28] MEDS: Iron Polysaccharide Complex 150 MG CAPSULE PO (07:59)
[2017-10-28 10:00] VITALS: PULSE 67; RESP 16; O2SAT 95
--- NOTE | 2017-10-28 10:51 | CASEMGMT ---
Social Work Met with resident in room. This renal social worker collaborating with resident on discharge plan. Resident is now requesting for this renal social worker to make a referral to the [facility]. Resident also educated on 100 Medicare days and that this facility is not Medicaid certified so once resident Medicare days would be used up resident would need to transition by then. Resident voicing understanding but interested in transitioning sooner if the [facility] would accept resident. Support given. [facility] information faxed for referral. [facility] voicing to have an opening at this time and to get back to this renal social worker with outcome of referral. Will continue to follow. Dai HARTLEY, SPRINKLER INSTALLER
[2017-10-28 11:26] LABS: Bedside Glucose 195 mg/dL (70-110)
[2017-10-28] MEDS: LORazepam 1 MG Tablet PO (11:28)
--- NOTE | 2017-10-28 13:15 | CASEMGMT ---
Brief interview for mental status (BIMS) and resident mood interview (PHQ-9) completed on this day. BIMS score 14/15. PHQ-9 score
--- NOTE | 2017-10-28 13:20 | CASEMGMT ---
[facility] be able to accept resident as soon as tomorrow. Spoke with resident in room. Resident is choosing to discharge on 10/29/17 to the [facility]. Resident reporting to need transportation to be set up via wheelchair van. Resident daughter aware of all discharge information as well. Resident to discharge skilled to the [facility]. Support given. [facility]RR completed in [facility] and results faxed to the [facility]. Telephone call to Deepika/Darren, Transportation set up for 10/29/17 @ 2:00pm. Transportation form completed and placed with resident discharge information. Will fax discharge instructions to the [facility] when obtained. Proposed discharge date: 10/29/17 PLAN: Discharge to the [facility] skilled. Dai HARTLEY, YARN DYER
--- NOTE | 2017-10-28 14:55 | NURSING ---
Wound Vac 150 suction applied to RT residual limb wound. covered with TAD wraps.
[2017-10-28 17:26] LABS: Bedside Glucose 285 mg/dL (70-110)
[2017-10-28] MEDS: diazePAM 5 MG Tablet PO (19:53)
[2017-10-28] MEDS: Atorvastatin Calcium 40 MG Tablet PO (19:54)
[2017-10-28] MEDS: Donepezil HCl 10 MG Tablet PO (19:54)
[2017-10-28] MEDS: traZODone 50 MG Tablet 100 MG PO (19:54)
[2017-10-28 21:06] LABS: Bedside Glucose 333 mg/dL (70-110)
--- NOTE | 2017-10-28 21:41 | PCM.TXEXTCAR ---
- Diet 09/15/17 09:56 Diet: Regular Diet Is pt able to select menu?: Yes Diet Comments: Cup with lid and scoop plate - Routine Orders/Code Status Suppository Type: Dulcolax 10mg Suppository Frequency: Daily PRN Code Status: DNRCC - Wound(s) Left Leg Wound Type: Surgical Incision Dressing Change: vac in place, applied 09/10 left anterior stump Wound Type: I & D incision Dressing Change: Wet to Dry Dressing left distal stump Wound Type: Surgical Incision Dressing Change: KCI wound vac - Therapies Weight Bearing: Partial weight bearing Extremity Affected:: Bilateral Lower Physical Therapy: Eval and Treat Occupational Therapy: Eval and Treat - Problem/Diagnosis (1) Fall Status: Acute Current Visit: Yes (2) Hyperlipidemia Status: Chronic Current Visit: Yes (3) Allergic rhinitis Status: Chronic Current Visit: Yes (4) Polyneuropathy Status: Chronic Current Visit: Yes (5) Insomnia Status: Chronic Current Visit: Yes (6) Cellulitis and abscess of left leg Status: Acute Comment: cultures at the time of surgery negative but erythema has resolved Current Visit: No (7) Depression Status: Chronic Current Visit: No (8) Traumatic brain injury Status: Chronic Current Visit: No (9) Type 2 diabetes mellitus Status: Chronic Comment: poorly controlled Current Visit: No (10) Hypertension Status: Chronic Current Visit: No - Allergies/Procedures Done in Hospital Allergies/Adverse Reactions: Allergies gabapentin [From Neurontin] Allergy (Verified 09/23/17 06:47) Other morphine Adverse Reaction (Verified 09/23/17 06:47) CAUSES FLASH BACKS- PTSD - Type of Care/Length of Stay Estimated LOS: More Than 30 Days Type of Care Needed: Skilled Rehab Potential: Fair Prognosis: Fair - Additional Orders/Day of Discharge Day of Discharge: 10/29/17 - Dietary and Speech Recommendations Dietitian Recommendations/Changes: Continue to provide ensure enlive milkshakes w/ lunch and dinner - Follow Up Care Primary Care Physician: Pollo Skelton,Out of [Primary Care Provider] - Please follow up with your Primary Care Physician in: 1 week. Please Follow Up With: Dr Andrew Please Follow Up With: Xochilt Rebolledo for Dr. Prado
--- NOTE | 2017-10-28 21:43 | PCM.DC.SUM ---
Discharge Date and Diagnosis - Problem List Patient Problems: Active and Suspected Problems Olecranon bone spur (Acute) Fracture of olecranon process of ulna (Acute) Non-healing wound of amputation stump (Acute) Fall (Acute) Date of Admission: 09/10/17 Date of Discharge: 10/29/17 - Primary Discharge Diagnosis Active and Suspected Problems Olecranon bone spur (Acute) Fracture of olecranon process of ulna (Acute) Non-healing wound of amputation stump (Acute) Fall (Acute) - Secondary Discharge Diagnosis Chronic Problems Osteomyelitis of left tibia (Chronic) Ulceration of below knee amputation stump (Chronic) nonhealing diabetic ulcer left BKA stump Complication of amputation stump of left lower extremity (Chronic) Chronic pain syndrome (Chronic) Chronic renal failure, stage 2 (mild) (Chronic) stage 2-3 Hyperlipidemia (Chronic) Allergic rhinitis (Chronic) Polyneuropathy (Chronic) Insomnia (Chronic) Depression (Chronic) Traumatic brain injury (Chronic) Status post bilateral below knee amputation (Chronic) Type 2 diabetes mellitus (Chronic) poorly controlled Hypertension (Chronic) Hospital Course and Treatment Imaging Results: 09/15/17 09:56 Diet: Regular Diet Is pt able to select menu?: Yes Diet Comments: Cup with lid and scoop plate Clinical Impression(s) from Imaging Studies Ribs w/Chest X-Ray 09/21/17 19:47 IMPRESSION: RIBS: Fracture of the left lateral seventh and sixth rib. There is no pneumothorax. CHEST: Fracture of the left lateral seventh and sixth rib. There is no pneumothorax. Electronically Signed: Boogie Yanes MD at 21:39 EDT , Service support , Hip/Pelvis X-Ray 09/21/17 19:49 IMPRESSION: Normal x-ray examination of the pelvis and bilateral hips. Electronically Signed: Boogie Yanes MD at 21:36 EDT , Service support , Elbow X-Ray 10/07/17 13:59 IMPRESSION: There is a prominent triceps insertion spur upon the posterior ulna which I suspect has been fractured after the fall. There is associated bursal swelling No demonstrated fracture or elbow arthrosis Vascular calcifications Electronically Signed: Lake Collado MD at 16:14 EDT , Service support , Shoulder X-Ray 10/07/17 13:59 IMPRESSION: Arthrosis, no demonstrated fracture or aggressive osseous lesion Electronically Signed: Lake Collado MD at 16:12 EDT , Service support , KUB X-Ray 10/16/17 10:04 IMPRESSION: Unremarkable gas pattern. Electronically Signed: Obi Maier MD at 10:48 EDT Tel , Service support , Labs (Last 48 Hours) 10/27/17 10/27/17 10/27/17 05:51 11:08 17:10 POC Glucose 143 H 365 H 283 H 10/28/17 10/28/17 10/28/17 06:33 11:18 17:22 POC Glucose 159 H 195 H 285 H 10/28/17 21:00 POC Glucose 333 H Consultations 09/10/17 Consult: Onc/Wound/cone treater Routine Comment: wound to LLE with wound vac Operations: None Procedures: None Summary of Care Provided: The patient is a 62 year old Male with below past medical history hospitalized originally for residential placement, complicated by left below the knee amputation stump abscess, requiring incision, drainage 09/07/[address] Andrew admitted to TCU with debility, her for rehabilitation, strengthening, wound care, prior to disposition determination. Wound vac applied to left BKA stump wound. [facility]charge to [facility]. Discharge Diet: No Restrictions Discharge Activity: Use Walker Weight Bearing Status: Partial weight bearing Call your doctor if you observe: Fever of 101 or Higher, Inability to urinate, Inability to have a bowel movement, Shortness of breath, Chest pain, Uncontrolled pain Home Medications: Medications to take at Discharge Atorvastatin Calcium 20 mg PO QHS 09/03/17 Donepezil HCl 10 mg PO DAILY 09/03/17 Fluticasone/Salmeterol [Advair 100-50 Diskus] 1 each IH BID 09/03/17 Loratadine 10 mg PO DAILY 09/03/17 Pregabalin [Lyrica] 150 mg PO BID 09/03/17 Trazodone HCl 150 mg PO QHS 09/03/17 Valsartan [Diovan] 320 mg PO DAILY 09/03/17 Oxycodone [Oxyir] 15 mg PO Q4H PRN PRN #1 tablet 09/10/17 Acetaminophen [Tylenol] 1,000 mg PO Q8H PRN tablet 10/28/17 Bisacodyl [Dulcolax] 10 mg PO DAILY PRN tablet 10/28/17 Fluticasone/Salmeterol [Fluticasone-Salmeterol 232-14] 1 puff IH Q12 inhaler 10/28/17 Insulin Glargine [Lantus SoloStar Pen] 20 units SC BID pen 10/28/17 Insulin Lispro [Humalog KwikPen] 13 unit SC TIDAC insuln.pen 10/28/17 Iron Polysaccharide Complex [Ferrex 150] 150 mg PO DAILYCM capsule 10/28/17 Loperamide [Imodium] 2 mg PO Q6H PRN PRN capsule 10/28/17 Menthol/Lanolin/Calamine/Znox [Calmoseptine Ointment] 1 applic TOPICAL BID tube 10/28/17 Nutritional Supplement [Eleuterio - ORANGE FLAVOR] 1 packet PO BIDCM packet 10/28/17 Paroxetine HCl [Paxil] 40 mg PO QHS tablet 10/28/17 Polyethylene Glycol 3350 [Miralax] 17 gm PO DAILY PRN packet 10/28/17 Pregabalin [Lyrica] 150 mg PO BID capsule 10/28/17 Senna/Docusate Sodium [Senokot-S] 2 tablet PO BID PRN PRN tablet 10/28/17 Primary Care Physician: [facility] Doctor,Out of [Primary Care Provider] - Please follow up with your Primary Care Physician in: 1 week. Please Follow Up With: Dr Andrew Please Follow Up With: Xochilt Rebolledo for Dr. Prado When: 2 weeks. Disposition: Retirement facility Minutes spent on discharge:: 35 Patient Condition:: Stable Medical Necessity - Tobacco Use Smoking Status: Former smoker Tobacco Use: Non-smoker Meaningful Use Info Meaningful Use Diagnoses (Choose all that apply): None applicable
[2017-10-29] MEDS: diazePAM 5 MG Tablet PO ×2 (02:35→11:27)
[2017-10-29] MEDS: oxyCODONE 5 MG Tablet PO (05:28)
[2017-10-29] MEDS: Fluticasone/Salmeterol 232-14 Inhaler 1 PUFF IH (05:30)
[2017-10-29] MEDS: Menthol/Lanolin/Calamine/Znox 113 GM Tube 1 APPLIC TOPICAL (05:30)
[2017-10-29] MEDS: Pregabalin 75 MG Capsule 150 MG PO (05:30)
[2017-10-29] MEDS: Enoxaparin 40 MG/0.4 ML Syringe SC (05:31)
[2017-10-29 06:21] LABS: Bedside Glucose 156 mg/dL (70-110)
[2017-10-29 10:00] VITALS: PULSE 72; RESP 18; O2SAT 94
--- NOTE | 2017-10-29 10:45 | CASEMGMT ---
Social Work Faxed discharge information along with transfer form. Proposed discharge date: 10/29/17 PLAN: Discharge to the [facility]. Dai HARTLEY, SKOOG OPERATOR
--- NOTE | 2017-10-29 11:16 | CASEMGMT ---
Social Work Telephone call to resident PASSPORT case packer and sealer - Lola Lacey. [phone]. This social work associate left confidential voicemail informing Lola Lacey of resident discharge. Proposed discharge date: 10/29/17. PLAN: Discharge to [facility] HARTLEY, WHANAU SUPPORT WORKER
[2017-10-29 11:26] LABS: Bedside Glucose 224 mg/dL (70-110)
--- NOTE | 2017-10-29 11:30 | NURSING ---
Pt blood sugar elevated 224, Pt refusing Humalog insulin at this time. this nurse educated Pt on short acting insulin. Pt continues to refuse
--- NOTE | 2017-10-29 14:11 | NURSING ---
report called to [facility] with no questions voiced. all belongings packed and meds from home packed and given to [facility] personel.
[2017-10-29 14:31] VITALS: BP 136/75; PULSE 67; RESP 16; TEMP 36.7; O2SAT 95
--- NOTE | 2017-10-29 15:27 | PCA ---
CALLED [facility] ON THIS DATE TO RETURN WOUND VAC. SPOKE WITH CLAUDIA, CONFIRMATION # [id number]
== END 2017-10-29 14:05 | disposition skilled nursing facility (03) | DRG 949 ==
PROVIDERS: Admitting Provider Family Medicine Geriatric Medicine; Visit Provider Family Medicine Geriatric Medicine
DX: Z48.817 Encounter for surgical aftercare following surgery on the skin and subcutaneous tissue (principal); T87.44 Infection of amputation stump, left lower extremity; L97.829 Non-pressure chronic ulcer of other part of left lower leg with unspecified severity; Y83.8 Other surgical procedures as the cause of abnormal reaction of the patient, or of later complication, without mention of misadventure at the time of the procedure; E78.5 Hyperlipidemia, unspecified; G62.9 Polyneuropathy, unspecified; F32.9 Major depressive disorder, single episode, unspecified; Z87.820 Personal history of traumatic brain injury; G25.81 Restless legs syndrome; A49.01 Methicillin susceptible Staphylococcus aureus infection, unspecified site; E11.622 Type 2 diabetes mellitus with other skin ulcer; G89.4 Chronic pain syndrome; E11.22 Type 2 diabetes mellitus with diabetic chronic kidney disease; I12.9 Hypertensive chronic kidney disease with stage 1 through stage 4 chronic kidney disease, or unspecified chronic kidney disease; N18.2 Chronic kidney disease, stage 2 (mild); Z87.891 Personal history of nicotine dependence; S52.021A Displaced fracture of olecranon process without intraarticular extension of right ulna, initial encounter for closed fracture; W19.XXXA Unspecified fall, initial encounter; Z91.81 History of falling; Y92.129 Unspecified place in nursing home as the place of occurrence of the external cause; D50.9 Iron deficiency anemia, unspecified
CPT/HCPCS: 36415; 71101; 73030; 73070; 73521; 74018; 80048; 82962; 85025; 97110; 97112; 97116; 97162; 97166; 97530; 97535; 97542; A4216

== ENCOUNTER → 2017-09-21 19:58 | Outpatient (CLI) | payer MEDICARE, MEDICAID, SELFPAY ==
--- NOTE | 2017-09-21 20:05 | CT_ITS ---
STUDY: CT BRAIN WITHOUT CONTRAST REASON FOR EXAM: Male, 62 years old. FALL RADIATION DOSAGE (If Supplied By Facility): CTDIvol = ( 44.99 ) mGy, DLP = ( 812.98 ) mGycm TECHNIQUE: Transaxial CT imaging of the brain was performed without administration of intravenous contrast material. COMPARISON: None. FINDINGS: Normal soft tissue structures. Normal calvarium. There are calcifications noted in the distal vertebral arteries. There are calcifications noted in the cavernous carotid arteries. This is consistent for atherosclerotic disease. There is mild cerebral atrophy with widening of the extra-axial spaces and ventricular dilatation. There are areas of decreased attenuation within the white matter tracts of the supratentorial brain, consistent with microvascular disease changes. Normal basal ganglia and thalami. Normal brainstem. There is mild cerebellar atrophy. There is no intracranial hemorrhage. There are no findings of an acute ischemic infarction. There is mild maxillary sinus disease. CT/Brain/Head without Contrast IMPRESSION: Chronic involutional changes of the brain. There are no acute findings. There is sinus disease. Electronically Signed: Boogie Yanes MD at 21:56 EDT , Service support ,
== END ==
PROVIDERS: Visit Provider Family Medicine Geriatric Medicine
DX: Z91.81 History of falling (principal)
CPT/HCPCS: 70450

== ENCOUNTER 2017-09-23 06:46 | Emergency (ER) | payer MEDICARE, MEDICAID, SELFPAY ==
[2017-09-23 06:48] VITALS: BP 125/72; PULSE 92; RESP 32; TEMP 36.8; O2SAT 97; BMI 39.4
--- NOTE | 2017-09-23 06:54 | EKG12_ITS ---
Test Reason : CP Blood Pressure : / mmHG Vent. Rate : 091 BPM Atrial Rate : 091 BPM P-R Int : 220 ms QRS Dur : 080 ms QT Int : 348 ms P-R-T Axes : 051 040 062 degrees QTc Int : 428 ms Sinus rhythm with 1st degree A-V block Otherwise normal ECG Confirmed by ANDRY ANDERSON, ALEX ([id number]), assignment desk editor FANY MACKEY ([id number]) on 09/27/2017 3:42:35 PM Referred By: CLIFFORD Confirmed By:ALEX WILDE MD
--- NOTE | 2017-09-23 06:57 | NURSING ---
NO OLD EKGS
--- NOTE | 2017-09-23 07:01 | NURSING ---
NO LW OR POA
[2017-09-23] MEDS: Ketorolac 30 MG/ML Syringe IV (07:26)
--- NOTE | 2017-09-23 07:30 | RAD_ITS ---
STUDY: X-RAY CHEST REASON FOR EXAM: Male, 62 years old. Chest pain TECHNIQUE: Single AP portable view of the chest. COMPARISON: 09/21/2017 FINDINGS: Cardiac monitoring leads overlie the chest. The lungs are clear and expanded. There is no demonstrated pleural abnormality. Normal size heart. Normal mediastinum and serg. Normal visualized pulmonary arteries. Normal visualized aortic arch and descending thoracic aorta. Normal visualized thoracic spine. Bilateral remote rib fractures are seen. Remote left clavicle fracture is present. There is no demonstrated abnormality of the visualized soft tissue structures of the upper abdomen. RAD/Chest 1 View (Portable) IMPRESSION: No acute process. Electronically Signed: Mikael Post DO at 7:52 EDT Tel , Service support ,
[2017-09-23 07:55] VITALS: BP 132/61; PULSE 87; RESP 16; O2SAT 94
[2017-09-23 08:23] VITALS: BP 91/53; PULSE 83; RESP 12; O2SAT 94
--- NOTE | 2017-09-23 08:23 | ED.DCSUM_ITS ---
- ER Visit Summary Date of Service: 09/23/17 Chief Complaint: Left chest pain History of Present Illness: The patient is a 62 M who is currently in the TCU. Patient states that he rolled to his right side yesterday fell out of bed twice. He had x-rays yesterday that demonstrated left rib fractures of the sixth and seventh rib. Patient describes his pain as sharp and stabbing located in that exact area. It is worse with movement coughing. No hemoptysis. Physical Examination: Afebrile vital signs stable Gen: Well-nourished well-developed Head: Normocephalic atraumatic Eyes: Perrl EOMI ENT: TMs clear no rhinorrhea moist mucous membranes Neck: Supple no lymphadenopathy no JVD nontender CVS: Regular rate rhythm no murmurs normal S1-S2 Respiratory: No distress clear to auscultation bilaterally left chest tender to palpation mid axillary line and anterior Abdomen: Soft nontender nondistended normal bowel sounds no masses Back: Nontender Extremity: Bilateral BKA Skin: Normal color no rash Neuro: alert orientated ?3 CN II-XII intact normal strength sensation Psych: Normal affect normal mood Test Results: EKG obtained per protocol demonstrated a sinus rhythm at a rate of [address] segments. Emergency Department Course and Treatment: Chest x-ray does not show any infiltrate or pneumothorax. Patient received a dose of Toradol. He will be discharged back to TCU. Patient has narcotics on his MAR Impression: 1. Left chest pain secondary to left sixth and seventh rib fracture This note was generated with [employer] dictation software. It may contain incorrect words, spelling, and punctuation that were not noted in review of the chart prior to signing ED Disposition - Plan for ED Patient: Disposition: Home or Assisted Living Chief Complaint: Chest Pain Instructions: ED Fx Rib Referrals: Jez Horn Chi, MD [COURTESY STAFF PHYSICIAN] - 1 Week
== END 2017-09-23 08:51 | disposition home or self-care (01) ==
PROVIDERS: Emergency Provider Emergency Medicine
DX: S22.32XA Fracture of one rib, left side, initial encounter for closed fracture (principal); W06.XXXA Fall from bed, initial encounter; Y93.9 Activity, unspecified; Y92.230 Patient room in hospital as the place of occurrence of the external cause; Y99.9 Unspecified external cause status; G89.29 Other chronic pain; I12.9 Hypertensive chronic kidney disease with stage 1 through stage 4 chronic kidney disease, or unspecified chronic kidney disease; E11.22 Type 2 diabetes mellitus with diabetic chronic kidney disease; N18.9 Chronic kidney disease, unspecified; Z79.4 Long term (current) use of insulin; Z79.891 Long term (current) use of opiate analgesic; Z79.899 Other long term (current) drug therapy; Z87.820 Personal history of traumatic brain injury; Z89.512 Acquired absence of left leg below knee; Z89.511 Acquired absence of right leg below knee
CPT/HCPCS: 71045; 93005; 96374; 99283; A4216

== ENCOUNTER → 2017-09-28 10:18 | Outpatient (CLI) | payer MEDICARE, MEDICAID, SELFPAY ==
--- NOTE | 2017-09-28 10:21 | CT_ITS ---
STUDY: CT BRAIN WITHOUT CONTRAST REASON FOR EXAM: Male, 62 years old. Altered mental status. RADIATION DOSAGE (If Supplied By Facility): CTDIvol = ( 44.99 ) mGy, DLP = ( 863.60 ) mGycm TECHNIQUE: Transaxial CT imaging of the brain was performed without administration of intravenous contrast material. Individualized dose optimization techniques were used for this CT. COMPARISON: Comparison is made with prior study dated September 21, 2017. FINDINGS: Normal soft tissue structures. Normal calvarium. There is mild cerebral atrophy with widening of the extra-axial spaces and ventricular dilatation. There are areas of decreased attenuation within the white matter tracts of the supratentorial brain, consistent with microvascular disease changes. Normal basal ganglia and thalami. Normal brainstem. Normal cerebellum. There is no intracranial hemorrhage. There are no findings of an acute ischemic infarction. Atherosclerotic calcification of the vertebral arteries and cavernous portions of the internal carotid arteries bilaterally. Nodular mucosal thickening of the maxillary sinus bilaterally slightly worse on the right side. CT/Brain/Head without Contrast IMPRESSION: Chronic involutional changes of the brain. Electronically Signed: Sigifredo Lopez MD at 10:59 EDT Tel [phone], Service support ,
== END ==
PROVIDERS: Visit Provider Family Medicine Geriatric Medicine
DX: R41.82 Altered mental status, unspecified (principal)
CPT/HCPCS: 70450

== ENCOUNTER → 2017-10-07 12:24 | Outpatient (CLI) | payer MEDICARE, MEDICAID, SELFPAY ==
--- NOTE | 2017-10-07 12:35 | CT_ITS ---
STUDY: CT BRAIN WITHOUT CONTRAST REASON FOR EXAM: Male, 62 years old. Fall with confusion RADIATION DOSAGE (If Supplied By Facility): CTDIvol = ( 44.99 ) mGy, DLP = ( 796.11 ) mGycm TECHNIQUE: Transaxial CT imaging of the brain was performed without administration of intravenous contrast material. Individualized dose optimization techniques were used for this CT. COMPARISON: 09/28/2017 FINDINGS: Normal soft tissue structures. Normal calvarium. There is mild cerebral atrophy with widening of the extra-axial spaces and ventricular dilatation. There are areas of decreased attenuation within the white matter tracts of the supratentorial brain, consistent with microvascular disease changes. Normal basal ganglia and thalami. Normal brainstem. Normal cerebellum. There is no intracranial hemorrhage. There are no findings of an acute ischemic infarction. There is mucoperiosteal inflammatory disease of the paranasal sinuses consistent with mild chronic sinusitis. CT/Brain/Head without Contrast IMPRESSION: Chronic involutional changes of the brain. Electronically Signed: Fernando Hernandez DO at 13:43 EDT Tel , Service support ,
== END ==
PROVIDERS: Visit Provider Family Medicine Geriatric Medicine
DX: R41.0 Disorientation, unspecified (principal); W19.XXXA Unspecified fall, initial encounter
CPT/HCPCS: 70450

== ENCOUNTER 2017-11-17 13:00 | Emergency (ER) | payer MEDICARE, MEDICAID, SELFPAY ==
[2017-11-17 13:06] VITALS: BP 184/86; PULSE 76; PULSE 81; RESP 14; TEMP 36.7; O2SAT 98; BMI 29.4
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
--- NOTE | 2017-11-17 15:01 | ED.DEP ---
ED Disposition - Plan for ED Patient: Chief Complaint: Fall Instructions: ED Mechanical Fall, ED Head Injury Closed, ED Sprain Strain Neck Referrals: Andrew De La Rosa MD [Primary Care Provider] - 3-5 Days
[2017-11-17 15:02] VITALS: BP 170/75; BP 175/70; PULSE 70; PULSE 80; RESP 14; O2SAT 98
[2017-11-17] MEDS: HYDROmorphone 1 MG/ML Syringe IM (15:10)
== END 2017-11-17 15:49 | disposition home or self-care (01) ==
PROVIDERS: Emergency Provider Emergency Medicine; Family Provider Family Medicine; PCP Family Medicine
DX: S06.9X1A Unspecified intracranial injury with loss of consciousness of 30 minutes or less, initial encounter (principal); S16.1XXA Strain of muscle, fascia and tendon at neck level, initial encounter; S40.012A Contusion of left shoulder, initial encounter; W05.0XXA Fall from non-moving wheelchair, initial encounter; Y93.E1 Activity, personal bathing and showering; Y92.128 Other place in nursing home as the place of occurrence of the external cause; Y99.9 Unspecified external cause status; E11.9 Type 2 diabetes mellitus without complications; I10 Essential (primary) hypertension; M54.9 Dorsalgia, unspecified; G89.29 Other chronic pain; F32.9 Major depressive disorder, single episode, unspecified; Z79.4 Long term (current) use of insulin; Z79.899 Other long term (current) drug therapy; Z89.612 Acquired absence of left leg above knee; Z89.611 Acquired absence of right leg above knee; Z87.820 Personal history of traumatic brain injury
CPT/HCPCS: 70450; 71045; 72125; 73030; 96372; 99284; J7030